=== PATIENT | female | born 1950 | race Caucasian/White ===

== ENCOUNTER 2020-06-17 15:12 | Outpatient (REF) | payer MEDICARE, MEDICAID, SELFPAY ==
--- NOTE | 2020-06-17 | MM_ITS ---
EXAMINATION: MM SCREENING DIGITAL BREAST TOMOSYNTHESIS, BILATERAL CLINICAL INFORMATION: Screening. Asymptomatic. The lifetime risk of breast cancer based on the Tyrer-Cuzick Model is 4%. COMPARISON: Mammography: 12/11/2018, 11/11/2017, 10/18/2016 TECHNIQUE: Digital breast tomosynthesis is performed in both the craniocaudal and mediolateral oblique views along with computer-aided detection (CAD). Synthesized 2D images are generated from the tomosynthesis. FINDINGS: There are scattered areas of fibroglandular density (ACR BI-RADS breast composition Category b). The right breast shows no significant mass or architectural abnormality. There are bilateral benign vascular and round and some coarse calcifications. The axilla and skin contours are unremarkable. The left breast has questionable small irregular focal asymmetric density 2:30 o'clock position mid depth. Patient will be recalled for additional imaging. MM/MM tomosynthesis screening BI IMPRESSION: 1. Left: Subtle focal asymmetric density mid 2:30 o'clock position. 2. Right: No mammographic evidence of malignancy. ASSESSMENT: BI-RADS 0: Incomplete - Need Additional Imaging Evaluation RECOMMENDATION: 1. Additional views of the left breast (3D spot CC; 3D spot ML). 2. Targeted ultrasound if warranted after review of the additional views. 3. Radiology department staff will contact the patient for additional imaging. This patient's information was entered into a reminder system with a target due date for their next mammogram.
== END 2020-06-17 15:13 | disposition home or self-care (01) ==
LOC: HO.MAMMO 15:12
PROVIDERS: PCP Internal Medicine; Visit Provider Internal Medicine
DX: Z12.31 Encounter for screening mammogram for malignant neoplasm of breast (principal)
CPT/HCPCS: 77063; 77067

== ENCOUNTER 2020-07-08 12:49 | Outpatient (REF) | payer MEDICARE, MEDICAID, SELFPAY ==
--- NOTE | 2020-07-08 12:54 | MM_ITS ---
EXAMINATION: MM DIAGNOSTIC DIGITAL BREAST TOMOSYNTHESIS, RIGHT CLINICAL INFORMATION: Density upper outer aspect COMPARISON: Mammography: June 17, 2020 and studies dating back to November 10, 2012 TECHNIQUE: Digital breast tomosynthesis is performed. 2D images are generated from the tomosynthesis. The following views are obtained: Spot compression craniocaudal and 90 degree mediolateral views. FINDINGS: There are scattered areas of fibroglandular density (ACR BI-RADS breast composition Category b). These spot compression views compress out the region to a similar appearance of prior studies dating back to September 28, 2015. No new persistent suspicious lesion is identified. Results are provided to the patient at time of visit by the technologist. MM/MM tomosynthesis added views L IMPRESSION: No specific mammographic evidence to suggest malignancy of the left breast. ASSESSMENT: BI-RADS 1: Negative RECOMMENDATION: Routine annual mammography screening due in 12 months. This patient's information was entered into a reminder system with a target due date for their next mammogram.
== END 2020-07-08 12:50 | disposition home or self-care (01) ==
LOC: HO.MAMMO 12:49
PROVIDERS: PCP Internal Medicine; Visit Provider Internal Medicine
DX: R92.2 Inconclusive mammogram (principal)
CPT/HCPCS: 77061; 77065

== ENCOUNTER 2021-01-09 09:22 | Outpatient (REF) | payer MEDICARE, MEDICAID, SELFPAY ==
[2021-01-09 09:57] LABS: MANUAL DIFF FLAG NO
[2021-01-09 10:00] LABS: Basophils Percent Auto 0.5 % (0-2); Eosinophils Absolute Auto 0.1 X10*3/uL (0.0-0.4); Eosinophils Percent Auto 1.7 % (0-4); Hematocrit 38.4 % (37-47); Hemoglobin 13.3 g/dl (12.0-16.0); Imm Gran Abs Auto 0.02 X10*3/uL (0.00-0.03); Imm Gran Pct Auto 0.3 % (0.0-0.4); Lymphocytes Absolute Auto 1.8 X10*3/uL (1.2-4.9); Lymphocytes Percent Auto 29.5 % (20-40); Mean Corpuscular HGB Conc 34.6 g/dl (31.0-35.0); Mean Corpuscular Volume 86.7 fL (80-98); Mean Platelet Volume 9.6 fL (9.4-12.3); Monocytes Absolute Auto 0.3 X10*3/uL (0.1-1.2); Monocytes Percent Auto 5.6 % (2-11); Neutrophils Absolute Auto 3.8 X10*3/uL (2.0-8.3); Neutrophils Percent Auto 62.4 % (45-73); Platelet Count 185 X10*3/uL (160-400); Red Blood Count 4.43 X10*6/uL (4.20-5.50)
[2021-01-09 10:30] LABS: Alanine Aminotransferase 22 U/L (0-31); Albumin Level 4.3 g/dL (3.5-5.0); Alkaline Phosphatase 65 U/L (39-117); Anion Gap 13 (12-20); Aspartate Amino Transferase 16 U/L (5-31); Blood Urea Nitrogen 18 mg/dL (9-16); Calcium 9.1 mg/dL (8.4-10.2); Carbon Dioxide 27 mmol/L (22-29); Chloride 106 mmol/L (96-108); Cholesterol 203 mg/dL; Estimated Glomerular Filt Rate > 60; Glucose Random 100 mg/dL (60-115); HDL Cholesterol 44 mg/dL; LDL Cholesterol Calculated 129 mg/dl; Potassium 4.3 mmol/L (3.3-5.1); Sodium 142 mmol/L (135-145); Total Protein 6.4 g/dL (6.5-8.0); Triglycerides 151 mg/dL
[2021-01-09 10:50] LABS: Free T4 (Free Thyroxine) 1.04 ng/dL (0.71-1.85); Thyroid Stimulating Hormone 0.24 uIU/mL (0.32-4.0); Vitamin D 25-OH Total 45.4 ng/mL (>30)
[2021-01-09 10:59] LABS: Folate 18.6 ng/mL (> or = 4.0); Vitamin B12 608 pg/mL (200-900)
== END 2021-01-09 09:23 | disposition home or self-care (01) ==
LOC: HO.LAB 09:22
PROVIDERS: PCP Internal Medicine; Visit Provider Internal Medicine
DX: E78.00 Pure hypercholesterolemia, unspecified (principal); I10 Essential (primary) hypertension
CPT/HCPCS: 36415; 80053; 80061; 82306; 82607; 82746; 84439; 84443; 85025

== ENCOUNTER 2021-07-27 11:41 | Outpatient (REF) | payer MEDICARE, MEDICAID, SELFPAY ==
--- NOTE | ~2021-07-27 | MM_ITS ---
EXAMINATION: MM SCREENING DIGITAL BREAST TOMOSYNTHESIS, BILATERAL CLINICAL INFORMATION: Screening. Asymptomatic. The lifetime risk of breast cancer based on the Tyrer-Cuzick Model is 3%. COMPARISON: Mammography: 07/08/2020, 06/17/2020, 12/11/2018, 11/11/2017 TECHNIQUE: Digital breast tomosynthesis is performed in both the craniocaudal and mediolateral oblique views along with computer-aided detection (CAD). Synthesized 2D images are generated from the tomosynthesis. FINDINGS: There are scattered areas of fibroglandular density (ACR BI-RADS breast composition Category b). The left breast shows no significant mass or developing density. Neither breast shows abnormal calcifications or interval architectural changes. The axilla and skin contours are unremarkable. Right breast has nodule 12:00 position anterior to mid depth under 1 cm, increased from prior studies. Margins are incompletely defined. Patient will be recalled for additional imaging to further characterize. MM/MM tomosynthesis screening BI IMPRESSION: 1. Right: Nodule 12:00 position increased from prior exams, margins incompletely defined. 2. Left: No mammographic evidence of malignancy. ASSESSMENT: BI-RADS 0: Incomplete - Need Additional Imaging Evaluation RECOMMENDATION: 1. Additional views of the right breast for margins (spot CC, spot ML). 2. Targeted ultrasound right breast. 3. Radiology department staff will contact the patient for additional imaging. This patient's information was entered into a reminder system with a target due date for their next mammogram.
== END 2021-07-27 11:42 | disposition home or self-care (01) ==
LOC: HO.MAMMO 11:41
PROVIDERS: Visit Provider Internal Medicine
DX: Z12.31 Encounter for screening mammogram for malignant neoplasm of breast (principal)
CPT/HCPCS: 77063; 77067

== ENCOUNTER 2021-08-17 13:47 | Outpatient (REF) | payer MEDICARE, MEDICAID, SELFPAY ==
--- NOTE | ~2021-08-17 | MM_ITS ---
EXAMINATION: MM DIAGNOSTIC DIGITAL BREAST TOMOSYNTHESIS, RIGHT US DIAGNOSTIC ULTRASOUND BREAST, RIGHT CLINICAL INFORMATION: Recall from screening for nodule anterior 12:00 position with incompletely defined margins. COMPARISON: Mammography: 07/27/2021, 06/17/2020, 12/11/2018 TECHNIQUE: Digital breast tomosynthesis is performed. 2D images are generated from the tomosynthesis. The following views are obtained: Spot CC, spot ML. Ultrasound right breast is targeted to the upper breast. Grayscale imaging and color Doppler are performed without and with harmonics. FINDINGS: There are scattered areas of fibroglandular density (ACR BI-RADS breast composition Category b). The additional views demonstrate nodule anterior 12:00 right breast, approximately 0.6 cm. Margins appear smooth. There is no spiculation. Ultrasound demonstrates a simple cyst 12:00 position 4 cm from nipple measuring 0.5 cm. There is increased through-transmission of sound. No associated internal or peripheral color flow. There are 2 adjacent smaller satellite cysts in the area. No solid mass or architectural abnormality. Results are discussed with the patient at time of visit. MM/MM tomosynthesis added views R IMPRESSION: Incidental simple cysts 12:00 anterior breast, largest 0.5 cm and corresponding to finding on mammography. ASSESSMENT: BI-RADS 2: Benign RECOMMENDATION: Routine annual mammography screening. This patient's information was entered into a reminder system with a target due date for their next mammogram.
== END 2021-08-17 13:48 | disposition home or self-care (01) ==
LOC: HO.MAMMO 13:47
PROVIDERS: PCP Internal Medicine; Visit Provider Internal Medicine
DX: R92.2 Inconclusive mammogram (principal); N63.25 Unspecified lump in the left breast, overlapping quadrants
CPT/HCPCS: 76642; 77061; 77065

== ENCOUNTER 2021-09-15 12:41 | Outpatient (REF) | payer MEDICARE, MEDICAID, SELFPAY ==
--- NOTE | ~2021-09-15 | MM_ITS ---
EXAMINATION: BONE DENSITOMETRY CLINICAL INDICATION: Menopause. COMPARISON: Previous BD dated 04/02/2019 and baseline BD dated 04/12/2009. TECHNIQUE: Using a [employer] DXA System (software version: 13.1) manufactured by [employer], dual-energy x-ray absorptiometry was performed of the lumbar spine and left hip. The images are of good technical quality. Summary results are attached. FINDINGS: AP SPINE L1-L4: Current: BMD 1.007 g/cm2, Z-score 0.0, T-score -1.4, osteopenia, 4.1% increase from previous, 20.6% increase from baseline (<5% change is not significant). Prior: BMD 0.967 g/cm2. Baseline: BMD 0.835 g/cm2. LEFT FEMUR, NECK: Current: BMD 0.763 g/cm2, Z-score -0.3, T-score -2.0, osteopenia. Prior: BMD 0.835 g/cm2. Baseline: BMD 0.867 g/cm2. LEFT FEMUR, TOTAL: Current: BMD 0.834 g/cm2, Z-score 0.0, T-score -1.4, osteopenia, 3.1% decrease from previous, 7.8% decrease from baseline (<5% change is not significant). Prior: BMD 0.861 g/cm2. Baseline: BMD 0.905 g/cm2. IDENTIFIED RISK FACTORS: Early menopause, history of fracture (adult), hysterectomy, osteoporosis, secondary osteoporosis. HISTORY OF FRACTURE: Humerus, shoulder. MEDICATIONS: Calcium or multivitamin. Vitamin D. MM/XR DEXA axial skeleton IMPRESSION: 1. DIAGNOSIS: Osteopenia based on the lowest T-score value of -2.0 in the femoral neck applying World Health Organization criteria. 2. 10-YEAR FRACTURE RISK PREDICTION, FRAX: Major osteoporotic fracture (clinical spine, forearm, hip or shoulder) 18.7%. Hip fracture 3.9%. 3. Treatment Recommendations: NOF guidelines recommend consideration for treatment in postmenopausal women and men age 50 and older presenting with the following: -A hip or vertebral (clinical or morphometric) fracture. -T-score less than or equal to -2.5 at the femoral neck or spine after appropriate evaluation to exclude secondary causes. -Low bone mass at the hip or spine and a 10-year fracture probability by FRAX of greater than or equal to 3% for hip fracture or greater than or equal to 20% for major osteoporotic fracture based on the [place] adapted WHO algorithm. 4. Other Recommendations: All treatment decisions require clinical judgment and consideration of individual patient factors, including patient preferences, comorbidities, previous drug use, risk factors not captured in the FRAX model (e.g. frailty, falls, vitamin D deficiency, increased bone turnover, interval significant decline in bone density) and possible under or overestimation of fracture risk by FRAX. Additional medical evaluation for secondary cause of low bone mineral density may be appropriate. FUTURE SCAN RECOMMENDATION: People with diagnosed cases of osteoporosis or at high risk for fracture should have regular bone mineral density tests. For patients eligible for Medicare, routine testing is allowed once every 2 years. The testing frequency can be increased to one year for patients who have rapidly progressing disease, those who are receiving or discontinuing medical therapy to restore bone mass, or have additional risk factors.
== END 2021-09-15 12:42 | disposition home or self-care (01) ==
LOC: HO.MAMMO 12:41
PROVIDERS: Visit Provider Nurse Practitioner Family
DX: Z13.820 Encounter for screening for osteoporosis (principal); Z78.0 Asymptomatic menopausal state
CPT/HCPCS: 77080

== ENCOUNTER 2022-03-08 12:34 | Outpatient (REF) | payer MEDICARE, MEDICAID, SELFPAY ==
[2022-03-08 12:59] LABS: MANUAL DIFF FLAG NO
[2022-03-08 13:27] LABS: Basophils Percent Auto 0.5 % (0-2); Eosinophils Absolute Auto 0.1 X10*3/uL (0.0-0.4); Eosinophils Percent Auto 1.4 % (0-4); Hematocrit 37.4 % (37.0-47.0); Hemoglobin 13.1 g/dl (12.0-16.0); Imm Gran Abs Auto 0.02 X10*3/uL (0.00-0.03); Imm Gran Pct Auto 0.2 % (0.0-0.4); Lymphocytes Absolute Auto 2.3 X10*3/uL (1.2-4.9); Lymphocytes Percent Auto 26.9 % (20-40); Mean Corpuscular Hemoglobin 30.5 pg (27.0-33.0); Mean Platelet Volume 9.7 fL (9.4-12.3); Monocytes Absolute Auto 0.5 X10*3/uL (0.1-1.2); Monocytes Percent Auto 5.6 % (2-11); Neutrophils Absolute Auto 5.6 x10*3/uL (2.0-8.3); Neutrophils Percent Auto 65.4 % (45-73); Platelet Count 198 X10*3/uL (160-400); Red Cell Distribution Width 12.9 % (11.0-16.0); White Blood Count 8.5 X10*3/uL (4.8-10.8)
[2022-03-08 14:12] LABS: Alanine Aminotransferase 29 U/L (0-31); Albumin Level 4.3 g/dL (3.5-5.0); Alkaline Phosphatase 67 U/L (39-117); Anion Gap 16 (12-20); Aspartate Amino Transferase 21 U/L (5-31); Bilirubin Total 1.1 mg/dL (0.0-1.0); Blood Urea Nitrogen 14 mg/dL (9-16); Calcium 9.1 mg/dL (8.4-10.2); Carbon Dioxide 27 mmol/L (22-29); Chloride 100 mmol/L (96-108); Cholesterol 208 mg/dL; Estimated Glomerular Filt Rate > 60; Glucose Random 85 mg/dL (60-115); HDL Cholesterol 42 mg/dL; LDL Cholesterol Calculated 128 mg/dl; Potassium 4.5 mmol/L (3.3-5.1); Sodium 138 mmol/L (135-145); Total Protein 6.6 g/dL (6.5-8.0); Triglycerides 191 mg/dL
[2022-03-08 14:35] LABS: Free T4 (Free Thyroxine) 1.09 ng/dL (0.71-1.85); Thyroid Stimulating Hormone 0.46 uIU/mL (0.32-4.0)
[2022-03-08 14:41] LABS: Folate > 20.0 ng/mL (> or = 4.0); Vitamin B12 607 pg/mL (200-900)
== END 2022-03-08 12:35 | disposition home or self-care (01) ==
LOC: HO.LAB 12:34
PROVIDERS: PCP Internal Medicine; Visit Provider Internal Medicine
DX: R79.89 Other specified abnormal findings of blood chemistry (principal); E78.00 Pure hypercholesterolemia, unspecified; I10 Essential (primary) hypertension
CPT/HCPCS: 36415; 80053; 80061; 82306; 82607; 82746; 84439; 84443; 85025

== ENCOUNTER 2022-08-01 11:48 | Outpatient (REF) | payer MEDICARE, MEDICAID, SELFPAY ==
--- NOTE | ~2022-08-01 | MM_ITS ---
EXAMINATION: MM SCREENING DIGITAL BREAST TOMOSYNTHESIS, BILATERAL CLINICAL INFORMATION: Screening. Asymptomatic. History excisional biopsy left breast, 1989. COMPARISON: Mammography: 08/17/2021, 07/27/2021, 07/08/2020, 06/17/2020, 12/11/2018, right breast ultrasound 08/17/2021 TECHNIQUE: Digital breast tomosynthesis is performed in both the craniocaudal and mediolateral oblique views along with computer-aided detection (CAD). Synthesized 2D images are generated from the tomosynthesis. FINDINGS: There are scattered areas of fibroglandular density (ACR BI-RADS breast composition Category b). Parenchymal pattern is similar to prior exams and there is no significant mass or interval architectural abnormality or developing density. A stable nodule 12:00 right breast is again seen consistent with cyst on prior ultrasound. The bilateral axilla and skin contours are unremarkable. Left breast shows no abnormal calcifications. The right breast has interval tightly grouped fine calcifications central 12:00 position 4 cm from nipple, possibly vascular. Patient will be recalled for additional imaging with magnification views to fully characterize. MM/MM tomosynthesis screening BI IMPRESSION: Right: -Tightly grouped fine calcifications central 12:00 position, possibly vascular. Left: -No mammographic evidence of malignancy. ASSESSMENT: BI-RADS 0: Incomplete - Need Additional Imaging Evaluation RECOMMENDATION: 1. Additional views of the right breast (magnification CC, magnification ML). 2. Radiology department staff will contact the patient for additional imaging. This patient's information was entered into a reminder system with a target due date for their next mammogram.
== END 2022-08-01 11:49 | disposition home or self-care (01) ==
LOC: HO.MAMMO 11:48
PROVIDERS: PCP Internal Medicine; Visit Provider Internal Medicine
DX: Z12.31 Encounter for screening mammogram for malignant neoplasm of breast (principal)
CPT/HCPCS: 77063; 77067

== ENCOUNTER 2022-08-17 09:11 | Outpatient (REF) | payer MEDICARE, MEDICAID, SELFPAY ==
--- NOTE | ~2022-08-17 | MM_ITS ---
EXAMINATION: MM DIAGNOSTIC DIGITAL MAMMOGRAPHY, RIGHT CLINICAL INFORMATION: Callback for calcifications. COMPARISON: Mammography: 08/01/2022 and studies dating back to 09/28/2015. TECHNIQUE: Digital mammography is performed in the following views: Spot magnification views of the right breast in craniocaudal and 90 degree mediolateral views. FINDINGS: There are scattered areas of fibroglandular density (ACR BI-RADS breast composition Category b). The grouping of calcifications within the superior lateral central region of the right breast are indeterminate in nature and stereotactic core biopsy is recommended. Results are discussed with the patient at time of visit. [facility] patient navigator called above recommendation to referring provider's office. MM/MM added views RT IMPRESSION: Right breast calcifications for which stereotactic core biopsy is recommended. ASSESSMENT: BI-RADS 4: Suspicious RECOMMENDATION: Stereotactic core biopsy of the right breast.
== END 2022-08-17 09:12 | disposition home or self-care (01) ==
LOC: HO.MAMMO 09:11
PROVIDERS: PCP Internal Medicine; Visit Provider Internal Medicine
DX: R92.1 Mammographic calcification found on diagnostic imaging of breast (principal)
CPT/HCPCS: 77065

== ENCOUNTER 2022-08-29 09:10 | Outpatient (REF) | payer MEDICARE, MEDICAID, SELFPAY ==
--- NOTE | ~2022-08-29 | MM_ITS ---
EXAMINATION: STEREOTACTIC TOMOSYNTHESIS-GUIDED VACUUM-ASSISTED BREAST BIOPSY, RIGHT SPECIMEN RADIOGRAPH, RIGHT POST PROCEDURE DIGITAL MAMMOGRAM, RIGHT CLINICAL INFORMATION: Tightly grouped fine calcifications mid 12:00 right breast. COMPARISON: Mammography 08/17/2022, 08/01/2022, 08/17/2021. TECHNIQUE/PROCEDURE: Informed consent was obtained from the patient after discussion of the benefits, risks, and alternatives to biopsy today. Patient appeared to understand. Gave opportunity for questions. Patient signed consent form. BIOPSY TABLE: [employer] Affirm Prone Biopsy System. LESION: Findings highly grouped calcifications mid 12:00 right breast. LOCAL ANESTHESIA: 10 mL carbonated 1% lidocaine; 10 mL 1% lidocaine with epinephrine. DERMATOTOMY: Single skin celsa dermatotomy performed. NEEDLE: [employer] Eviva 9-gauge vacuum assisted core biopsy device. APPROACH: Craniocaudal. TARGETING: Combination of digital breast tomosynthesis and stereotactic digital mammography used for targeting. CORES: 4. CLIP: [employer] Cylinder-shaped marker. SPECIMEN RADIOGRAPH: Specimen radiograph is taken in separate room using digital mammography. The index calcifications are in the excised cores. There are over 25 calcifications in the cores. POST PROCEDURE UNILATERAL DIGITAL MAMMOGRAM: The post biopsy mammogram is performed in separate room using separate digital mammography equipment from the biopsy procedure. CC and ML views are obtained. There are scattered areas of fibroglandular density (breast composition category: b). The clip marker is in position. The calcifications are markedly decreased at the biopsy site and no longer clearly visualized. No gross hematoma. The patient tolerated the procedure well. No immediate complications. Home instructions reviewed with the patient. Final pathology results are pending. MM/MM stereotactic biopsy RT IMPRESSION: 1. Digital tomosynthesis-guided core biopsy right breast with clip placement. 2. Specimen radiograph taken and post procedure mammogram. There is satisfactory positioning of the biopsy clip. 3. Final pathology results pending. An addendum report will be issued.
[2022-08-29] MEDS: Lidocaine HCl 1 % 20 ML VIAL 9 ML SUBCUT (11:59)
[2022-08-29] MEDS: Lidocaine HCl 1% PF/Epi 1:200,000 30 ML VIAL 10 ML SUBCUT (12:01)
[2022-08-29] MEDS: Sodium Bicarbonate 8.4% 50 MEQ/50 ML VIAL SUBCUT (12:02)
== END 2022-08-29 09:11 | disposition home or self-care (01) ==
LOC: HO.MAMMO 09:10
PROVIDERS: PCP Internal Medicine; Visit Provider Surgery
DX: R92.1 Mammographic calcification found on diagnostic imaging of breast (principal); Z79.899 Other long term (current) drug therapy
CPT/HCPCS: 19081; 88305; 88341; 88342; 88360; 99202; A4648

== ENCOUNTER → 2022-09-06 10:50 | Outpatient (BNVA) | payer MEDICARE, MEDICAID, SELFPAY | PROVIDERS: PCP Internal Medicine; Visit Provider Surgery | DX: D24.1 Benign neoplasm of right breast (principal) | CPT/HCPCS: 99212 ==

== ENCOUNTER 2022-09-21 08:50 | Day surgery (SDC) | payer MEDICARE, MEDICAID, SELFPAY ==
[2022-09-19 10:54] VITALS: BMI 30.2
[2022-09-21] VITALS (9 sets, daily range): BP systolic 130–187; BP diastolic 66–84; PULSE 65–73; RESP 16–20; TEMP 36.4–36.9; O2SAT 90–98; BMI 29.9; BMI 30.9
--- NOTE | ~2022-09-21 | MM_ITS ---
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 COMPARISON: Stereotactic biopsy 08/29/2022, mammography 08/17/2022, 08/01/2022 TECHNIQUE NEEDLE LOC: Proper informed consent is obtained from the patient after discussion of the procedure, potential risks and complications, and alternatives including declining the procedure today. Patient was given an opportunity for questions. The patient appeared to understand. The patient consented to the procedure and signed the consent form. GUIDANCE: Digital mammography. APPROACH: Cranio-caudal. TARGET: Cylinder shaped clip marker mid 12:00. ANESTHESIA: lidocaine carbonated 1%: 6 mL. LOCALIZATION MARKER: [place] [employer]. 5 cm length. The skin is prepped and local anesthesia administered. The needle is positioned and position assessed with mammography. The wire is hooked into position. Berger needle protector placed. The patient tolerated the procedure well and had no immediate complication. Procedure results discussed with Dr. Porter following the localization procedure. TECHNIQUE SPECIMEN RADIOGRAPH: Imaging of the excised specimen is performed using digital mammography in 1 view. FINDINGS SPECIMEN RADIOGRAPH: The needle and hookwire are removed from the specimen prior to delivery to radiology. The biopsy clip marker is within the specimen. There are some fine calcifications adjacent to the clip marker as well as other benign scattered coarse and vascular calcifications in the specimen. Results were called to Dr. Galdino Porter in the operating room at the time of imaging. MM/MM needle loc RT IMPRESSION: 1. Status post right breast needle localization with wire hooked into position. 2. Post operative specimen radiograph obtained.
--- NOTE | 2022-09-21 10:08 | PC.NURSE ---
to needle loc 1007
--- NOTE | 2022-09-21 10:27 | MHC.SHP ---
Pre-Procedural Eval Section A Date of Service: 09/21/22 The patient is an INPATIENT: No Changes since office visit: No Cold of Flu in the past 2 weeks, No New Medical Problems, No Changes in Medication and No Patient answered all questions The History & Physical has been completed within 30 days and I have reviewed it.: Yes Section B Chief Complaint: Benign neoplasm of right breast Allergies: Allergies Allergy/AdvReac Type Severity Reaction Status Date / Time amoxicillin [Augmentin] Allergy Unknown Unknown Verified 09/06/22 11:17 clavulanic acid [Augmentin] Allergy Unknown unknown Verified 09/06/22 11:17 Plan I have reviewed the history and physical and performed a pertinent physical examination on my patient. No changes have occurred unless specified. Time Spent With Patient Time: Total time managing care of this patient today ____ minutes.
--- NOTE | 2022-09-21 11:08 | P.CONAN_ITS ---
FORMERLY [facility], 1928–1983 Active Problems Active Problems: All Active Problems (Updated 09/06/22 @ 11:20 by Galdino Porter MD) Low TSH level (Acute) Intraductal papilloma of right breast (Acute) Breast calcification, right (Acute) Hypertension (Acute) Bipolar disorder (Acute) Obesity (BMI 30-39.9) (Acute) Hypercholesterolemia (Acute) Past Medical History Medical History Adult general medical exam Bipolar disorder Breast calcification, right Breast cancer screening by mammogram Breast density Hypercholesterolemia Hypertension Intraductal papilloma of right breast Obesity (BMI 30-39.9) Post-menopausal Splenic lesion Thyroid nodule Family History Family History Father Hypertension Mother Cancer Surgical History Surgical History H/O colonoscopy H/O varicose vein stripping History of left breast biopsy History of removal of retained hardware History of surgery History of vaginal hysterectomy History of Problems with Anesthesia: No Social History Social History Housing: House Alcohol intake: former Patient Tobacco Use Status: Former Tobacco user Tobacco use type: Cigarette e-Cigarette/Vaping Use: Never Used Second Hand Smoke Exposure: No Advance Directives: No Advance Directives Information Provided: Yes Current occupational status: retired Cognitive needs: No Hearing needs: No Vision needs: Yes Meds Allergies Allergy/AdvReac Type Severity Reaction Status Date / Time amoxicillin [Augmentin] Allergy Unknown Unknown Verified 09/06/22 11:17 clavulanic acid [Augmentin] Allergy Unknown unknown Verified 09/06/22 11:17 Home Medications Medication Instructions Recorded Confirmed Last Taken Type ascorbate calcium (vitamin C) 500 500 mg PO DAILY 07/07/20 09/19/22 Unknown History mg tablet calcium carb-ergocalciferol (vit 1 tab PO DAILY 07/07/20 09/19/22 Unknown History D2) 500 mg-125 unit tablet docusate sodium 100 mg capsule 100 mg PO DAILY 07/07/20 09/19/22 Unknown History (Stool Softener) multivitamin 1 tab PO DAILY 07/07/20 09/19/22 Unknown History aripiprazole 20 mg tablet (Abilify) 20 mg PO DAILY 06/14/22 09/19/22 Unknown History aripiprazole 5 mg tablet (Abilify) 5 mg PO BEDTIME 06/14/22 09/19/22 Unknown History Exam Exam Date and Time: September 21, 2022 1108 Height,Weight and Vital Signs: Height 5 ft 3 in Weight 76.657 kg Last Vital Signs Temp 97.9 F 09/21/22 09:12 Pulse 73 09/21/22 09:12 Resp 16 09/21/22 09:12 BP 158/74 H 09/21/22 09:12 Pulse Ox 96 09/21/22 09:12 O2 Del Method 09/21/22 09:12 Airway Mallampati Class: III Neck ROM: Full Partial: Upper and Lower Loose/Missing/Broken Teeth: Yes, Upper and Lower Heart: RRR Lungs: CTA Assessment and Plan Assessment Anesthesia Assessment: Anesthesia Plan Discussed and Chart Reviewed Final Anesthetic Review History of Problems with Anesthesia: No NPO: Yes ASA Class: II Final Preanesthetic Review: Meds/Allgs Chart Reviewed, Consent Obtained/Reviewed and Anes Risks/Benef Reviewed Patient Risk: Low Procedure Risk: Low Anesthetic Plan Anesthetic Plan: GA Disposition: Standard PACU
[2022-09-21] MEDS: Lidocaine HCl 1 % 20 ML VIAL 9 ML SUBCUT (11:16)
[2022-09-21] MEDS: Sodium Bicarbonate 8.4% 50 MEQ/50 ML VIAL SUBCUT (11:18)
--- NOTE | 2022-09-21 12:21 | W.PM.OPN ---
Operative Note Operative Note Date of Service: 09/21/22 Narrative: Preop diagnosis: Atypical intraductal proliferation Postop diagnosis: same Procedure: Right breast lumpectomy with needle localization Surgeon: Galdino Porter MD First asst: UCHE Wang The patient is a 71F who has a stereotactic biopsy for calcifications of the right breast which showed atypical itnraductal hyperplasia. Surgical excision was recommended in view of association with higher grade lesions. She understood the technique of lumpectomy with needle localization. She was aware of the risks, benefits and alternatives. She underwent needle localization earlier. The localizing wire was seen to enter almost perpendicularly to the skin on the upper part of fhe right breast. I reviewed the images with Dr. Allen. The patient was brought to the OR and placed supine under general anesthesia via LMA. The right breast was prepped and draped in the usual sterile fashion. I infiltrated the planned line of incision with Lidocaine 1%. I made the transverse incision using a blade 15. This was carried down through the full thickness of the skin with electrocautery. I then used the curved Omalley scissors to dissect through breast tissue surrounding the localizing needle. This was done circumferentially until I was past the curved tip of the wire. I was therefore palpating for the needle as we dissected for accurate orientation. I then marked the superior and lateral margins with sutures. As I was dissected past the deep margins, the wire was pulled out inadvertently with retraction but at this point, we were about ready to truncate the deep margin. I therefore completed the dissection circumferentially and the specimen was sent for re ray. I palpated the margins of the cavity. I felt some irregular tissue in the deep margin so I excised this and sent this as additional deep margins. I copiously irrigated. I cauterized oozing areas. Once hemostasis was confirmed, I reapposed deep breast tissue with simple Polysorb 3-0 sutures. Skin closure was achieved with subcuticular Polysorb 4-0 running sutures. Steristrips and dressings were applied. The area was infiltrated with Marcaine .5% for postop analgesia. She tolerated the procedure well. There were no immediate complications. Initial and final counts of sponges and instruments were correct. EBL was minimal. She was extubated without difficulty and transferred to the PACU with stable VS. The radiologist called at the end of the case confirming good position of the biopsy clip in the specimen.
[2022-09-21] MEDS: Acetaminophen 325 MG TABLET 650 MG PO (13:20)
== END 2022-09-21 14:09 | disposition home or self-care (01) ==
PROVIDERS: PCP Internal Medicine; Visit Provider Surgery
PROC: (CPT 19301; principal; 2022-09-21 11:20)
DX: D05.11 Intraductal carcinoma in situ of right breast (principal); D73.89 Other diseases of spleen; I10 Essential (primary) hypertension; E78.00 Pure hypercholesterolemia, unspecified; E04.1 Nontoxic single thyroid nodule; F31.9 Bipolar disorder, unspecified; E66.9 Obesity, unspecified; Z68.31 Body mass index [BMI] 31.0-31.9, adult; Z79.899 Other long term (current) drug therapy; Z88.1 Allergy status to other antibiotic agents; Z87.891 Personal history of nicotine dependence
CPT/HCPCS: 19301; 19281; 88307; 88329; 88360; A4648; J0690; J1100; J2405; J2795; J3010

== ENCOUNTER → 2022-10-04 10:28 | Outpatient (BNVA) | payer MEDICARE, MEDICAID, SELFPAY | PROVIDERS: PCP Internal Medicine; Visit Provider Surgery | DX: D05.10 Intraductal carcinoma in situ of unspecified breast (principal) | CPT/HCPCS: 99212 ==

== ENCOUNTER → 2022-10-09 14:26 | Outpatient (BNV) | payer MEDICARE, MEDICAID, SELFPAY | PROVIDERS: PCP Internal Medicine; Visit Provider Internal Medicine | DX: D05.10 Intraductal carcinoma in situ of unspecified breast (principal); M85.80 Other specified disorders of bone density and structure, unspecified site | CPT/HCPCS: 99205; 99214; G2211 ==

== ENCOUNTER → 2022-10-17 12:27 | Outpatient (BNVA) | payer MEDICARE, MEDICAID, SELFPAY | PROVIDERS: PCP Internal Medicine; Visit Provider Dietitian, Registered | DX: E66.9 Obesity, unspecified (principal); Z68.31 Body mass index [BMI] 31.0-31.9, adult | CPT/HCPCS: 97802 ==

== ENCOUNTER → 2022-12-26 09:46 | Outpatient (BNVA) | payer MEDICARE, MEDICAID, SELFPAY | PROVIDERS: PCP Internal Medicine; Visit Provider Dietitian, Registered | DX: E66.9 Obesity, unspecified (principal); Z68.30 Body mass index [BMI] 30.0-30.9, adult; Z71.3 Dietary counseling and surveillance | CPT/HCPCS: 97803 ==

== ENCOUNTER 2023-02-04 15:15 | Outpatient (AMB) | payer MEDICARE, MEDICAID, SELFPAY ==
[2023-02-04 15:23] VITALS: BP 138/76; PULSE 82; O2SAT 94; BMI 30.5
--- NOTE | 2023-02-04 15:23 | A.OFFPC_ITS ---
Vital Signs 02/04/23 15:23 Height 5 ft 2 in Weight 167 lb BMI 30.5 BP 138/76 Blood Pressure Location Lt brachial Position Sitting Pulse 82 Pulse Source Pulse Oximeter Pulse Oximetry (%) 94 Oxygen Delivery Method Room Air Intake Visit Reasons: 6M. F/U-Cholesterol/Obesity Allergies amoxicillin [Augmentin] Allergy (Unknown, Verified 02/04/23 15:23) Unknown clavulanic acid [Augmentin] Allergy (Unknown, Verified 02/04/23 15:23) unknown Medication List - Last Reconciled 02/04/23 by Alex Davis MD alendronate (Fosamax) 70 mg PO QWEEK aripiprazole (Abilify) 2.5 mg PO BEDTIME calcium carbonate-vitamin D2 500-125 mg-unit 1 tab PO DAILY docusate sodium (Stool Softener) 100 mg PO DAILY letrozole 2.5 mg PO DAILY lisinopril 20 mg PO DAILY multivitamin 1 tab PO DAILY Tobacco use date assessed: 02/04/23 Fall risk assessment: No Falls in past year Last assessed Fall Risk: 02/04/23 Dental Screening Dental Screen Date: 02/04/23 Did you have a dental visit in the last 12 months?: Yes Did you have a dental problem in the last 6 months where you did not have access to dental care?: No Was dental information given to patient?: Patient has dentist HPI 6M. F/U-Cholesterol/Obesity HPI Details [age] Year old obese female with hypercholesterolemia hypertension bipolar disorder coming in for follow-up. Last seen in May 2022. Mammogram up-to-date bone density up-to-date Cologuard due. Patient has been follow-up with hematology oncology right breast DCIS August 2022 patient has completed adjuvant radiation therapy at [facility] patient undergone right breast lumpectomy 09/21/2022 revealing ductal carcinoma re-excision showed no residual carcinoma started on letrozole patient has been started on Fosamax [facility] Medical History (Updated 02/04/23 @ 16:14 by Alex Davis MD) Adult general medical exam Bipolar disorder Breast calcification, right Breast cancer screening by mammogram Breast density DCIS (ductal carcinoma in situ) 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/22) Hypercholesterolemia Hypertension Intraductal papilloma of right breast Obesity (BMI 30-39.9) Post-menopausal Splenic lesion Thyroid nodule Surgical History H/O colonoscopy H/O varicose vein stripping History of left breast biopsy History of removal of retained hardware History of surgery History of vaginal hysterectomy Family History (Updated 02/04/23 @ 15:24 by Mary Ann Pereira [facility]) Father Hypertension Mother Cancer Social History Household Members: None Housing: Apartment Alcohol intake: former Patient Tobacco Use Status: Former Tobacco user Tobacco use type: Cigarette e-Cigarette/Vaping Use: Never Used Second Hand Smoke Exposure: No service: No Current occupational status: retired Cognitive needs: No Hearing needs: No Vision needs: Yes Questionnaire PHQ-9 Over the last 2 weeks, how often have you been bothered by any of the following problems? 1. Little interest or pleasure in doing things: not at all 2. Feeling down, depressed, or hopeless: not at all 3. Trouble falling or staying asleep, or sleeping too much: not at all 4. Feeling tired or having little energy: not at all 5. Poor appetite or overeating: not at all 6. Feeling bad about yourself - or that you are a failure or have let yourself or your family down: not at all 7. Trouble concentrating on things, such as reading the newspaper or watching television: not at all 8. Moving or speaking so slowly that other people could have noticed. Or the opposite - being so fidgety or restless that you have been moving around a lot more than usual: not at all 9. Thoughts that you would be better off or of hurting yourself in some way: not at all Total score: 0 Depression Screening Interpretation: Negative Source: Developed by Drs. Amadou Baxter, Joanie Palacio, Ty Thomas and colleagues, with an educational jody from [employer]. Thrive Questionnaire Date Thrive assessed: 02/04/23 I am a: Patient What is your living situation today?: I have a steady place to live Within the past 12 months, did the food you bought not last and you didn't have the money to get more?: Never true Within the past 12 months, did you worry whether your food would run out before you got money to buy more?: Never true Do you have trouble paying for medicines?: No Do you have trouble getting transportation to medical appointments?: No Do you have trouble paying your heating and electricity bill?: No Do you have trouble taking care of your child, family member or friend?: No Do you have trouble with day-to-day activities such as bathing, preparing meals, shopping, managing finances, etc.?: No Are you currently unemployed and looking for a job?: No Are you interested in more education?: No Currently or been in a relationship where the following occur: no concerns reported AUDIT C Alcohol Use Questionnaire (AUDIT-C) 1. How often do you have a drink containing alcohol?: Never 3. How often do you have six or more drinks on one occasion?: Never Total Score: 0 KRISSY-7 AMB Questionnaire KRISSY-7 Date KRISSY - 7 assessed: 02/04/23 Feeling nervous, anxious, or on edge: 0 = Not at all Not being able to stop or control worryin = Not at all Worrying too much about different things: 0 = Not at all Trouble relaxin = Not at all Being so restless that it is hard to sit still: 0 = Not at all Becoming easily annoyed or irritable: 0 = Not at all Feeling afraid as if something awful might happen: 0 = Not at all Total KRISSY-7 score (0-4 normal; 5-9 mild; 10-14 moderate; 15-21 severe): 0 Source: Developed by Drs. Amadou Baxter, Joanie Palacio, Ty Thomas and colleagues, with an educational jody from [employer]. Physical exam (Primary Care) Vital Signs: Last Vital Signs Pulse 82 02/04/23 15:23 BP 138/76 02/04/23 15:23 Pulse Ox 94 02/04/23 15:23 Oxygen Delivery Method Room Air 02/04/23 15:23 BMI result Body Mass Index 30.5 Tobacco/Smoking Status: Tobacco use Status Tobacco use date assessed 02/04/23 02/04/23 15:29 Patient Tobacco Use Status Former Tobacco user 02/04/23 15:29 Tobacco use type Cigarette 02/04/23 15:29 e-Cigarette/Vaping Use Never Used 02/04/23 15:29 PHQ-9: PHQ-9 Score PHQ-9: Total score 0 02/04/23 15:29 Depression Screening Interpretation: Negative Thrive Assessment: Date of Thrive Assessment Date Thrive assessed 02/04/23 02/04/23 15:29 Currently or been in a relationship where the following occur: no concerns reported Const General: alert; No acute distress Eyes Conjunctivae: conjunctivae normal Resp Auscultation: clear to auscultation bilaterally Cardio Rate: regular rate Rhythm: regular rhythm GI Inspection: Yes normal to inspection Extrem General: Yes normal to inspection and No edema Assessment and Plan Assessment & Plan (1) DCIS (ductal carcinoma in situ): Comment: Right breast Augustuctal carcinoma in situ, nuclear grade 2-3, cribriform and comedo patterns, with central necrosis and focal calcifications, extending into lobules. Code(s): D05.10 - Intraductal carcinoma in situ of unspecified breast Plan: Patient is presently following up with Hematology-Oncology (2) Hypertension: Code(s): I10 - Essential (primary) hypertension Qualifiers: Hypertension type: essential hypertension Qualified Code(s): I10 - Essential (primary) hypertension Plan: Continue with blood pressure medication. Decrease salt intake and exercise patient is on lisinopril 20 mg once a day (3) Bipolar disorder: Comment: WESLEY [place] Code(s): F31.9 - Bipolar disorder, unspecified Qualifiers: Active/Remission status: currently active Current bipolar episode type: mixed Current episode severity: moderate Qualified Code(s): F31.62 - Bipolar disorder, current episode mixed, moderate Plan: Continue with counseling and therapy (4) Obesity (BMI 30-39.9): Code(s): E66.9 - Obesity, unspecified Plan: Diet and exercise (5) Hypercholesterolemia: Code(s): E78.00 - Pure hypercholesterolemia, unspecified Plan: Avoid fried foods, chicken skin, eggs, butter margarine, pastries and meat. Be it pork or beef they have a lot of cholesterol LDL goal of less than 130 and triglyceride of less than 150 last blood work was February 2022 (6) Osteopenia: Code(s): M85.80 - Other specified disorders of bone density and structure, unspecified site Plan: August 2021- nest 08/2023 (7) Colon cancer screening: Code(s): Z12.11 - Encounter for screening for malignant neoplasm of colon Orders: Orders Complete Blood Count Auto Diff 1 Month E78.00 - Pure hypercholesterolemia, unspecified Comprehensive Met. Panel 1 Month E78.00 - Pure hypercholesterolemia, unspecified Free T4 (Free Thyroxine) 1 Month E78.00 - Pure hypercholesterolemia, unspecified Thyroid Stimulating Hormone 1 Month E78.00 - Pure hypercholesterolemia, unspecified Vitamin B12 and Folate 1 Month E78.00 - Pure hypercholesterolemia, unspecified Lipid Panel 1 Month E78.00 - Pure hypercholesterolemia, unspecified Vitamin D 25-OH Total 1 Month E78.00 - Pure hypercholesterolemia, unspecified Referrals Cologuard Test Z12.11 - Encounter for screening for malignant neoplasm of colon Coding Level of Care Code Est Pt Level 4 (04992) Diagnoses DCIS (ductal carcinoma in situ) D05.10 Hypertension I10 Hypertension type: essential hypertension Bipolar disorder F31.62 Active/Remission status: currently active Current bipolar episode type: mixed Current episode severity: moderate Obesity (BMI 30-39.9) E66.9 Hypercholesterolemia E78.00 Osteopenia M85.80 Colon cancer screening Z12.11
== END 2023-02-04 16:20 | disposition home or self-care (01) ==
PROVIDERS: Visit Provider Internal Medicine
DX: I10 Essential (primary) hypertension (principal); F31.62 Bipolar disorder, current episode mixed, moderate; E66.9 Obesity, unspecified; Z68.30 Body mass index [BMI] 30.0-30.9, adult; D05.10 Intraductal carcinoma in situ of unspecified breast; E78.00 Pure hypercholesterolemia, unspecified; M85.80 Other specified disorders of bone density and structure, unspecified site; Z12.11 Encounter for screening for malignant neoplasm of colon
CPT/HCPCS: 99214

== ENCOUNTER 2023-02-28 11:40 | Outpatient (REF) | payer MEDICARE, MEDICAID, SELFPAY ==
[2023-02-28 11:55] LABS: MANUAL DIFF FLAG NO
[2023-02-28 12:11] LABS: Basophils Percent Auto 0.4 % (0-2); Eosinophils Absolute Auto 0.1 X10*3/uL (0.0-0.4); Eosinophils Percent Auto 1.5 % (0-4); Hematocrit 38.2 % (37.0-47.0); Hemoglobin 13.3 g/dl (12.0-16.0); Imm Gran Abs Auto 0.02 X10*3/uL (0.00-0.03); Imm Gran Pct Auto 0.3 % (0.0-0.4); Lymphocytes Absolute Auto 1.6 X10*3/uL (1.2-4.9); Lymphocytes Percent Auto 21.5 % (20-40); Mean Corpuscular HGB Conc 34.8 g/dl (31.0-35.0); Mean Corpuscular Hemoglobin 30.7 pg (27.0-33.0); Mean Corpuscular Volume 88.2 fL (80.0-98.0); Mean Platelet Volume 9.6 fL (9.4-12.3); Monocytes Absolute Auto 0.5 X10*3/uL (0.1-1.2); Monocytes Percent Auto 6.8 % (2-11); Neutrophils Percent Auto 69.5 % (45-73); Platelet Count 189 X10*3/uL (160-400); Red Blood Count 4.33 X10*6/uL (4.20-5.50); White Blood Count 7.2 X10*3/uL (4.8-10.8)
[2023-02-28 12:52] LABS: Alanine Aminotransferase 22 U/L (0-31); Albumin Level 4.3 g/dL (3.5-5.0); Alkaline Phosphatase 76 U/L (39-117); Anion Gap 14 (12-20); Aspartate Amino Transferase 18 U/L (5-31); Bilirubin Total 0.9 mg/dL (0.0-1.0); Blood Urea Nitrogen 12 mg/dL (9-16); Calcium 9.6 mg/dL (8.4-10.2); Carbon Dioxide 26 mmol/L (22-29); Chloride 106 mmol/L (96-108); Cholesterol 188 mg/dL; Estimated Glomerular Filt Rate > 60; Glucose Random 90 mg/dL (60-115); HDL Cholesterol 41 mg/dL; LDL Cholesterol Calculated 113 mg/dl; Potassium 4.5 mmol/L (3.3-5.1); Sodium 141 mmol/L (135-145); Total Protein 6.9 g/dL (6.5-8.0); Triglycerides 170 mg/dL
[2023-02-28 13:10] LABS: Free T4 (Free Thyroxine) 0.98 ng/dL (0.71-1.85); Thyroid Stimulating Hormone 0.62 uIU/mL (0.32-4.0); Vitamin D 25-OH Total 66.8 ng/mL (>30)
[2023-02-28 13:23] LABS: Folate 17.9 ng/mL (> or = 4.0); Vitamin B12 749 pg/mL (200-900)
== END 2023-02-28 11:41 | disposition home or self-care (01) ==
LOC: HO.LAB 11:40
PROVIDERS: PCP Internal Medicine; Visit Provider Internal Medicine
DX: E78.00 Pure hypercholesterolemia, unspecified (principal); E55.9 Vitamin D deficiency, unspecified
CPT/HCPCS: 36415; 80053; 80061; 82306; 82607; 82746; 84439; 84443; 85025

== ENCOUNTER 2023-03-12 10:28 | Outpatient (AMB) | payer MEDICARE, MEDICAID, SELFPAY ==
[2023-03-12 10:38] VITALS: BMI 30.4
--- NOTE | 2023-03-12 10:38 | MHC.AMNUTRGE ---
Intake VS Expanded 03/12/23 10:38 Height 5 ft 2 in Weight 166 lb 7.184 oz BMI 30.4 Intake Visit Reasons: obesity Allergies amoxicillin [Augmentin] Allergy (Unknown, Verified 02/04/23) Unknown clavulanic acid [Augmentin] Allergy (Unknown, Verified 02/04/23) unknown HPI Nutrition Presentation Details Pt presents for MNT for obesity Pt reports participating in [employer], looking forward to preparing salads and trying new recipes Pt reports participating in stretching exercises at home, reports having access to treadmill at the [employer] facility Meals consists of B: Whole wheat bread or exekiel bread and peanut butter L: frozen meals (healthy choice ) or salad with chicken D: eats out burger fries or pizza ( twice a week) or homemade pasta salad snack on fruits/ice cream/crackers w p.b or salsa Food frequency dairy: 4-5 serving/d fruits 1-2/d protein : eggs, poultry, beef/cheese vegetables : 2 serving /daily starches > 15 servings pastries : once daily Most Recent Diabetes Results: Cholesterol 188 mg/dL 02/28/23 HDL Cholesterol 41 mg/dL 02/28/23 Triglycerides 170 mg/dL 02/28/23 Creatinine 0.72 mg/dL (0.5-1.4) 02/28/23 Blood Urea Nitrogen 12 mg/dL (9-16) 02/28/23 Sodium 141 mmol/L (135-145) 02/28/23 Potassium 4.5 mmol/L (3.3-5.1) 02/28/23 Chloride 106 mmol/L (96-108) 02/28/23 Carbon Dioxide 26 mmol/L (22-29) 02/28/23 Calcium 9.6 mg/dL (8.4-10.2) 02/28/23 AST 18 U/L (5-31) 02/28/23 ALT 22 U/L (0-31) 02/28/23 Total Protein 6.9 g/dL (6.5-8.0) 02/28/23 Albumin 4.3 g/dL (3.5-5.0) 02/28/23 [facility] Medical History (Updated 02/04/23 @ 16:14 by Alex Davis MD) Adult general medical exam Bipolar disorder Breast calcification, right Breast cancer screening by mammogram Breast density DCIS (ductal carcinoma in situ) 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/22) Hypercholesterolemia Hypertension Intraductal papilloma of right breast Obesity (BMI 30-39.9) Post-menopausal Splenic lesion Thyroid nodule Surgical History H/O colonoscopy H/O varicose vein stripping History of left breast biopsy History of removal of retained hardware History of surgery History of vaginal hysterectomy Family History (Updated 02/04/23 @ 15:24 by Mary Ann Pereira [facility]) Father Hypertension Mother Cancer Social History Household Members: None Housing: Apartment Alcohol intake: former Patient Tobacco Use Status: Former Tobacco user Tobacco use type: Cigarette e-Cigarette/Vaping Use: Never Used Second Hand Smoke Exposure: No service: No Current occupational status: retired Cognitive needs: No Hearing needs: No Vision needs: Yes Assessment & Plan Assessment & Plan (1) Obesity (BMI 30-39.9): Code(s): E66.9 - Obesity, unspecified Plan: Educate Pt on reducing fats/portions ? Used wt : 87 kg (BMI 31 on 09/2022) (76 kg on 12/26/22, BMI 30.6 ) Est kcal as per MSJ: 1475 (40% carb, 30% fat/prot) Est fluid needs: 2175 ml/d (25 ml/kg bw) Rec fiber: increase to 8-10 g per day and gradually increase to 25 g/d or as tolerated Rec Na: < 2000 mg /d Educate patient on: (R= Reviewed, V = verbalizes understanding N/R= Needs review N/A= not applicable) Food sources of carbohydrates and serving adequate serving sizes : R Difference between complex carbohydrates and simple carbohydrates, role of fiber: R Differences between fats (MUFA/PUFA/saturated fats, trans fats) and food sources of various fats: R Food sources of sodium and salt and healthy modifications for heart health and kidney health: R Vitamins and minerals: R How to interpret food labels: V Healthy Plate method concept: R V Physical activity: benefits and precaution: R Patient Instructions: Walk 10 minutes daily and gradually increase to 30 as tolerated Remove skins from meat/chicken, ask for gravies/sauces on the side when eating at restaurants working on reducing on fat intake Coding Level of Care Code Nutr Indiv Subseq (86601) Diagnoses Obesity (BMI 30-39.9) E66.9 Time Spent (min) 20
== END 2023-03-12 11:27 | disposition home or self-care (01) ==
PROVIDERS: PCP Internal Medicine; Visit Provider Dietitian, Registered
DX: E66.9 Obesity, unspecified (principal)

== ENCOUNTER → 2023-03-12 10:28 | Outpatient (BNVA) | payer MEDICARE, MEDICAID, SELFPAY | PROVIDERS: Visit Provider Dietitian, Registered | DX: E66.9 Obesity, unspecified (principal); Z68.30 Body mass index [BMI] 30.0-30.9, adult; Z71.3 Dietary counseling and surveillance | CPT/HCPCS: 97803 ==

== ENCOUNTER 2023-03-25 10:07 | Outpatient (AMB) | payer MEDICARE, MEDICAID, SELFPAY ==
--- NOTE | 2023-03-25 10:08 | A.OFFVIS_ITS ---
Intake Vital Signs 03/25/23 10:09 Height 5 ft 2 in Weight 161 lb BMI 29.4 BP 145/75 H Blood Pressure Location Rt brachial Position Sitting Pulse 83 Intake Visit Reasons: DCIS, 6 month follow up Intake Note: This patient presents for a six month follow-up assessment for DCIS. Patient c/o; reports tenderness on the right breast. 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 She had finished radiation treatment last Nov, 2022. She says she is seeing Dr. Drummond of Oncology. 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 She says she feels well overall. She denies any palpable breast masses or new nipple or skin changes. Her only complaint is that she had a sunburn on her face from last week as she is very sensitive to the sun. [facility] Medical History (Updated 02/04/23 @ 16:14 by Alex Davis MD) Adult general medical exam Bipolar disorder Breast calcification, right Breast cancer screening by mammogram Breast density DCIS (ductal carcinoma in situ) 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/22) Hypercholesterolemia Hypertension Intraductal papilloma of right breast Obesity (BMI 30-39.9) Post-menopausal Splenic lesion Thyroid nodule Surgical History H/O colonoscopy H/O varicose vein stripping History of left breast biopsy History of removal of retained hardware History of surgery History of vaginal hysterectomy Family History Father Hypertension Mother Cancer Social History Household Members: None Housing: Apartment Alcohol intake: former Patient Tobacco Use Status: Former Tobacco user Tobacco use type: Cigarette e-Cigarette/Vaping Use: Never Used Second Hand Smoke Exposure: No service: No Current occupational status: retired Cognitive needs: No Hearing needs: No Vision needs: Yes Review of Systems Const Denies chills and Denies fever(s) Card Denies chest pain, Denies dyspnea and Denies dyspnea on exertion Resp Denies cough, Denies dyspnea and Denies dyspnea on exertion GI Denies hematochezia and Denies change in bowel habits Denies hematuria Musc Denies back pain and Denies limited range of motion Neuro Denies focal weakness and Denies convulsions Psych Denies depression and Denies mood swings Physical Exam Vital Signs: Last Vital Signs Pulse 83 03/25/23 10:09 BP 145/75 H 03/25/23 10:09 BMI result Body Mass Index 29.4 Const General: comfortable and no acute distress Orientation/consciousness: patient oriented x3 Neck Neck: Yes no lymphadenopathy Chest Other: No palpable breast masses, no nipple or skin changes, no axillary lymphadenopathy on both breasts Resp Auscultation: clear to auscultation bilaterally Cardio Rhythm: regular rhythm GI Palpation (GI): Soft to palpation, nontender and no guarding Neuro General: patient oriented x3 Assessment & Plan Assessment & Plan (1) DCIS (ductal carcinoma in situ): Comment: Right breast Augustuctal carcinoma in situ, nuclear grade 2-3, cribriform and comedo patterns, with central necrosis and focal calcifications, extending into lobules. Code(s): D05.10 - Intraductal carcinoma in situ of unspecified breast Plan: She had DCIS on lumpectomy last August,. She has completed her radiation treatment to the right breast. She is currently on letrozole her home on positive tumor. Current exam does not reveal any palpable breast masses or any axillary lymphadenopathy. She is to continue with her yearly screening mammograms. She also has to follow-up with Dr. Drummond of Oncology. I will see her in the office after her next mammogram which will be in July,. Coding Level of Care Code Est Pt Level 3 (23168) Diagnoses DCIS (ductal carcinoma in situ) D05.10
[2023-03-25 10:09] VITALS: BP 145/75; PULSE 83; BMI 29.4
== END 2023-03-25 10:26 | disposition home or self-care (01) ==
PROVIDERS: PCP Internal Medicine; Visit Provider Surgery
DX: D05.10 Intraductal carcinoma in situ of unspecified breast (principal)
CPT/HCPCS: 99213

== ENCOUNTER → 2023-03-25 10:07 | Outpatient (BNVA) | payer MEDICARE, MEDICAID, SELFPAY | PROVIDERS: PCP Internal Medicine; Visit Provider Surgery | DX: D05.11 Intraductal carcinoma in situ of right breast (principal); Z79.811 Long term (current) use of aromatase inhibitors; Z92.3 Personal history of irradiation | CPT/HCPCS: 99212 ==

== ENCOUNTER 2023-05-10 12:57 | Outpatient (AMB) | payer MEDICARE, MEDICAID, SELFPAY ==
[2023-05-10 12:59] VITALS: BP 128/78; PULSE 81; O2SAT 96; BMI 29.6
--- NOTE | 2023-05-10 12:59 | MHC.PC.OV ---
Vital Signs 05/10/23 12:59 Height 5 ft 2 in Weight 162 lb BMI 29.6 BP 128/78 Blood Pressure Location Lt brachial Position Sitting Pulse 81 Pulse Source Pulse Oximeter Pulse Oximetry (%) 96 Oxygen Delivery Method Room Air Intake Visit Reasons: 3mth f/u Allergies amoxicillin [Augmentin] Allergy (Unknown, Verified 05/10/23 13:00) Unknown clavulanic acid [Augmentin] Allergy (Unknown, Verified 05/10/23 13:00) unknown Medication List - Last Reconciled 05/10/23 by Alex Davis MD alendronate (Fosamax) 70 mg PO QWEEK aripiprazole (Abilify) take with 20 mg = 25 mg Shanta [place] ascorbic acid (vitamin C) 250 mg PO DAILY calcium carbonate-vitamin D2 500-125 mg-unit 1 tab PO DAILY docusate sodium (Stool Softener) 100 mg PO DAILY letrozole 2.5 mg PO DAILY lisinopril 20 mg PO DAILY multivitamin 1 tab PO DAILY Tobacco use date assessed: 02/04/23 Fall risk assessment: No Falls in past year Last assessed Fall Risk: 05/10/23 Dental Screening Dental Screen Date: 05/10/23 Did you have a dental visit in the last 12 months?: Yes Did you have a dental problem in the last 6 months where you did not have access to dental care?: No Was dental information given to patient?: Patient has dentist HPI 3mth f/u HPI Details 72-year-old overweight female with bipolar disorder breast cancer hypertension hypercholesterolemia and osteopenia last seen in 02/04/2023. Patient is up-to-date with mammogram as well as bone density but due for Cologuard. Breast cancer August 2022 excisional biopsy done right breast lumpectomy August 2022 patient started on adjuvant radiation October 2022 and letrozole November 2022 as for osteopenia on Fosamax [facility] Medical History (Updated 05/10/23 @ 13:15 by Alex Davis MD) DCIS (ductal carcinoma in situ) 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 Breast calcification, right Adult general medical exam Post-menopausal Breast cancer screening by mammogram Thyroid nodule Hypertension Bipolar disorder Obesity (BMI 30-39.9) Splenic lesion Hypercholesterolemia Breast density Surgical History H/O colonoscopy H/O varicose vein stripping History of left breast biopsy History of removal of retained hardware History of surgery History of vaginal hysterectomy Family History Father Hypertension Mother Cancer Social History Household Members: None Housing: Apartment Alcohol intake: former Patient Tobacco Use Status: Former Tobacco user Tobacco use type: Cigarette e-Cigarette/Vaping Use: Never Used Second Hand Smoke Exposure: No service: No Current occupational status: retired Cognitive needs: No Hearing needs: No Vision needs: Yes Questionnaire PHQ-9 Over the last 2 weeks, how often have you been bothered by any of the following problems? 1. Little interest or pleasure in doing things: not at all 2. Feeling down, depressed, or hopeless: not at all 3. Trouble falling or staying asleep, or sleeping too much: not at all 4. Feeling tired or having little energy: not at all 5. Poor appetite or overeating: not at all 6. Feeling bad about yourself - or that you are a failure or have let yourself or your family down: not at all 7. Trouble concentrating on things, such as reading the newspaper or watching television: not at all 8. Moving or speaking so slowly that other people could have noticed. Or the opposite - being so fidgety or restless that you have been moving around a lot more than usual: not at all 9. Thoughts that you would be better off or of hurting yourself in some way: not at all Total score: 0 Depression Screening Interpretation: Negative Depression Screening Done: Yes Source: Developed by Drs. Amadou Baxter, Joanie Palacio, Ty Thomas and colleagues, with an educational jody from [employer]. Thrive Questionnaire Date Thrive assessed: 02/04/23 AUDIT C Alcohol Use Questionnaire (AUDIT-C) 1. How often do you have a drink containing alcohol?: Never 3. How often do you have six or more drinks on one occasion?: Never Total Score: 0 KRISSY-7 AMB Questionnaire KRISSY-7 Date KRISSY - 7 assessed: 02/04/23 Source: Developed by Drs. Amadou Baxter, Joanie Palacio, Ty Thomas and colleagues, with an educational jody from [employer]. Physical exam (Primary Care) Vital Signs: Last Vital Signs Pulse 81 05/10/23 12:59 BP 128/78 05/10/23 12:59 Pulse Ox 96 05/10/23 12:59 Oxygen Delivery Method Room Air 05/10/23 12:59 BMI result Body Mass Index 29.6 Tobacco/Smoking Status: Tobacco use Status Tobacco use date assessed 02/04/23 05/10/23 13:05 Patient Tobacco Use Status Former Tobacco user 05/10/23 13:05 Tobacco use type Cigarette 05/10/23 13:05 e-Cigarette/Vaping Use Never Used 05/10/23 13:05 PHQ-9: PHQ-9 Score PHQ-9: Total score 0 05/10/23 13:05 Depression Screening Interpretation: Negative Thrive Assessment: Date of Thrive Assessment Date Thrive assessed 02/04/23 05/10/23 13:05 Const General: alert; No acute distress Eyes Conjunctivae: conjunctivae normal Resp Auscultation: clear to auscultation bilaterally Cardio Rate: regular rate Rhythm: regular rhythm GI Inspection: Yes normal to inspection Extrem General: Yes normal to inspection and No edema Assessment and Plan Assessment & Plan (1) DCIS (ductal carcinoma in situ): Comment: Right breast Augustuctal carcinoma in situ, nuclear grade 2-3, cribriform and comedo patterns, with central necrosis and focal calcifications, extending into lobules. Code(s): D05.10 - Intraductal carcinoma in situ of unspecified breast Plan: Patient is being followed by Hematology-Oncology on letrozole (2) Hypertension: Code(s): I10 - Essential (primary) hypertension Qualifiers: Hypertension type: essential hypertension Qualified Code(s): I10 - Essential (primary) hypertension Plan: Continue with blood pressure medication. Decrease salt intake and exercise patient is taking lisinopril 20 mg once a day (3) Overweight (BMI 25.0-29.9): Code(s): E66.3 - Overweight Plan: Continue with diet and exercise (4) Hypercholesterolemia: Code(s): E78.00 - Pure hypercholesterolemia, unspecified Plan: Avoid fried foods, chicken skin, eggs, butter margarine, pastries and meat. Be it pork or beef they have a lot of cholesterol LDL goal of less than 130 and triglyceride of less than 150. (5) Bipolar disorder: Comment: SHANTA [place] Code(s): F31.9 - Bipolar disorder, unspecified Qualifiers: Active/Remission status: currently active Current bipolar episode type: mixed Current episode severity: moderate Qualified Code(s): F31.62 - Bipolar disorder, current episode mixed, moderate Plan: Continue with counseling and therapy on Abilify (6) Colon cancer screening: Code(s): Z12.11 - Encounter for screening for malignant neoplasm of colon Plan: Reminded about Cologuard (7) Osteopenia: Comment: 09/19 Code(s): M85.80 - Other specified disorders of bone density and structure, unspecified site Medications: New ascorbic acid (vitamin C) 250 mg PO DAILY 30 tabs 0RF Coding Level of Care Code Est Pt Level 4 (58596) Diagnoses DCIS (ductal carcinoma in situ) D05.10 Essential hypertension I10 Hypertension type: essential hypertension Overweight (BMI 25.0-29.9) E66.3 Hypercholesterolemia E78.00 Bipolar disorder, current episode mixed, moderate F31.62 Active/Remission status: currently active Current bipolar episode type: mixed Current episode severity: moderate Colon cancer screening Z12.11 Osteopenia M85.80
== END 2023-05-10 13:31 | disposition home or self-care (01) ==
PROVIDERS: PCP Internal Medicine; Visit Provider Internal Medicine
DX: D05.10 Intraductal carcinoma in situ of unspecified breast (principal); I10 Essential (primary) hypertension; F31.62 Bipolar disorder, current episode mixed, moderate; M85.80 Other specified disorders of bone density and structure, unspecified site
CPT/HCPCS: 99214

== ENCOUNTER 2023-08-16 10:41 | Outpatient (AMB) | payer MEDICARE, MEDICAID, SELFPAY ==
[2023-08-16 10:56] VITALS: BP 140/88; PULSE 69; RESP 17; O2SAT 96
--- NOTE | 2023-08-16 10:56 | A.OFFPC_ITS ---
Vital Signs 08/16/23 10:56 Height 5 ft 2 in Weight 164 lb BMI 30.0 Intake Visit Reasons: SWV G0439 Allergies amoxicillin [Augmentin] Allergy (Unknown, Verified 08/13/23 10:39) Unknown clavulanic acid [Augmentin] Allergy (Unknown, Verified 08/13/23 10:39) unknown Tobacco use date assessed: 02/04/23 [facility] Medical History (Updated 08/13/23 @ 10:36 by Tigist Drummond MD) DCIS (ductal carcinoma in situ) 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 Breast calcification, right Adult general medical exam Post-menopausal Breast cancer screening by mammogram Thyroid nodule Hypertension Bipolar disorder Obesity (BMI 30-39.9) Splenic lesion Hypercholesterolemia Breast density Surgical History H/O colonoscopy H/O varicose vein stripping History of left breast biopsy History of removal of retained hardware History of surgery History of vaginal hysterectomy Family History Father Hypertension Mother Cancer Social History Household Members: None Housing: Apartment Alcohol intake: former Patient Tobacco Use Status: Former Tobacco user Tobacco use type: Cigarette e-Cigarette/Vaping Use: Never Used Second Hand Smoke Exposure: No service: No Current occupational status: retired Cognitive needs: No Hearing needs: No Vision needs: Yes Questionnaire Thrive Questionnaire Date Thrive assessed: 02/04/23 KRISSY-7 AMB Questionnaire KRISSY-7 Date KRISSY - 7 assessed: 02/04/23 Source: Developed by Drs. Amadou Baxter, Joanie Palacio, Ty Thomas and colleagues, with an educational jody from [employer]. Physical exam (Primary Care) Tobacco/Smoking Status: Tobacco use Status Tobacco use date assessed 02/04/23 05/10/23 13:05 Patient Tobacco Use Status Former Tobacco user 05/10/23 13:05 Tobacco use type Cigarette 05/10/23 13:05 e-Cigarette/Vaping Use Never Used 05/10/23 13:05 Thrive Assessment: Date of Thrive Assessment Date Thrive assessed 02/04/23 05/10/23 13:05 Coding
--- NOTE | 2023-08-16 11:03 | A.OFFVIS_ITS ---
Intake Vital Signs 08/16/23 10:56 Height 5 ft 2 in Weight 164 lb BMI 30.0 BP 140/88 H Blood Pressure Location Lt brachial Position Sitting Respiration 17 Pulse 69 Pulse Source Pulse Oximeter Pulse Oximetry (%) 96 Oxygen Delivery Method Room Air Intake Visit Reasons: SWV G0439 Intake Note: Patient is here for an Annual Wellness Visit. 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 Accompanied by: Self / Same As Patient Allergies amoxicillin [Augmentin] Allergy (Unknown, Verified 08/16/23 11:06) Unknown clavulanic acid [Augmentin] Allergy (Unknown, Verified 08/16/23 11:06) unknown Medication List - Last Reconciled 08/16/23 by Alex Davis MD alendronate (Fosamax) 70 mg PO QWEEK aripiprazole (Abilify) take with 20 mg = 25 mg Shanta [place] ascorbic acid (vitamin C) 250 mg PO DAILY calcium carbonate-vitamin D2 500-125 mg-unit 1 tab PO DAILY docusate sodium (Stool Softener) 100 mg PO DAILY letrozole 2.5 mg PO DAILY lisinopril 20 mg PO DAILY multivitamin 1 tab PO DAILY HPI SWV G0439 HPI Details 72-year-old obese female with history of breast cancer hypertension hypercholesterolemia bipolar disorder coming in for annual well visit last seen in April 2023. Patient is mammogram is up-to-date July 2022 due this month, bone density is up-to-date due in September and colonoscopy Cologuard negative June 2020 and now August 17-. Patient follows up with Hematology-Oncology breast cancer right 2022 right breast lumpectomy August 2022 letrozole radiation therapy. Mammo and US R breast next week and will see surgeon [facility] Medical History (Updated 08/16/23 @ 19:05 by Alex Davis MD) DCIS (ductal carcinoma in situ) 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 Breast calcification, right Adult general medical exam Post-menopausal Breast cancer screening by mammogram Thyroid nodule Hypertension Bipolar disorder Obesity (BMI 30-39.9) Splenic lesion Hypercholesterolemia Breast density Surgical History H/O colonoscopy History of surgery History of removal of retained hardware History of left breast biopsy History of vaginal hysterectomy H/O varicose vein stripping Family History Father Hypertension Mother Cancer Social History (Updated 08/16/23 @ 11:54 by Alex Davis MD) Household Members: None Housing: Apartment Alcohol intake: former Comment: once Q 6 months beer Patient Tobacco Use Status: Former Tobacco user Tobacco use type: Cigarette Years Smoked: years ago stopped e-Cigarette/Vaping Use: Never Used Second Hand Smoke Exposure: No service: No Current occupational status: retired Cognitive needs: No Hearing needs: No Vision needs: Yes Questionnaire Medicare Wellness Checkup [age] What gender do you identify with?: female During the past 4 weeks, how much have you been bothered by emotional problems such as feeling anxious, depressed, irritable, sad or downhearted, and blue?: not at all During the past 4 weeks, has your physical & emotional health limited your social activities with family, friends, neighbors, or groups?: not at all During the past 4 weeks, how much bodily pain have you generally had?: no pain During the past 4 weeks, was someone available to help you if you needed & wanted help?: no, not at all During the past 4 weeks, what was the hardest physical activity you could do for at least 2 minutes?: very light Can you get to places out of walking distance without help? (For eg., can you travel alone on buses, taxis or drive your car?): Yes Can you go shopping for groceries or clothes without someone's help?: Yes Can you prepare your own meals?: Yes Can you do your housework without help?: Yes Because of any health problems, do you need the help of another person with your personal care needs such as eating, bathing, dressing or getting around the house?: No Can you handle your own money without help?: Yes During the past 4 weeks, how would you rate your health in general?: very good During the past 4 weeks how have things been going for you?: very well; could hardly better Are you having difficulties driving your car?: not applicable, I don't use a car Do you always fasten your seat belt when you are in a car?: yes, usually During past 4 weeks, have you been bothered by the following: never: Falling or dizzy when standing up, Sexual problems?, Trouble eating well?, Teeth or denture problems?, Problems using the telephone? and Tiredness or fatigue? Have you fallen 2 or more times in the past year?: No Are you afraid of falling?: Yes Are you a smoker?: no During the past 4 weeks, how many drinks of wine, beer, or other alcoholic beverages did you have?: no alcohol at all Do you exercise for about 20 minutes 3 or more times a week?: yes, most of the time Have you been given information to help with the following?: no: Hazards in your house that might hurt you? and no: Keeping track of your medications? How often do you have trouble taking medicines the way you have been told to take them?: I always take medicine as prescribed How confident are you that you can control & manage most of your health problems?: very confident What is your race?: White PHQ-9 Over the last 2 weeks, how often have you been bothered by any of the following problems? 1. Little interest or pleasure in doing things: not at all 2. Feeling down, depressed, or hopeless: not at all 3. Trouble falling or staying asleep, or sleeping too much: not at all 4. Feeling tired or having little energy: not at all 5. Poor appetite or overeating: not at all 6. Feeling bad about yourself - or that you are a failure or have let yourself or your family down: not at all 7. Trouble concentrating on things, such as reading the newspaper or watching television: not at all 8. Moving or speaking so slowly that other people could have noticed. Or the opposite - being so fidgety or restless that you have been moving around a lot more than usual: not at all 9. Thoughts that you would be better off or of hurting yourself in some way: not at all Total score: 0 Depression Screening Interpretation: Negative Depression Screening Done: Yes 27242 - PHQ-9 Billing: Yes Source: Developed by Drs. Amadou Baxter, Joanie Palacio, Ty Thomas and colleagues, with an educational jody from [employer]. Thrive Questionnaire Date Thrive assessed: 08/16/23 I am a: Patient What is your living situation today?: I have a steady place to live Within the past 12 months, did the food you bought not last and you didn't have the money to get more?: Never true Within the past 12 months, did you worry whether your food would run out before you got money to buy more?: Never true Do you have trouble paying for medicines?: No Do you have trouble getting transportation to medical appointments?: No Do you have trouble paying your heating and electricity bill?: No Do you have trouble taking care of your child, family member or friend?: No Do you have trouble with day-to-day activities such as bathing, preparing meals, shopping, managing finances, etc.?: No Are you currently unemployed and looking for a job?: No Are you interested in more education?: No Please select the resources that you would like help with: None Currently or been in a relationship where the following occur: no concerns reported THRIVE Score: 0 Review of Systems Const Denies poor appetite and Denies weakness Eyes Denies no additional complaints ENT Reports Normal hearing present, Denies dizziness, Denies nasal congestion, Denies tinnitus and Denies sore throat Card Denies chest pain, Denies syncope, Denies rapid heart rate and Denies dyspnea Resp Denies cough and Denies dyspnea GI Denies change in stool character, Reports constipation, Denies diarrhea, Denies nausea and Denies vomiting Denies urinary frequency, Denies difficulty voiding and Denies dysuria Neuro Reports Normal hearing present, Denies confusion, Denies dizziness, Denies syncope and Denies weakness Psych Denies confusion Physical Exam Vital Signs: Last Vital Signs Pulse 69 08/16/23 10:56 Resp 17 08/16/23 10:56 BP 140/88 H 08/16/23 10:56 Pulse Ox 96 08/16/23 10:56 Oxygen Delivery Method Room Air 08/16/23 10:56 BMI result Body Mass Index 30.0 Const General: No confusion Orientation/consciousness: No confusion HEENT Head: Yes normocephalic Ears: external ears normal and TM's normal bilaterally Face and sinus: Yes normal facial exam Mouth: moist mucous membranes Throat: Yes tonsils normal Eyes Conjunctivae: conjunctivae normal Pupils: Equal, round and reactive pupils present and Pupil accommodation reflex normal Direct Ophthalmoscopy: normal light reflex Neck Neck: No lymphadenopathy Thyroid: Thyroid normal Chest Chest palpation & inspection: normal inspection of the chest Resp Effort & Inspection: normal respiratory effort and no audible wheezes Auscultation: clear to auscultation bilaterally, no crackles, no wheezes and lung sounds not diminished Cardio Rate: regular rate Rhythm: regular rhythm Peripheral pulses: radial pulses present and dorsalis pedis present GI Palpation (GI): no masses Auscultation: normal bowel sounds and normoactive bowel sounds Rectal Exam - Female: deferred Skin General skin exam: no rashes or lesions noted Rashes: no rashes Neuro General: No confusion Cranial nerves: Yes Equal, round and reactive pupils present and Yes Normal hearing present Cognition (Neuro): normal cognition Gait exam (Neuro): Normal gait present Motor exam (neuro): 5/5 motor strength present throughout Deep tendon reflexes (DTR's): Right brachioradialis reflex intensity grade: 2+, Left brachioradialis reflex intensity grade: 2+, Right patellar reflex intensity grade: 2+ and Left patellar reflex intensity grade: 2+ Extrem General: No edema Assessment & Plan Assessment & Plan (1) Medicare annual wellness visit, subsequent: Code(s): Z00.00 - Encounter for general adult medical examination without abnormal findings Plan: Eat healthy, keep well hydrated and keep active (2) Obesity (BMI 30-39.9): Code(s): E66.9 - Obesity, unspecified Plan: Diet and exercise (3) Osteopenia: Comment: 09/19 Code(s): M85.80 - Other specified disorders of bone density and structure, unspecified site Qualifiers: Osteopenia location: unspecified Qualified Code(s): M85.80 - Other specified disorders of bone density and structure, unspecified site Plan: Reminded about bone density (4) DCIS (ductal carcinoma in situ): Comment: Right breast Augustuctal carcinoma in situ, nuclear grade 2-3, cribriform and comedo patterns, with central necrosis and focal calcifications, extending into lobules. Code(s): D05.10 - Intraductal carcinoma in situ of unspecified breast Qualifiers: Laterality: right Qualified Code(s): D05.11 - Intraductal carcinoma in situ of right breast Plan: Patient follows up with Hematology-Oncology (5) Hypertension: Code(s): I10 - Essential (primary) hypertension Qualifiers: Hypertension type: essential hypertension Qualified Code(s): I10 - Essential (primary) hypertension Plan: Continue with blood pressure medication. Decrease salt intake and exercise on lisinopril 20 mg once a day (6) Bipolar disorder: Comment: SHANTA BLA[place] Code(s): F31.9 - Bipolar disorder, unspecified Qualifiers: Active/Remission status: currently active Current bipolar episode type: mixed Current episode severity: moderate Qualified Code(s): F31.62 - Bipolar disorder, current episode mixed, moderate Plan: Continue with counseling and therapy (7) Hypercholesterolemia: Code(s): E78.00 - Pure hypercholesterolemia, unspecified Plan: Avoid fried foods, chicken skin, eggs, butter margarine, pastries and meat. Be it pork or beef they have a lot of cholesterol LDL goal of less than 130 and triglyceride of less than 150 (8) Impacted cerumen of both ears: Code(s): H61.23 - Impacted cerumen, bilateral Plan: will schedule for irrigation Orders: Orders XR DEXA axial skeleton 1 Month M81.0 - Age-related osteoporosis without current pathological fracture, M85.80 - Other specified disorders of bone density and structure, unspecified site Quality Reporting (2019) Depression/Bipolar (159/160/161/177) PHQ-9: Total score: 0 Coding Level of Care Code Medicare Subsequent (G0439) Diagnoses Medicare annual wellness visit, subsequent Z00.00 Obesity (BMI 30-39.9) E66.9 Osteopenia, unspecified location M85.80 Osteopenia location: unspecified Ductal carcinoma in situ (DCIS) of right breast D05.11 Laterality: right Essential hypertension I10 Hypertension type: essential hypertension Bipolar disorder, current episode mixed, moderate F31.62 Active/Remission status: currently active Current bipolar episode type: mixed Current episode severity: moderate Hypercholesterolemia E78.00 Impacted cerumen of both ears H61.23
== END 2023-08-16 12:08 | disposition home or self-care (01) ==
PROVIDERS: PCP Internal Medicine; Visit Provider Internal Medicine
DX: Z00.00 Encounter for general adult medical examination without abnormal findings (principal); F31.62 Bipolar disorder, current episode mixed, moderate; E66.9 Obesity, unspecified; Z68.30 Body mass index [BMI] 30.0-30.9, adult; M85.80 Other specified disorders of bone density and structure, unspecified site; D05.11 Intraductal carcinoma in situ of right breast; I10 Essential (primary) hypertension; E78.00 Pure hypercholesterolemia, unspecified; H61.23 Impacted cerumen, bilateral
CPT/HCPCS: G0439

== ENCOUNTER 2023-08-20 10:23 | Outpatient (REF) | payer MEDICARE, MEDICAID, SELFPAY ==
--- NOTE | ~2023-08-20 | MM_ITS ---
EXAMINATION: MM DIAGNOSTIC DIGITAL BREAST TOMOSYNTHESIS, BILATERAL US BREAST LIMITED, RIGHT MAMMOGRAPHY: CLINICAL INFORMATION: Periareolar right breast lump in the setting of a history of prior breast cancer treated in early 2022. COMPARISON: Mammography: This study is compared with prior mammograms dating back to 2018. TECHNIQUE: Digital breast tomosynthesis is performed in both the craniocaudal and mediolateral oblique views along with computer-aided detection (CAD). Synthesized 2D images are generated from the tomosynthesis. FINDINGS: There are scattered areas of fibroglandular density (ACR BI-RADS breast composition Category b). There are no significant masses, abnormal calcifications, or other abnormalities. There are postsurgical changes in the superior aspect of the right breast from prior breast cancer treatment. Few benign calcifications are present in the right breast. There are no mammographic signs of malignancy in either breast at the current time. ULTRASOUND: CLINICAL INFORMATION: Periareolar right breast lump COMPARISON: None TECHNIQUE: Targeted sonographic evaluation was performed using a high frequency linear transducer. Selected archived documentation. FINDINGS: RIGHT BREAST: The patient's palpable lump is located at the 12:00 position 3 cm from the nipple. In this location, there is postsurgical change. This has the appearance of a antoine scar. There are no suspicious features by ultrasound. MM/MM tomosynthesis diagnostic BI IMPRESSION: No mammographic evidence of malignancy. Palpable lump in the right breast corresponds to the patient's surgical bed. Clinical follow-up is advised. OVERALL ASSESSMENT: Mammography: BI-RADS 2 - Benign Findings Ultrasound: BI-RADS 2 - Benign Findings RECOMMENDATION: 1. Patient should be managed based on the clinical impression. 2. Otherwise, routine annual screening mammography. Results were provided to the patient at time of visit by the technologist. This patient's information was entered into a reminder system with a target due date for their next mammogram.
== END 2023-08-20 10:24 | disposition home or self-care (01) ==
LOC: HO.MAMMO 10:23
PROVIDERS: PCP Internal Medicine; Visit Provider Internal Medicine
DX: Z85.3 Personal history of malignant neoplasm of breast (principal); Z98.890 Other specified postprocedural states
CPT/HCPCS: 76642; 77062; 77066

== ENCOUNTER → 2023-08-20 10:30 | Outpatient (BNV) | payer MEDICARE, MEDICAID, SELFPAY | PROVIDERS: PCP Internal Medicine; Visit Provider Radiology Diagnostic Radiology | DX: N63.15 Unspecified lump in the right breast, overlapping quadrants (principal); Z85.3 Personal history of malignant neoplasm of breast | CPT/HCPCS: 76642; 77062; 77066 ==

== ENCOUNTER 2023-08-22 10:01 | Outpatient (AMB) | payer MEDICARE, MEDICAID, SELFPAY ==
--- NOTE | 2023-08-22 10:14 | A.OFFVIS_ITS ---
Intake Intake Visit Reasons: DCIS, 6 month follow up Intake Note: This patient presents for a six month follow-up breast examination assessment. Patient c/o; reports having DI which reflected scare tissue, reports no other breast complaints at this time. Superintendent Transportation Required: No Accompanied by: Self / Same As Patient Allergies amoxicillin [Augmentin] Allergy (Unknown, Verified 08/22/23 10:18) Unknown clavulanic acid [Augmentin] Allergy (Unknown, Verified 08/22/23 10:18) unknown Medication List - Last Reconciled 08/22/23 by Galdino Porter MD alendronate (Fosamax) 70 mg PO QWEEK aripiprazole (Abilify) take with 20 mg = 25 mg Shanta Taz aripiprazole 20 mg PO BEDTIME PRN ascorbic acid (vitamin C) 250 mg PO DAILY calcium carbonate-vitamin D2 500-125 mg-unit 1 tab PO DAILY docusate sodium (Stool Softener) 100 mg PO DAILY letrozole 2.5 mg PO DAILY lisinopril 20 mg PO DAILY multivitamin 1 tab PO DAILY HPI DCIS, 6 month follow up HPI Details She had undergone lumpectomy last August, was noted to have DCIS on final pathology. She had finished radiation treatment last Nov, 2022. She says she is seeing Dr. Drummond of Oncology. 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 She says she feels well overall. She denies any palpable breast masses or new nipple or skin changes. 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 Breast calcification, right Adult general medical exam Post-menopausal Breast cancer screening by mammogram Thyroid nodule Hypertension Bipolar disorder Obesity (BMI 30-39.9) Splenic lesion Hypercholesterolemia Breast density Surgical History H/O colonoscopy History of surgery History of removal of retained hardware History of left breast biopsy History of vaginal hysterectomy H/O varicose vein stripping Family History Father Hypertension Mother Cancer Social History Household Members: None Housing: Apartment Alcohol intake: former Comment: once Q 6 months beer Patient Tobacco Use Status: Former Tobacco user Tobacco use type: Cigarette Years Smoked: years ago stopped e-Cigarette/Vaping Use: Never Used Second Hand Smoke Exposure: No service: No Current occupational status: retired Cognitive needs: No Hearing needs: No Vision needs: Yes Review of Systems Const Denies chills and Denies fever(s) Card Denies chest pain, Denies dyspnea and Denies dyspnea on exertion Resp Denies cough, Denies dyspnea and Denies dyspnea on exertion GI Denies hematochezia and Denies change in bowel habits Denies hematuria Musc Denies back pain and Denies limited range of motion Neuro Denies focal weakness and Denies convulsions Psych Denies depression and Denies mood swings Physical Exam Const General: comfortable and no acute distress Orientation/consciousness: patient oriented x3 Neck Neck: Yes no lymphadenopathy Chest Other: No palpable breast masses, nipple or skin changes, no axillary lymphadenopathy Resp Auscultation: clear to auscultation bilaterally Cardio Rhythm: regular rhythm GI Palpation (GI): Soft to palpation, nontender and no guarding Neuro General: patient oriented x3 Assessment & Plan Assessment & Plan (1) History of ductal carcinoma in situ (DCIS) of breast: Code(s): Z86.000 - Personal history of in-situ neoplasm of breast Plan: I have her reviewed her mammogram from 2 days ago and this does not suggest any recurrence or any masses. I emphasized to her the importance of regular screening mammograms She remains on hormonal treatment for her DCIS She is to follow-up as well with her oncologist. Current exam does not reveal any palpable breast mass or any axillary lymphadenopathy. I will see her in the office in about 6 weeks. Coding Level of Care Code Est Pt Level 3 (69483) Diagnoses History of ductal carcinoma in situ (DCIS) of breast Z86.000
== END 2023-08-22 10:29 | disposition home or self-care (01) ==
PROVIDERS: PCP Internal Medicine; Visit Provider Surgery
DX: Z86.000 Personal history of in-situ neoplasm of breast (principal)
CPT/HCPCS: 99213

== ENCOUNTER → 2023-08-22 10:01 | Outpatient (BNVA) | payer MEDICARE, MEDICAID, SELFPAY | PROVIDERS: PCP Internal Medicine; Visit Provider Surgery | DX: D05.11 Intraductal carcinoma in situ of right breast (principal); Z79.890 Hormone replacement therapy; Z98.890 Other specified postprocedural states | CPT/HCPCS: 99212 ==

== ENCOUNTER 2023-09-06 10:47 | Outpatient (AMB) | payer MEDICARE, MEDICAID, SELFPAY ==
--- NOTE | 2023-09-06 10:54 | MHC.PC.OV ---
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 Breast calcification, right Adult general medical exam Post-menopausal Breast cancer screening by mammogram Thyroid nodule Hypertension Bipolar disorder Obesity (BMI 30-39.9) Splenic lesion Hypercholesterolemia Breast density Surgical History H/O colonoscopy History of surgery History of removal of retained hardware History of left breast biopsy History of vaginal hysterectomy H/O varicose vein stripping Family History Father Hypertension Mother Cancer Social History Household Members: None Housing: Apartment Alcohol intake: former Comment: once Q 6 months beer Patient Tobacco Use Status: Former Tobacco user Tobacco use type: Cigarette Years Smoked: years ago stopped e-Cigarette/Vaping Use: Never Used Second Hand Smoke Exposure: No service: No Current occupational status: retired Cognitive needs: No Hearing needs: No Vision needs: Yes Questionnaire Thrive Questionnaire Date Thrive assessed: 08/16/23 KRISSY-7 AMB Questionnaire KRISSY-7 Date KRISSY - 7 assessed: 02/04/23 Source: Developed by Drs. Amadou Baxter, Joanie B.W. Ty Palacio and colleagues, with an educational jody from [employer]. Physical exam (Primary Care) Vital Signs: Last Vital Signs Pulse 69 09/06/23 10:57 Resp 16 09/06/23 10:57 BP 148/84 H 09/06/23 10:57 Pulse Ox 97 09/06/23 10:57 Oxygen Delivery Method Room Air 09/06/23 10:57 BMI result Body Mass Index 29.6 Tobacco/Smoking Status: Tobacco use Status Tobacco use date assessed 09/06/23 09/06/23 11:02 Patient Tobacco Use Status Former Tobacco user 09/06/23 10:56 Tobacco use type Cigarette 09/06/23 10:56 e-Cigarette/Vaping Use Never Used 09/06/23 10:56 Thrive Assessment: Date of Thrive Assessment Date Thrive assessed 08/16/23 09/06/23 10:56 Const Other: Bilateral impacted cerumen Office Procedures Cerumen Removal From which ear canal was the cerumen removed: bilateral Removal: irrigation, otoscope w/curette, cerumen loop/spoon and other Notes: patient tolerated procedure well, no complications and ear canal clear [id number] Irrigation/Lavage Assessment and Plan Assessment & Plan (1) Impacted cerumen of both ears: Code(s): H61.23 - Impacted cerumen, bilateral Plan: scoop and irrigation done TM intact (2) Osteopenia: Comment: 09/19 Code(s): M85.80 - Other specified disorders of bone density and structure, unspecified site Qualifiers: Osteopenia location: unspecified Qualified Code(s): M85.80 - Other specified disorders of bone density and structure, unspecified site Orders: Orders XR DEXA axial skeleton Today M81.0 - Age-related osteoporosis without current pathological fracture, M85.80 - Other specified disorders of bone density and structure, unspecified site Coding Level of Care Code Est Pt Level 3 (70197) Diagnoses Impacted cerumen of both ears H61.23 Osteopenia, unspecified location M85.80 Osteopenia location: unspecified CPT Codes Office Procedure - CPT: 80618-Ctx Irrigation/Lavage ([id number])
[2023-09-06 10:57] VITALS: BP 148/84; PULSE 69; RESP 16; O2SAT 97; BMI 29.6
== END 2023-09-06 11:28 | disposition home or self-care (01) ==
PROVIDERS: PCP Internal Medicine; Visit Provider Internal Medicine
DX: H61.23 Impacted cerumen, bilateral (principal); M85.80 Other specified disorders of bone density and structure, unspecified site
CPT/HCPCS: 69209; 99213

== ENCOUNTER 2023-09-17 09:28 | Outpatient (REF) | payer MEDICARE, MEDICAID, SELFPAY ==
--- NOTE | ~2023-09-17 | MM_ITS ---
EXAMINATION: BONE DENSITOMETRY CLINICAL INDICATION: Age-related osteoporosis without current pathological fracture. COMPARISON: Previous BD dated 09/15/2021 and baseline BD dated 04/12/2009. TECHNIQUE: Using a [employer] DXA System (software version: 13.1) manufactured by [employer], dual-energy x-ray absorptiometry was performed of the lumbar spine and left hip. The images are of good technical quality. Summary results are attached. FINDINGS: LEFT FEMUR, NECK: Current: BMD 0.793 g/cm2, Z-score 0.0, T-score -1.8, osteopenia. Prior: BMD 0.763 g/cm2. Baseline: BMD 0.867 g/cm2. LEFT FEMUR, TOTAL: Current: BMD 0.847 g/cm2, Z-score 0.3, T-score -1.3, osteopenia, 1.6% increase from previous, 6.4% decrease from baseline (<5% change is not significant). Prior: BMD 0.834 g/cm2. Baseline: BMD 0.905 g/cm2. AP SPINE L1-L3 (excluding L4): The data of L1-L4 has been changed to exclude the L4 vertebral body, because degenerative sclerosis at this level may cause overestimation of lumbar spine density. Current: BMD 0.964 g/cm2, Z-score -0.2, T-score -1.7, osteopenia, 0.3% increase from previous, 21.3% increase from baseline (<5% change is not significant). Prior: BMD 0.961 g/cm2. Baseline: BMD 0.795 g/cm2. IDENTIFIED RISK FACTORS: Early menopause, secondary osteoporosis, history of fracture (adult), hysterectomy, osteoporosis. HISTORY OF FRACTURE: Humerus/shoulder. MEDICATIONS: Calcium supplements or multivitamin, vitamin D, ERT/SERMS. MM/XR DEXA axial skeleton IMPRESSION: 1. DIAGNOSIS: Osteopenia based on the lowest T-score value of -1.8 in the femoral neck applying World Health Organization criteria. 2. 10-YEAR FRACTURE RISK PREDICTION, FRAX: Not performed in this patient on estrogen or bone building treatments. 3. Treatment Recommendations: NOF guidelines recommend consideration for treatment in postmenopausal women and men age 50 and older presenting with the following: -A hip or vertebral (clinical or morphometric) fracture. -T-score less than or equal to -2.5 at the femoral neck or spine after appropriate evaluation to exclude secondary causes. -Low bone mass at the hip or spine and a 10-year fracture probability by FRAX of greater than or equal to 3% for hip fracture or greater than or equal to 20% for major osteoporotic fracture based on the [place] adapted WHO algorithm. 4. Other Recommendations: All treatment decisions require clinical judgment and consideration of individual patient factors, including patient preferences, comorbidities, previous drug use, risk factors not captured in the FRAX model (e.g. frailty, falls, vitamin D deficiency, increased bone turnover, interval significant decline in bone density) and possible under or overestimation of fracture risk by FRAX. Additional medical evaluation for secondary cause of low bone mineral density may be appropriate. FUTURE SCAN RECOMMENDATION: People with diagnosed cases of osteoporosis or at high risk for fracture should have regular bone mineral density tests. For patients eligible for Medicare, routine testing is allowed once every 2 years. The testing frequency can be increased to one year for patients who have rapidly progressing disease, those who are receiving or discontinuing medical therapy to restore bone mass, or have additional risk factors.
== END 2023-09-17 09:29 | disposition home or self-care (01) ==
LOC: HO.MAMMO 09:28
PROVIDERS: PCP Internal Medicine; Visit Provider Internal Medicine
DX: Z13.820 Encounter for screening for osteoporosis (principal); M85.80 Other specified disorders of bone density and structure, unspecified site; M81.0 Age-related osteoporosis without current pathological fracture; Z78.0 Asymptomatic menopausal state
CPT/HCPCS: 77080

== ENCOUNTER 2023-09-19 09:45 | Outpatient (AMB) | payer MEDICARE, MEDICAID, SELFPAY ==
--- NOTE | 2023-09-19 09:51 | A.OFFVIS_ITS ---
Intake VS Expanded 09/19/23 09:51 Height 5 ft 2 in Weight 164 lb 3.91 oz BMI 30.0 Intake Visit Reasons: Obesity/LVM Allergies amoxicillin [Augmentin] Allergy (Unknown, Verified 09/06/23 11:01) Unknown clavulanic acid [Augmentin] Allergy (Unknown, Verified 09/06/23 11:01) unknown HPI Nutrition Presentation Details Pt presets for MNT follow up for obesity, hyperlipidemia , hypertension Pt reports doing well ,working on choosing low fat foods Reports participating at the [employer], keeping active participating in different activities , not exercise routine B: prunes , cereal, (cheerios/cornflakes) , milk 2%, water L: meatloaf and mashed potato , cream soda D: shrimp and hotsauce/smoke, water and salad or mashed potato physical activity sedentary Fried foods : 0-2 per month pastries: 1-2/d fruits : 0-1/d ve /week Most Recent Diabetes Results: Creatinine 0.85 mg/dL (0.5-1.4) 08/13/23 Blood Urea Nitrogen 15 mg/dL (9-16) 08/13/23 Sodium 140 mmol/L (135-145) 08/13/23 Potassium 4.7 mmol/L (3.3-5.1) 08/13/23 Chloride 103 mmol/L (96-108) 08/13/23 Carbon Dioxide 30 mmol/L (22-29) H 08/13/23 Calcium 9.8 mg/dL (8.4-10.2) 08/13/23 AST 18 U/L (5-31) 08/13/23 ALT 21 U/L (0-31) 08/13/23 Total Protein 7.2 g/dL (6.5-8.0) 08/13/23 Albumin 4.4 g/dL (3.5-5.0) 08/13/23 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 Breast calcification, right Adult general medical exam Post-menopausal Breast cancer screening by mammogram Thyroid nodule Hypertension Bipolar disorder Obesity (BMI 30-39.9) Splenic lesion Hypercholesterolemia Breast density Surgical History H/O colonoscopy History of surgery History of removal of retained hardware History of left breast biopsy History of vaginal hysterectomy H/O varicose vein stripping Family History Father Hypertension Mother Cancer Social History Household Members: None Housing: Apartment Alcohol intake: former Comment: once Q 6 months beer Patient Tobacco Use Status: Former Tobacco user Tobacco use type: Cigarette Years Smoked: years ago stopped e-Cigarette/Vaping Use: Never Used Second Hand Smoke Exposure: No service: No Current occupational status: retired Cognitive needs: No Hearing needs: No Vision needs: Yes Assessment & Plan Assessment & Plan (1) Obesity (BMI 30-39.9): Code(s): E66.9 - Obesity, unspecified Plan: Educate Pt on reducing fats/portions ? Used wt : 87 kg (BMI 31 on 09/2022) (76 kg on 12/26/22, BMI 30.6 ) , 74 kg (08/2023) Est kcal as per MSJ: 1475 (40% carb, 30% fat/prot) Est fluid needs: 2175 ml/d (25 ml/kg bw) Rec fiber: increase to 8-10 g per day and gradually increase to 25 g/d or as tolerated Rec Na: < 2000 mg /d Educate patient on: (R= Reviewed, V = verbalizes understanding N/R= Needs review N/A= not applicable) * Food sources of carbohydrates and serving adequate serving sizes : R * Difference between complex carbohydrates and simple carbohydrates, role of fiber: R * Differences between fats (MUFA/PUFA/saturated fats, trans fats) and food sources of various fats: R * Food sources of sodium and salt and healthy modifications for heart health and kidney health: R * Vitamins and minerals: R * How to interpret food labels: V * Healthy Plate method concept: R V * Physical activity: benefits and precaution: R Patient Instructions: resume exercises, walking 10 minutes daily and increase as tolerated include greens in your diet 3 x a week (spinach, broccoli, green beans, as example in sand, in soup , meat loaf) work on reducing on salt ( do not add salt to the foods- foods prepared already have salt in them , try nutritional yeast as seasoning, see list of low sodium food options) Coding Level of Care Code Nutr Indiv Subseq (34907) Diagnoses Obesity (BMI 30-39.9) E66.9 Time Spent (min) 30
== END 2023-09-19 10:15 | disposition home or self-care (01) ==
PROVIDERS: PCP Internal Medicine; Visit Provider Dietitian, Registered
DX: E66.9 Obesity, unspecified (principal)

== ENCOUNTER → 2023-09-19 09:45 | Outpatient (BNVA) | payer MEDICARE, MEDICAID, SELFPAY | PROVIDERS: PCP Internal Medicine; Visit Provider Dietitian, Registered | DX: E66.9 Obesity, unspecified (principal); Z68.30 Body mass index [BMI] 30.0-30.9, adult | CPT/HCPCS: 97803 ==

== ENCOUNTER 2024-02-20 12:39 | Outpatient (AMB) | payer MEDICARE, MEDICAID, SELFPAY ==
--- NOTE | 2024-02-20 12:40 | A.OFFVIS_ITS ---
Vital Signs 02/20/24 12:47 Height 5 ft 2 in Weight 166 lb BMI 30.4 BP 162/78 H Blood Pressure Location Lt brachial Position Sitting Pulse 84 Intake Visit Reasons: DCIS 6 month follow up Intake Note: Patient is seen in office for 6 month follow up visit, breast exam. 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 Present Accompanied by: Self / Same As Patient Allergies amoxicillin [Augmentin] Allergy (Unknown, Verified 02/20/24 12:41) Unknown clavulanic acid [Augmentin] Allergy (Unknown, Verified 02/20/24 12:41) unknown Medication List - Last Reconciled 02/20/24 by Galdino Porter MD aripiprazole (Abilify) take with 20 mg = 25 mg Shanta Taz aripiprazole 20 mg PO BEDTIME PRN ascorbic acid (vitamin C) 250 mg PO DAILY calcium carbonate-vitamin D2 500-125 mg-unit 1 tab PO DAILY docusate sodium (Stool Softener) 100 mg PO DAILY letrozole 2.5 mg PO DAILY lisinopril 20 mg PO DAILY multivitamin 1 tab PO DAILY HPI HPI DCIS 6 month follow up: Details: She is here for follow-up for history of DCIS. She had undergone lumpectomy last August, was noted to have DCIS on final pathology. She had finished radiation treatment last Nov, 2022. She says she is seeing Dr. Drummond of Oncology. 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 She says she feels well overall. She denies any palpable breast masses or new nipple or skin changes. Her last imaging for surveillance was last July and this was unremarkable. 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 Breast calcification, right Adult general medical exam Post-menopausal Breast cancer screening by mammogram Thyroid nodule Hypertension Bipolar disorder Obesity (BMI 30-39.9) Splenic lesion Hypercholesterolemia Breast density Surgical History H/O colonoscopy History of surgery History of removal of retained hardware History of left breast biopsy History of vaginal hysterectomy H/O varicose vein stripping Family History Father Hypertension Mother Cancer Social History Household Members: None Housing: Apartment Alcohol intake: former Comment: once Q 6 months beer Patient Tobacco Use Status: Former Tobacco user Tobacco use type: Cigarette Years Smoked: years ago stopped e-Cigarette/Vaping Use: Never Used Second Hand Smoke Exposure: No service: No Current occupational status: retired Cognitive needs: No Hearing needs: No Vision needs: Yes Review of Systems Const Denies chills and Denies fever(s) Card Denies chest pain at rest Resp Denies cough Physical Exam Vital Signs: Last Vital Signs Pulse 84 02/20/24 12:47 BP 162/78 H 02/20/24 12:47 BMI result Body Mass Index 30.4 Const General: comfortable and no acute distress Chest Other: No palpable breast mass on both breasts, no axillary lymphadenopathy, no cervical lymph nodes, no nipple or skin changes Resp Effort & Inspection: normal respiratory effort Assessment & Plan Assessment & Plan (1) History of ductal carcinoma in situ (DCIS) of breast: Code(s): Z86.000 - Personal history of in-situ neoplasm of breast Category: Medical Plan: Current breast exam is unremarkable. She is on letrozole treatment She is to follow up with Dr. Montez I will see her in the office in about 6 months after her next surveillance mammogram. Coding Level of Care Code Est Pt Level 2 (33856) Diagnoses History of ductal carcinoma in situ (DCIS) of breast Z86.000
[2024-02-20 12:47] VITALS: BP 162/78; PULSE 84; BMI 30.4
== END 2024-02-20 13:54 | disposition home or self-care (01) ==
PROVIDERS: PCP Internal Medicine; Visit Provider Surgery
DX: D05.10 Intraductal carcinoma in situ of unspecified breast (principal)
CPT/HCPCS: 99213

== ENCOUNTER → 2024-02-20 12:39 | Outpatient (BNVA) | payer MEDICARE, MEDICAID, SELFPAY | PROVIDERS: PCP Internal Medicine; Visit Provider Surgery | DX: D05.11 Intraductal carcinoma in situ of right breast (principal); Z17.0 Estrogen receptor positive status [ER+]; Z78.0 Asymptomatic menopausal state; Z92.3 Personal history of irradiation; Z79.811 Long term (current) use of aromatase inhibitors | CPT/HCPCS: 99212 ==

== ENCOUNTER 2024-03-09 14:58 | Outpatient (AMB) | payer MEDICARE, MEDICAID, SELFPAY ==
[2024-03-09 15:05] VITALS: BP 122/68; PULSE 90; O2SAT 92
--- NOTE | 2024-03-09 15:05 | A.OFFPC_ITS ---
Vital Signs 03/09/24 15:05 Height 5 ft 2 in Weight 164 lb BMI 30.0 BP 122/68 Blood Pressure Location Rt brachial Position Sitting Pulse 90 Pulse Source Pulse Oximeter Pulse Oximetry (%) 92 Oxygen Delivery Method Room Air Intake Visit Reasons: follow up sprained ankle Allergies amoxicillin [Augmentin] Allergy (Unknown, Verified 03/09/24 15:05) Unknown clavulanic acid [Augmentin] Allergy (Unknown, Verified 03/09/24 15:05) unknown Tobacco use date assessed: 09/06/23 Fall risk assessment: No Falls in past year Last assessed Fall Risk: 03/09/24 Dental Screening Dental Screen Date: 03/09/24 Did you have a dental visit in the last 12 months?: Yes Did you have a dental problem in the last 6 months where you did not have access to dental care?: No Was dental information given to patient?: Patient has dentist HPI follow up sprained ankle HPI Details 73 year old obese female with hyperchole sterolemia hypertension breast cancer and bipolar disorder coming in for follow-up. Last seen for the impacted cerumen in August 2023. Patient is mammogram is due, up-to-date with bone density Cologuard testing is up-to-date. Patient follows up with the surgeon regarding the breast cancer lumpectomy in August 2022 radiation treatment november 2022 on letrozole. Last mammogram July 2023. NNO ANKLE PROBLEM> has been exercising and complains of L knee pain but presenlty better decline xray. [facility] Medical History (Updated 03/09/24 @ 15:35 by Alex Davis MD) History of ductal carcinoma in situ (DCIS) of breast DCIS (ductal carcinoma in situ) 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 Breast calcification, right Adult general medical exam Post-menopausal Breast cancer screening by mammogram Thyroid nodule Hypertension Bipolar disorder Obesity (BMI 30-39.9) Splenic lesion Hypercholesterolemia Breast density Surgical History H/O colonoscopy History of surgery History of removal of retained hardware History of left breast biopsy History of vaginal hysterectomy H/O varicose vein stripping Family History Father Hypertension Mother Cancer Social History Household Members: None Housing: Apartment Alcohol intake: former Comment: once Q 6 months beer Patient Tobacco Use Status: Former Tobacco user Tobacco use type: Cigarette Years Smoked: years ago stopped e-Cigarette/Vaping Use: Never Used Second Hand Smoke Exposure: No service: No Current occupational status: retired Cognitive needs: No Hearing needs: No Vision needs: Yes Questionnaire PHQ-9 Over the last 2 weeks, how often have you been bothered by any of the following problems? 1. Little interest or pleasure in doing things: not at all 2. Feeling down, depressed, or hopeless: not at all 3. Trouble falling or staying asleep, or sleeping too much: not at all 4. Feeling tired or having little energy: not at all 5. Poor appetite or overeating: not at all 6. Feeling bad about yourself - or that you are a failure or have let yourself or your family down: not at all 7. Trouble concentrating on things, such as reading the newspaper or watching television: not at all 8. Moving or speaking so slowly that other people could have noticed. Or the opposite - being so fidgety or restless that you have been moving around a lot more than usual: not at all 9. Thoughts that you would be better off or of hurting yourself in some way: not at all Total score: 0 Depression Screening Interpretation: Negative Depression Screening Done: Yes 82741 - PHQ-9 Billing: Yes Source: Developed by Drs. Amadou Baxter, Joanie Palacio, Ty Thomas and colleagues, with an educational jody from [employer]. Thrive Questionnaire Date Thrive assessed: 08/16/23 AUDIT C Alcohol Use Questionnaire (AUDIT-C) 1. How often do you have a drink containing alcohol?: Never 3. How often do you have six or more drinks on one occasion?: Never Total Score: 0 KRISSY-7 AMB Questionnaire KRISSY-7 Date KRISSY - 7 assessed: 03/09/24 Feeling nervous, anxious, or on edge: 0 = Not at all Not being able to stop or control worryin = Not at all Worrying too much about different things: 0 = Not at all Trouble relaxin = Not at all Being so restless that it is hard to sit still: 0 = Not at all Becoming easily annoyed or irritable: 0 = Not at all Feeling afraid as if something awful might happen: 0 = Not at all Total KRISSY-7 score (0-4 normal; 5-9 mild; 10-14 moderate; 15-21 severe): 0 Source: Developed by Drs. Amadou Baxter, Joanie Palacio, Ty Thomas and colleagues, with an educational jody from [employer]. Physical exam (Primary Care) Vital Signs: Last Vital Signs Pulse 90 03/09/24 15:05 BP 122/68 03/09/24 15:05 Pulse Ox 92 03/09/24 15:05 Oxygen Delivery Method Room Air 03/09/24 15:05 BMI result Body Mass Index 30.0 Tobacco/Smoking Status: Tobacco use Status Tobacco use date assessed 09/06/23 03/09/24 15:11 Patient Tobacco Use Status Former Tobacco user 03/09/24 15:11 Tobacco use type Cigarette 03/09/24 15:11 e-Cigarette/Vaping Use Never Used 03/09/24 15:11 PHQ-9: PHQ-9 Score PHQ-9: Total score 0 03/09/24 15:11 Depression Screening Interpretation: Negative Thrive Assessment: Date of Thrive Assessment Date Thrive assessed 08/16/23 03/09/24 15:11 Const General: alert; No acute distress Eyes Conjunctivae: conjunctivae normal Resp Auscultation: clear to auscultation bilaterally Cardio Rate: regular rate Rhythm: regular rhythm GI Inspection: Yes normal to inspection Extrem General: Yes normal to inspection and No edema Assessment and Plan Assessment & Plan (1) History of ductal carcinoma in situ (DCIS) of breast: Comment: Right breast August 2022 Code(s): Z86.000 - Personal history of in-situ neoplasm of breast Plan: Continue to follow-up with Hematology-Oncology and the surgeon July 2023 last mammogram (2) Obesity (BMI 30-39.9): Code(s): E66.9 - Obesity, unspecified Plan: Diet and exercise (3) Hypercholesterolemia: Code(s): E78.00 - Pure hypercholesterolemia, unspecified Plan: Avoid fried foods, chicken skin, eggs, butter margarine, pastries and meat. Be it pork or beef they have a lot of cholesterol LDL goal of less than 130 and triglyceride of less than 150. (4) Hypertension: Code(s): I10 - Essential (primary) hypertension Qualifiers: Hypertension type: essential hypertension Qualified Code(s): I10 - Essential (primary) hypertension Plan: Continue with blood pressure medication. Decrease salt intake and exercise on lisinopril 20 mg once a day (5) Bipolar disorder: Comment: [place] Code(s): F31.9 - Bipolar disorder, unspecified Qualifiers: Active/Remission status: currently active Current bipolar episode type: mixed Current episode severity: moderate Qualified Code(s): F31.62 - Bipolar disorder, current episode mixed, moderate Plan: Continue with counseling and therapy (6) Impaired fasting blood sugar: Code(s): R73.01 - Impaired fasting glucose Coding Level of Care Code Est Pt Level 4 (17677) Diagnoses History of ductal carcinoma in situ (DCIS) of breast Z86.000 Obesity (BMI 30-39.9) E66.9 Hypercholesterolemia E78.00 Essential hypertension I10 Hypertension type: essential hypertension Bipolar disorder, current episode mixed, moderate F31.62 Active/Remission status: currently active Current bipolar episode type: mixed Current episode severity: moderate Impaired fasting blood sugar R73.01
== END 2024-03-09 15:47 | disposition home or self-care (01) ==
PROVIDERS: PCP Internal Medicine; Visit Provider Internal Medicine
DX: I10 Essential (primary) hypertension (principal); F31.62 Bipolar disorder, current episode mixed, moderate; Z68.30 Body mass index [BMI] 30.0-30.9, adult; E66.9 Obesity, unspecified; E78.00 Pure hypercholesterolemia, unspecified; Z86.000 Personal history of in-situ neoplasm of breast; R73.01 Impaired fasting glucose
CPT/HCPCS: 99214

== ENCOUNTER 2024-03-19 10:07 | Outpatient (AMB) | payer MEDICARE, MEDICAID, SELFPAY ==
--- NOTE | 2024-03-19 10:21 | A.OFFVIS_ITS ---
VS Expanded 03/19/24 10:21 Height 5 ft 2 in Weight 164 lb BMI 30.0 Intake Visit Reasons: Obesity/LVM Allergies amoxicillin [Augmentin] Allergy (Unknown, Verified 03/09/24 15:05) Unknown clavulanic acid [Augmentin] Allergy (Unknown, Verified 03/09/24 15:05) unknown Nutrition Presentation Details: Pt presents for MNT f/u for IFG Pt reports keeping sedentary food frequency fruits: 0-1/d dairy: 2-3 serving /d ve -4 serving/daily fish: 1 x/wk pastries and similar: 1/d BS Monitoring Most Recent Diabetes Results: Creatinine 0.76 mg/dL (0.5-1.4) 02/18/24 Blood Urea Nitrogen 17 mg/dL (9-16) H 02/18/24 Sodium 140 mmol/L (135-145) 02/18/24 Potassium 4.7 mmol/L (3.3-5.1) 02/18/24 Chloride 103 mmol/L (96-108) 02/18/24 Carbon Dioxide 28 mmol/L (22-29) 02/18/24 Calcium 10.3 mg/dL (8.4-10.2) H 02/18/24 AST 18 U/L (5-31) 02/18/24 ALT 21 U/L (0-31) 02/18/24 Total Protein 6.9 g/dL (6.5-8.0) 02/18/24 Albumin 4.4 g/dL (3.5-5.0) 02/18/24 [facility] Medical History (Updated 03/09/24 @ 15:35 by Alex Davis MD) History of ductal carcinoma in situ (DCIS) of breast DCIS (ductal carcinoma in situ) 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 Breast calcification, right Adult general medical exam Post-menopausal Breast cancer screening by mammogram Thyroid nodule Hypertension Bipolar disorder Obesity (BMI 30-39.9) Splenic lesion Hypercholesterolemia Breast density Surgical History H/O colonoscopy History of surgery History of removal of retained hardware History of left breast biopsy History of vaginal hysterectomy H/O varicose vein stripping Family History Father Hypertension Mother Cancer Social History Household Members: None Housing: Apartment Alcohol intake: former Comment: once Q 6 months beer Patient Tobacco Use Status: Former Tobacco user Tobacco use type: Cigarette Years Smoked: years ago stopped e-Cigarette/Vaping Use: Never Used Second Hand Smoke Exposure: No service: No Current occupational status: retired Cognitive needs: No Hearing needs: No Vision needs: Yes Assessment & Plan Assessment & Plan (1) Obesity (BMI 30-39.9): Code(s): E66.9 - Obesity, unspecified Category: Medical Plan: Educate Pt on reducing fats/portions ? Used wt : 87 kg (BMI 31 on 09/2022) (76 kg on 12/26/22, BMI 30.6 ) , 74 kg (08/2023), 02/2024 Est kcal as per MSJ: 1475 (40% carb, 30% fat/prot) Est fluid needs: 2175 ml/d (25 ml/kg bw) Rec fiber: increase to 8-10 g per day and gradually increase to 25 g/d or as tolerated Rec Na: < 2000 mg /d Educate patient on: (R= Reviewed, V = verbalizes understanding N/R= Needs review N/A= not applicable) * Food sources of carbohydrates and serving adequate serving sizes : R * Difference between complex carbohydrates and simple carbohydrates, role of fiber: R * Differences between fats (MUFA/PUFA/saturated fats, trans fats) and food sources of various fats: R * Food sources of sodium and salt and healthy modifications for heart health and kidney health: R * Vitamins and minerals: R * How to interpret food labels: V * Healthy Plate method concept: R V * Physical activity: benefits and precaution: R Patient Instructions: Have a fruit as snack in between meals in place of pastries, aim at having 2 fruits a day Coding Level of Care Code Nutr Indiv Subseq (06837) Diagnoses Obesity (BMI 30-39.9) E66.9 Time Spent (min) 15
== END 2024-03-19 10:35 | disposition home or self-care (01) ==
PROVIDERS: PCP Internal Medicine; Visit Provider Dietitian, Registered
DX: E66.9 Obesity, unspecified (principal)

== ENCOUNTER → 2024-03-19 10:07 | Outpatient (BNVA) | payer MEDICARE, MEDICAID, SELFPAY | PROVIDERS: PCP Internal Medicine; Visit Provider Dietitian, Registered | DX: E66.9 Obesity, unspecified (principal); Z71.3 Dietary counseling and surveillance; Z68.30 Body mass index [BMI] 30.0-30.9, adult | CPT/HCPCS: 97803 ==

== ENCOUNTER 2024-05-28 10:05 | Outpatient (AMB) | payer MEDICARE, MEDICAID, SELFPAY ==
[2024-05-28 10:11] VITALS: BP 144/80; PULSE 63; O2SAT 98; BMI 29.4
--- NOTE | 2024-05-28 10:11 | MHC.PC.OV ---
Vital Signs 05/28/24 10:11 05/28/24 10:30 Height 5 ft 2 in Weight 161 lb BMI 29.4 BP 144/80 H 142/90 H Blood Pressure Location Rt brachial Rt brachial Position Sitting Sitting Pulse 63 Pulse Source Pulse Oximeter Pulse Oximetry (%) 98 Oxygen Delivery Method Room Air Intake Visit Reasons: high bp concern Allergies amoxicillin [Augmentin] Allergy (Unknown, Verified 05/28/24 10:13) Unknown clavulanic acid [Augmentin] Allergy (Unknown, Verified 05/28/24 10:13) unknown Medication List - Last Reconciled 05/28/24 by UCHE Jenkins-Snehal aripiprazole (Abilify) take with 20 mg = 25 mg [place] aripiprazole 20 mg PO BEDTIME PRN ascorbic acid (vitamin C) 250 mg PO DAILY calcium carbonate-vitamin D2 500-125 mg-unit 1 tab PO DAILY letrozole 2.5 mg PO DAILY lisinopril 20 mg PO DAILY magnesium oxide 500 mg PO DAILY multivitamin 1 tab PO DAILY Tobacco use date assessed: 09/06/23 Fall risk assessment: No Falls in past year Last assessed Fall Risk: 05/28/24 Dental Screening Dental Screen Date: 03/09/24 HPI high bp concern HPI Details 73-year-old female with past medical history of hypercholesterolemia, hypertension, breast cancer and bipolar disorder last seen by Dr. Davis February 2024 coming in for acute problem. Patient recently went to dentist for tooth extraction was told she had high blood pressure but is unsure of the reading. She is scheduled to follow up with Oncology next month for follow up of breast cancer. She has not been taking her blood pressure at home. Denies any headaches, chest pain, shortness of breath, or vision changes. 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 Breast calcification, right Adult general medical exam Post-menopausal Breast cancer screening by mammogram Thyroid nodule Hypertension Bipolar disorder Obesity (BMI 30-39.9) Splenic lesion Hypercholesterolemia Breast density Surgical History H/O colonoscopy History of surgery History of removal of retained hardware History of left breast biopsy History of vaginal hysterectomy H/O varicose vein stripping Family History Father Hypertension Mother Cancer Social History Household Members: None Housing: Apartment Alcohol intake: former Comment: once Q 6 months beer Patient Tobacco Use Status: Former Tobacco user Tobacco use type: Cigarette Years Smoked: years ago stopped e-Cigarette/Vaping Use: Never Used Second Hand Smoke Exposure: No service: No Current occupational status: retired Cognitive needs: No Hearing needs: No Vision needs: Yes Questionnaire Thrive Questionnaire Date Thrive assessed: 08/16/23 AUDIT C Alcohol Use Questionnaire (AUDIT-C) 1. How often do you have a drink containing alcohol?: Never 3. How often do you have six or more drinks on one occasion?: Never Total Score: 0 KRISSY-7 AMB Questionnaire KRISSY-7 Date KRISSY - 7 assessed: 03/09/24 Source: Developed by Drs. Amadou Baxter, Joanie Palacio, Ty Thomas and colleagues, with an educational jody from [employer]. Physical exam (Primary Care) Vital Signs: Last Vital Signs Pulse 63 05/28/24 10:11 BP 142/90 H 05/28/24 10:30 Pulse Ox 98 05/28/24 10:11 Oxygen Delivery Method Room Air 05/28/24 10:11 BMI result Body Mass Index 29.4 Tobacco/Smoking Status: Tobacco use Status Tobacco use date assessed 09/06/23 05/28/24 10:16 Patient Tobacco Use Status Former Tobacco user 05/28/24 10:16 Tobacco use type Cigarette 05/28/24 10:16 e-Cigarette/Vaping Use Never Used 05/28/24 10:16 Thrive Assessment: Date of Thrive Assessment Date Thrive assessed 08/16/23 05/28/24 10:16 Const General: cooperative, healthy appearing, comfortable and no acute distress Orientation/consciousness: patient oriented x3 HENMT Head: Yes normocephalic Ears: hearing grossly normal bilaterally General nose exam: Normal external nose present Eyes General: appearance normal, both eyes and all related structures Conjunctivae: conjunctivae normal Neck Neck: Yes full ROM and Yes no lymphadenopathy Resp Effort & Inspection: normal respiratory effort Auscultation: clear to auscultation bilaterally, no crackles, no rales, no rhonchi and no wheezes Cardio Rate: regular rate Rhythm: regular rhythm Skin General skin exam: no rashes or lesions noted Neuro General: patient oriented x3 Gait exam (Neuro): Normal gait present Extrem General: Yes normal to inspection, Yes full ROM and No edema Psych Affect: normal affect Attitude: cooperative Insight: Good insight present (Psych) Judgement: Good judgement present (Psych) Coding Level of Care Code Est Pt Level 3 (07111) Diagnoses Impaired fasting blood sugar R73.01 History of ductal carcinoma in situ (DCIS) of breast Z86.000 Hypercholesterolemia E78.00 Obesity (BMI 30-39.9) E66.9 Essential hypertension I10 Hypertension type: essential hypertension Assessment & Plan Assessment & Plan (1) Impaired fasting blood sugar: Code(s): R73.01 - Impaired fasting glucose Category: Medical Plan: Decrease the amount of carbohydrates such as pasta, bread, rice, and potatoes and limit the amount of sweets. Although fruits are generally healthy they should be eaten in moderation as they are still high in sugar. Ordered for repeat blood work (2) History of ductal carcinoma in situ (DCIS) of breast: Comment: Right breast August 2022 Code(s): Z86.000 - Personal history of in-situ neoplasm of breast Category: Medical Plan: Continue to follow with Hematology/Oncology (3) Hypercholesterolemia: Code(s): E78.00 - Pure hypercholesterolemia, unspecified Category: Medical Plan: Avoid foods that are high in cholesterol such as red meat, fried foods, eggs and baked goods. Triglyceride goal of less than 150 and LDL goal of less than 130. Ordered for updated blood work. (4) Obesity (BMI 30-39.9): Code(s): E66.9 - Obesity, unspecified Category: Medical Plan: Healthy diet and regular exercise is encouraged. (5) Hypertension: Code(s): I10 - Essential (primary) hypertension Category: Medical Qualifiers: Hypertension type: essential hypertension Qualified Code(s): I10 - Essential (primary) hypertension Plan: Blood pressure significantly elevated at dentist and elevated once again in the office today 142/90 when retaken. We will increase lisinopril to 30 mg daily and advised patient to take blood pressures at home. If blood pressures are too high/too low please reach out to the office otherwise follow up at next visit in July. Avoid salt intake and encourage healthy diet and regular exercise. Plan This note was constructed using voice recognition software. While every effort has been made to ensure accuracy and food safety manager, still areas may have been included sometimes these areas may affect the content or meeting of the given symptoms. Total time spent caring for the patient today was 20 minutes. This includes time spent before the visit reviewing the chart, time spent during the visit, and time spent after the visit and documentation. Orders: Orders Vitamin B12 and Folate 3 Months Z00.00 - Encounter for general adult medical examination without abnormal findings Vitamin D 25-OH (D2 and D3) 3 Months Z00.00 - Encounter for general adult medical examination without abnormal findings Comprehensive Met. Panel 3 Months Z00.00 - Encounter for general adult medical examination without abnormal findings Lipid Panel 3 Months Z00.00 - Encounter for general adult medical examination without abnormal findings TSH reflex Free T4 3 Months Z00.00 - Encounter for general adult medical examination without abnormal findings Hemoglobin A1c 3 Months Z00.00 - Encounter for general adult medical examination without abnormal findings Complete Blood Count Auto Diff 3 Months Z00.00 - Encounter for general adult medical examination without abnormal findings Medications: New lisinopril 30 mg PO DAILY 30 tabs 2RF On Hold lisinopril Hold Comment: Doctor's Order 20 mg PO DAILY 90 tabs 2RF
[2024-05-28 10:30] VITALS: BP 142/90
== END 2024-05-28 10:41 | disposition home or self-care (01) ==
LOC: HO.HMCH 10:06
PROVIDERS: PCP Internal Medicine
DX: E78.00 Pure hypercholesterolemia, unspecified (principal); R73.01 Impaired fasting glucose; E66.9 Obesity, unspecified; Z68.29 Body mass index [BMI] 29.0-29.9, adult; Z86.000 Personal history of in-situ neoplasm of breast; I10 Essential (primary) hypertension

== ENCOUNTER → 2024-05-28 10:05 | Outpatient (BNVA) | payer MEDICARE, MEDICAID, SELFPAY | PROVIDERS: PCP Internal Medicine | DX: R73.01 Impaired fasting glucose (principal); E78.00 Pure hypercholesterolemia, unspecified; E66.9 Obesity, unspecified; I10 Essential (primary) hypertension; Z86.000 Personal history of in-situ neoplasm of breast | CPT/HCPCS: 99212 ==

== ENCOUNTER 2024-08-21 13:39 | Outpatient (AMB) | payer MEDICARE, MEDICAID, SELFPAY ==
--- NOTE | 2024-08-21 13:57 | A.OFFVIS_ITS ---
Intake Vital Signs 08/21/24 13:58 Height 5 ft 2 in Weight 163 lb 2 oz BMI 29.8 BP 110/66 Blood Pressure Location Rt brachial Position Sitting Pulse 75 Pulse Source Pulse Oximeter Temp 96.9 F Temp Source Skin Pulse Oximetry (%) 95 Oxygen Delivery Method Room Air Intake Visit Reasons: AWV Intake Note: Patient is here for an Annual Wellness Visit. Bundler Seasonal Greenery Required: No Wool Sampler: Wool Sampler offered & declined Accompanied by: Self / Same As Patient Allergies amoxicillin [Augmentin] Allergy (Unknown, Verified 08/21/24 14:31) Unknown clavulanic acid [Augmentin] Allergy (Unknown, Verified 08/21/24 14:31) unknown Medication List - Last Reconciled 08/21/24 by Veronica Quinteros PA-C acetaminophen 1,000 mg PO ONCE PRN aripiprazole (Abilify) take with 20 mg = 25 mg Shanta [place] aripiprazole 20 mg PO BEDTIME PRN ascorbic acid (vitamin C) 250 mg PO DAILY calcium carbonate-vitamin D2 500-125 mg-unit 1 tab PO DAILY letrozole 2.5 mg PO DAILY lisinopril 30 mg PO DAILY magnesium oxide 500 mg PO DAILY multivitamin 1 tab PO DAILY HPI AWV HPI Details 73-year-old female with past medical his tory of hypercholesterolemia, hypertension, breast cancer and bipolar disorder last seen 04/2024 coming in for annual wellness exam.?In review of the notes, patient was seen by Hematology/Oncology 05/2024 currently on letrozole and doing well on this medication advised to follow up in 4 months. Patient tells us today she follows with a psychiatrist through [facility] and has a therapist as well and feels stable on her medication. She does mentioned she had 1 episode of chest pain that lasted for about 30 seconds 2 weeks ago and has not had any recurrence. She denies any shortness of breath or any other symptoms with this episode and it resolved spontaneously. 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 Breast calcification, right Adult general medical exam Post-menopausal Breast cancer screening by mammogram Thyroid nodule Hypertension Bipolar disorder Obesity (BMI 30-39.9) Splenic lesion Hypercholesterolemia Breast density Surgical History H/O colonoscopy History of surgery History of removal of retained hardware History of left breast biopsy History of vaginal hysterectomy H/O varicose vein stripping Family History Father Hypertension Mother Cancer Social History Household Members: None Housing: Apartment Alcohol intake: former Comment: once Q 6 months beer Patient Tobacco Use Status: Former Tobacco user Tobacco use type: Cigarette Years Smoked: years ago stopped e-Cigarette/Vaping Use: Never Used Second Hand Smoke Exposure: No service: No Current occupational status: retired Cognitive needs: No Hearing needs: No Vision needs: Yes Questionnaire Medicare Wellness Checkup [age] What gender do you identify with?: female During the past 4 weeks, how much have you been bothered by emotional problems such as feeling anxious, depressed, irritable, sad or downhearted, and blue?: not at all During the past 4 weeks, has your physical & emotional health limited your social activities with family, friends, neighbors, or groups?: not at all During the past 4 weeks, how much bodily pain have you generally had?: mild pain During the past 4 weeks, was someone available to help you if you needed & wanted help?: yes, as much as I wanted During the past 4 weeks, what was the hardest physical activity you could do for at least 2 minutes?: moderate Can you get to places out of walking distance without help? (For eg., can you travel alone on buses, taxis or drive your car?): Yes Can you go shopping for groceries or clothes without someone's help?: Yes Can you prepare your own meals?: Yes Can you do your housework without help?: Yes Because of any health problems, do you need the help of another person with your personal care needs such as eating, bathing, dressing or getting around the house?: No Can you handle your own money without help?: Yes During the past 4 weeks, how would you rate your health in general?: good During the past 4 weeks how have things been going for you?: pretty well Are you having difficulties driving your car?: not applicable, I don't use a car Do you always fasten your seat belt when you are in a car?: yes, usually During past 4 weeks, have you been bothered by the following: never: Sexual problems?, Trouble eating well?, Teeth or denture problems?, Problems using the telephone? and Tiredness or fatigue? and seldom: Falling or dizzy when standing up Have you fallen 2 or more times in the past year?: No Are you afraid of falling?: No Are you a smoker?: no During the past 4 weeks, how many drinks of wine, beer, or other alcoholic beverages did you have?: no alcohol at all Do you exercise for about 20 minutes 3 or more times a week?: yes, some of the time Have you been given information to help with the following?: yes: Keeping track of your medications? and no: Hazards in your house that might hurt you? How often do you have trouble taking medicines the way you have been told to take them?: I always take medicine as prescribed How confident are you that you can control & manage most of your health problems?: very confident What is your race?: White PHQ-9 Over the last 2 weeks, how often have you been bothered by any of the following problems? 1. Little interest or pleasure in doing things: not at all 2. Feeling down, depressed, or hopeless: not at all 3. Trouble falling or staying asleep, or sleeping too much: not at all 4. Feeling tired or having little energy: not at all 5. Poor appetite or overeating: not at all 6. Feeling bad about yourself - or that you are a failure or have let yourself or your family down: not at all 7. Trouble concentrating on things, such as reading the newspaper or watching television: not at all 8. Moving or speaking so slowly that other people could have noticed. Or the opposite - being so fidgety or restless that you have been moving around a lot more than usual: not at all 9. Thoughts that you would be better off or of hurting yourself in some way: not at all Total score: 0 Depression Screening Interpretation: Negative Depression Screening Done: Yes Source: Developed by Drs. Amadou Baxter, Joanie Palacio, Ty Thomas and colleagues, with an educational jody from [employer]. Thrive Questionnaire Date Thrive assessed: 08/21/24 I am a: Patient What is your living situation today?: I have a steady place to live Within the past 12 months, did the food you bought not last and you didn't have the money to get more?: Never true Within the past 12 months, did you worry whether your food would run out before you got money to buy more?: Never true Do you have trouble paying for medicines?: No Do you have trouble getting transportation to medical appointments?: No Do you have trouble paying your heating and electricity bill?: No Do you have trouble taking care of your child, family member or friend?: No Do you have trouble with day-to-day activities such as bathing, preparing meals, shopping, managing finances, etc.?: No Are you currently unemployed and looking for a job?: No Are you interested in more education?: No Please select the resources that you would like help with: None Currently or been in a relationship where the following occur: No concerns reported THRIVE Score: 0 KRISSY-7 AMB Questionnaire KRISSY-7 Date KRISSY - 7 assessed: 08/21/24 Feeling nervous, anxious, or on edge: 0 = Not at all Not being able to stop or control worryin = Not at all Worrying too much about different things: 0 = Not at all Trouble relaxin = Not at all Being so restless that it is hard to sit still: 0 = Not at all Becoming easily annoyed or irritable: 0 = Not at all Feeling afraid as if something awful might happen: 0 = Not at all Total KRISSY-7 score (0-4 normal; 5-9 mild; 10-14 moderate; 15-21 severe): 0 Source: Developed by Drs. Amadou Baxter, Joanie Palacio, Ty Thomas and colleagues, with an educational jody from [employer]. Review of Systems Const Denies body aches, Denies chills, Denies fever(s), Denies headache(s) and Denies poor appetite Eyes Reports no additional complaints ENT Denies dysphagia, Denies dizziness, Denies headache(s) and Denies odynophagia Card Denies chest pain, Denies syncope, Denies edema, Denies irregular heart rhythm, Denies lightheadedness and Denies dyspnea Resp Denies cough and Denies dyspnea GI Denies abdominal pain, Denies constipation, Denies dysphagia, Denies diarrhea, Denies nausea, Denies odynophagia and Denies vomiting Reports no additional complaints Musc Reports no additional complaints and Denies abnormal gait Skin/Breast Reports system reviewed and no additional complaints, except as documented Neuro Denies abnormal gait, Denies dizziness, Denies syncope and Denies headache(s) Psych Reports no additional complaints Physical Exam Vital Signs: Last Vital Signs Temp 96.9 F 08/21/24 13:58 Pulse 75 08/21/24 13:58 BP 110/66 08/21/24 13:58 Pulse Ox 95 08/21/24 13:58 Oxygen Delivery Method Room Air 08/21/24 13:58 BMI result Body Mass Index 29.8 Const General: cooperative, healthy appearing, comfortable and no acute distress Orientation/consciousness: patient oriented x3 HEENT Head: Yes normocephalic Ears: hearing grossly normal bilaterally, external ears normal, TM's normal bilaterally and EAC's normal General nose exam: Normal external nose present Face and sinus: Yes normal facial exam and Yes sinuses nontender Mouth: Normal oral and palatal mucosa present and tongue normal Throat: Yes posterior oropharynx normal Eyes General: appearance normal, both eyes and all related structures Conjunctivae: conjunctivae normal Pupils: Equal, round and reactive pupils present EOM: EOMs intact bilaterally and No Nystagmus present Neck Neck: Yes normal visual inspection, Yes full ROM and Yes no lymphadenopathy Chest Chest palpation & inspection: normal inspection of the chest Resp Effort & Inspection: normal respiratory effort Auscultation: clear to auscultation bilaterally, no crackles, no rales, no rhonchi, no wheezes and breath sounds present Cardio Rate: regular rate Rhythm: regular rhythm Peripheral pulses: radial pulses present and dorsalis pedis present GI Inspection: Yes normal to inspection and No Abdominal wall edema Palpation (GI): Soft to palpation, not firm and nontender Auscultation: normal bowel sounds Rectal Exam - Female: deferred General: Yes no CVA tenderness Back/Spine/Pelvis Back: no CVA tenderness Skin General skin exam: no rashes or lesions noted Neuro Other: Patient is cognitively intact and is able to make informed decisions about her health General: patient oriented x3 Cranial nerves: Yes Equal, round and reactive pupils present, Yes Midline tongue present, Yes Ability to bilaterally elevate shoulders present and No Nystagmus present Gait exam (Neuro): Normal gait present Extrem General: Yes normal to inspection, Yes full ROM, No no pedal edema and No edema Psych Speech and movement: Normal speech and movement present Affect: normal affect Insight: Good insight present (Psych) Judgement: Good judgement present (Psych) Assessment & Plan Assessment & Plan (1) Impaired fasting blood sugar: Code(s): R73.01 - Impaired fasting glucose Plan: Decrease the amount of carbohydrates such as pasta, bread, rice, and potatoes and limit the amount of sweets. Although fruits are generally healthy they should be eaten in moderation as they are still high in sugar. (2) History of ductal carcinoma in situ (DCIS) of breast: Comment: Right breast August 2022 Code(s): Z86.000 - Personal history of in-situ neoplasm of breast Plan: Currently following with Hematology/Oncology advised to continue on letrozole and follow up in 4 months. She will have her mammogram later this week. (3) Medicare annual wellness visit, subsequent: Code(s): Z00.00 - Encounter for general adult medical examination without abnormal findings (4) Osteopenia: Comment: 09/19, 09/21 Code(s): M85.80 - Other specified disorders of bone density and structure, unspecified site Qualifiers: Osteopenia location: unspecified Qualified Code(s): M85.80 - Other specified disorders of bone density and structure, unspecified site Plan: Bone density completed 08/2023 showing osteopenia advised to continue on letrozole. (5) Hypertension: Code(s): I10 - Essential (primary) hypertension Qualifiers: Hypertension type: essential hypertension Qualified Code(s): I10 - Essential (primary) hypertension Plan: Continue on current blood pressure medication. Avoid salt intake and encourage healthy diet and regular exercise. (6) Bipolar disorder: Comment: SHANTA [place] Code(s): F31.9 - Bipolar disorder, unspecified Qualifiers: Active/Remission status: currently active Current bipolar episode type: mixed Current episode severity: moderate Qualified Code(s): F31.62 - Bipolar disorder, current episode mixed, moderate Plan: Currently following with psychiatrist through [facility] and has counselor as well. Feels stable on her Abilify as no acute concerns today. (7) Obesity (BMI 30-39.9): Code(s): E66.9 - Obesity, unspecified Plan: Healthy diet and regular exercise is encouraged. Patient requesting to try Wegovy for weight loss. I discussed with patient at length the risks and benefits of this medications as well as a side effects and patient would like to try the medication. Reviewed with patient how to administer this medication appropriately and advised we will have repeat blood work in 1 month to monitor her liver function. Wegovy 0.25 mg sent to pharmacy advised patient to follow up if she has any other concerns or questions (8) Hypercholesterolemia: Code(s): E78.00 - Pure hypercholesterolemia, unspecified Plan: Avoid foods that are high in cholesterol such as red meat, fried foods, eggs and baked goods. Triglyceride goal of less than 150 and LDL goal of less than 100. No currently on medical management. Reminded patient about blood work Plan This note was constructed using voice recognition software. While every effort has been made to ensure accuracy and registered nursing professor, still areas may have been included sometimes these areas may affect the content or meeting of the given symptoms. Total time spent caring for the patient today was 30 minutes. This includes time spent before the visit reviewing the chart, time spent during the visit, and time spent after the visit and documentation. Medications: New semaglutide (weight loss) (Wegovy) administer weeks 1 through 4 of therapy 0.25 mg (0.5 mL) subcut QWEEK 2 mL 0RF Quality Reporting (2019) Depression/Bipolar (159/160/161/177) PHQ-9: Total score: 0 Coding Level of Care Code Medicare Subsequent (G0439) Diagnoses Impaired fasting blood sugar R73.01 History of ductal carcinoma in situ (DCIS) of breast Z86.000 Medicare annual wellness visit, subsequent Z00.00 Osteopenia, unspecified location M85.80 Osteopenia location: unspecified Essential hypertension I10 Hypertension type: essential hypertension Bipolar disorder, current episode mixed, moderate F31.62 Active/Remission status: currently active Current bipolar episode type: mixed Current episode severity: moderate Obesity (BMI 30-39.9) E66.9 Hypercholesterolemia E78.00 CPT Codes Advance Care Planning - Advance Care Planning discussion: On file, no changes ([id number]) Advance Care Planning - Time spent: 1-15 minutes, on File ([id number]) Advance Care Planning Advance Care Planning discussion: On file, no changes Date of discussion: 08/21/24 Forms completed: Health Care Proxy and [facility]OL[facility] Time spent: 1-15 minutes, on File Actual minutes spent: 5
[2024-08-21 13:58] VITALS: BP 110/66; PULSE 75; TEMP 36.1; O2SAT 95; BMI 29.8
== END 2024-08-21 14:51 | disposition home or self-care (01) ==
PROVIDERS: PCP Internal Medicine
DX: Z00.00 Encounter for general adult medical examination without abnormal findings (principal); F31.62 Bipolar disorder, current episode mixed, moderate; R73.01 Impaired fasting glucose; Z86.000 Personal history of in-situ neoplasm of breast; M85.80 Other specified disorders of bone density and structure, unspecified site; I10 Essential (primary) hypertension; E66.9 Obesity, unspecified; E78.00 Pure hypercholesterolemia, unspecified

== ENCOUNTER 2024-08-24 10:35 | Outpatient (REF) | payer MEDICARE, MEDICAID, SELFPAY ==
--- NOTE | ~2024-08-24 | MM_ITS ---
EXAMINATION: MM DIAGNOSTIC DIGITAL BREAST TOMOSYNTHESIS, BILATERAL CLINICAL INFORMATION: History of right breast cancer status post lumpectomy 2022. COMPARISON: Mammography: Comparison is made with relevant prior exams. TECHNIQUE: Digital breast mammography with tomosynthesis is performed in both the craniocaudal and mediolateral oblique views along with computer-aided detection (CAD). FINDINGS: There are scattered areas of fibroglandular density (ACR BI-RADS breast composition Category b). Post lumpectomy changes in the right breast are stable. There are no significant masses, abnormal calcifications, or other abnormalities. Results are provided to the patient at time of visit by the technologist. MM/MM tomosynthesis diagnostic BI IMPRESSION: There are no significant changes from prior study. ASSESSMENT: BI-RADS BI-RADS 2 - Benign Findings RECOMMENDATION: 1 year F/U This patient's information was entered into a reminder system with a target due date for their next mammogram. Electronically signed by: Jacey Gomez DO 08/24/2024 11:45 AM MALIKA
== END 2024-08-24 10:36 | disposition home or self-care (01) ==
LOC: HO.MAMMO 10:35
PROVIDERS: PCP Internal Medicine; Visit Provider Surgery
DX: Z86.000 Personal history of in-situ neoplasm of breast (principal)
CPT/HCPCS: 77062; 77066

== ENCOUNTER → 2024-08-24 11:00 | Outpatient (BNV) | payer MEDICARE, MEDICAID, SELFPAY | PROVIDERS: PCP Internal Medicine; Visit Provider Internal Medicine | DX: Z85.3 Personal history of malignant neoplasm of breast (principal); Z98.890 Other specified postprocedural states; R92.323 Mammographic fibroglandular density, bilateral breasts | CPT/HCPCS: 77066; G0279 ==

== ENCOUNTER 2024-08-27 13:11 | Outpatient (AMB) | payer MEDICARE, MEDICAID, SELFPAY ==
--- NOTE | 2024-08-27 13:12 | A.OFFVIS_ITS ---
Vital Signs 08/27/24 13:13 Height 5 ft 2 in Weight 166 lb BMI 30.4 Intake Visit Reasons: 6 month breast exam Intake Note: This patient presents for six month breast examination assessment. Pt c/o; no concerns. Imagin08/20/23- MM Diag, Breast US [facility] Therapist Required: No Accompanied by: Self / Same As Patient Allergies amoxicillin [Augmentin] Allergy (Unknown, Verified 08/27/24 13:19) Unknown clavulanic acid [Augmentin] Allergy (Unknown, Verified 08/27/24 13:19) unknown Medication List - Last Reconciled 08/27/24 by Galdino Porter MD acetaminophen 1,000 mg PO ONCE PRN aripiprazole (Abilify) take with 20 mg = 25 mg Shanta [place] aripiprazole 20 mg PO BEDTIME PRN ascorbic acid (vitamin C) 250 mg PO DAILY calcium carbonate-vitamin D2 500-125 mg-unit 1 tab PO DAILY letrozole 2.5 mg PO DAILY lisinopril 30 mg PO DAILY magnesium oxide 500 mg PO DAILY multivitamin 1 tab PO DAILY semaglutide (weight loss) (Wegovy) 0.25 mg (0.5 mL) subcut QWEEK HPI HPI 6 month breast exam: Details: She is here for follow-up for history of DCIS. She had undergone lumpectomy last August, was noted to have DCIS on final pathology. She had finished radiation treatment last Nov, 2022. She says she is seeing Dr. Drummond of Oncology. 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 She says she feels well overall. She denies any palpable breast masses or new nipple or skin changes. She did have her follow-up mammogram 3 days ago last 08/24/2024 and this had benign findings. 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 Breast calcification, right Adult general medical exam Post-menopausal Breast cancer screening by mammogram Thyroid nodule Hypertension Bipolar disorder Obesity (BMI 30-39.9) Splenic lesion Hypercholesterolemia Breast density Surgical History H/O colonoscopy History of surgery History of removal of retained hardware History of left breast biopsy History of vaginal hysterectomy H/O varicose vein stripping Family History Father Hypertension Mother Cancer Social History Household Members: None Housing: Apartment Alcohol intake: former Comment: once Q 6 months beer Patient Tobacco Use Status: Former Tobacco user Tobacco use type: Cigarette Years Smoked: years ago stopped e-Cigarette/Vaping Use: Never Used Second Hand Smoke Exposure: No service: No Current occupational status: retired Cognitive needs: No Hearing needs: No Vision needs: Yes Review of Systems Const Denies chills and Denies fever(s) Card Denies chest pain, Denies dyspnea and Denies dyspnea on exertion Resp Denies cough, Denies dyspnea and Denies dyspnea on exertion GI Denies hematochezia and Denies change in bowel habits Denies hematuria Musc Denies back pain and Denies limited range of motion Neuro Denies focal weakness and Denies convulsions Psych Denies depression and Denies mood swings Physical Exam Vital Signs: BMI result Body Mass Index 30.4 Const General: comfortable and no acute distress Orientation/consciousness: patient oriented x3 Neck Neck: Yes no lymphadenopathy Chest Other: No palpable breast masses, no nipple or skin changes, no axillary lymphadenopathy Resp Auscultation: clear to auscultation bilaterally Cardio Rhythm: regular rhythm GI Palpation (GI): Soft to palpation, nontender and no guarding Neuro General: patient oriented x3 Assessment & Plan Assessment & Plan (1) History of ductal carcinoma in situ (DCIS) of breast: Comment: Right breast August 2022 Code(s): Z86.000 - Personal history of in-situ neoplasm of breast Category: Medical Plan: She continues to do well after lumpectomy for DCIS. She denies any significant complaints at this time. She does state that she has started on Wegovy for weight loss. Breast exam is unremarkable. She continues to be on letrozole. She was reminded to continue to undergo regular yearly screening mammograms I will see her in the office in about 6 months. Coding Level of Care Code Est Pt Level 3 (45771) Complex EM visit Add On G2211 Diagnoses History of ductal carcinoma in situ (DCIS) of breast Z86.000
[2024-08-27 13:13] VITALS: BMI 30.4
== END 2024-08-27 13:48 | disposition home or self-care (01) ==
PROVIDERS: PCP Internal Medicine; Visit Provider Surgery
DX: Z86.000 Personal history of in-situ neoplasm of breast (principal)
CPT/HCPCS: 99213; G2211

== ENCOUNTER → 2024-08-27 13:11 | Outpatient (BNVA) | payer MEDICARE, MEDICAID, SELFPAY | PROVIDERS: PCP Internal Medicine; Visit Provider Surgery | DX: D05.11 Intraductal carcinoma in situ of right breast (principal) | CPT/HCPCS: 99212 ==

== ENCOUNTER 2024-09-17 09:40 | Outpatient (AMB) | payer MEDICARE, MEDICAID, SELFPAY ==
[2024-09-17 10:05] VITALS: BMI 29.8
--- NOTE | 2024-09-17 10:05 | A.OFFVIS_ITS ---
VS Expanded 09/17/24 10:05 Height 5 ft 2 in Weight 163 lb 2.273 oz BMI 29.8 Intake Visit Reasons: ifg Allergies amoxicillin [Augmentin] Allergy (Unknown, Verified 08/27/24 13:19) Unknown clavulanic acid [Augmentin] Allergy (Unknown, Verified 08/27/24 13:19) unknown Nutrition Presentation Details: Pt presents for MNT for 6 m f/u for obesity, IFG Pt reports having 3 meals/d, working on choosing low sugar beverages Typical meal Breakfast: yogurt and blueberries/egg Lunch: rice/squash/tilapia, tea cold dinner: noodles/beef/broccoli, water or tea snack: chips or popcorn physical activity 1/wk (stretches/) food frequency fruits: 0-1/d fish : 2x/wk dairy: yogurts 1x/d, milk (whole) 2 x/d, cheese 3x/wk vegetables: daily starches: 22 serving/d, combo complex/simple beverages: coffee/tea, water, juice BS Monitoring Most Recent Diabetes Results: Creatinine 0.71 mg/dL (0.5-1.4) 06/19/24 Blood Urea Nitrogen 12 mg/dL (9-16) 06/19/24 Sodium 141 mmol/L (135-145) 06/19/24 Potassium 4.3 mmol/L (3.3-5.1) 06/19/24 Chloride 105 mmol/L (96-108) 06/19/24 Carbon Dioxide 30 mmol/L (22-29) H 06/19/24 Calcium 9.8 mg/dL (8.4-10.2) 06/19/24 AST 24 U/L (5-31) 06/19/24 ALT 24 U/L (0-31) 06/19/24 Total Protein 6.8 g/dL (6.5-8.0) 06/19/24 Albumin 4.3 g/dL (3.5-5.0) 06/19/24 [facility] Medical History History of ductal carcinoma in situ (DCIS) of breast DCIS (ductal carcinoma in situ) 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 Breast calcification, right Adult general medical exam Post-menopausal Breast cancer screening by mammogram Thyroid nodule Hypertension Bipolar disorder Obesity (BMI 30-39.9) Splenic lesion Hypercholesterolemia Breast density Surgical History H/O colonoscopy History of surgery History of removal of retained hardware History of left breast biopsy History of vaginal hysterectomy H/O varicose vein stripping Family History Father Hypertension Mother Cancer Social History Household Members: None Housing: Apartment Alcohol intake: former Comment: once Q 6 months beer Patient Tobacco Use Status: Former Tobacco user Tobacco use type: Cigarette Years Smoked: years ago stopped e-Cigarette/Vaping Use: Never Used Second Hand Smoke Exposure: No service: No Current occupational status: retired Cognitive needs: No Hearing needs: No Vision needs: Yes Assessment & Plan Assessment & Plan (1) Obesity (BMI 30-39.9): Code(s): E66.9 - Obesity, unspecified Category: Medical Plan: REview low sodium/fiber rich foods ? Used wt : 87 kg (BMI 31 on 09/2022) (76 kg on 12/26/22, BMI 30.6 ) , 74 kg (08/2023), 02/2024 Est kcal as per MSJ: 1475 (40% carb, 30% fat/prot) Est fluid needs: 2175 ml/d (25 ml/kg bw) Rec fiber: increase to 8-10 g per day and gradually increase to 25 g/d or as tolerated Rec Na: < 2000 mg /d Educate patient on: (R= Reviewed, V = verbalizes understanding N/R= Needs review N/A= not applicable) * Food sources of carbohydrates and serving adequate serving sizes : R * Difference between complex carbohydrates and simple carbohydrates, role of fiber: R * Differences between fats (MUFA/PUFA/saturated fats, trans fats) and food sources of various fats: R * Food sources of sodium and salt and healthy modifications for heart health and kidney health: R * Vitamins and minerals: R * How to interpret food labels: V * Healthy Plate method concept: R V * Physical activity: benefits and precaution: R Patient Instructions: Have water with meals, dilute juice with water Have a fruit twice a day (fresh, fruits cups, canned in its own juice) Coding Level of Care Code Nutr Indiv Subseq (35105) Diagnoses Obesity (BMI 30-39.9) E66.9 Time Spent (min) 30
== END 2024-09-17 10:25 | disposition home or self-care (01) ==
PROVIDERS: PCP Internal Medicine; Visit Provider Dietitian, Registered
DX: E66.9 Obesity, unspecified (principal)

== ENCOUNTER → 2024-09-17 09:40 | Outpatient (BNVA) | payer MEDICARE, MEDICAID, SELFPAY | PROVIDERS: PCP Internal Medicine; Visit Provider Dietitian, Registered | DX: E66.9 Obesity, unspecified (principal); Z68.29 Body mass index [BMI] 29.0-29.9, adult | CPT/HCPCS: 97803 ==

== ENCOUNTER 2024-11-04 10:22 | Outpatient (REF) | payer MEDICARE, MEDICAID, SELFPAY ==
[2024-11-04 10:37] LABS: MANUAL DIFF FLAG NO
[2024-11-04 11:26] LABS: Basophils Percent Auto 0.8 % (0-2); Eosinophils Absolute Auto 0.1 X10*3/uL (0.0-0.4); Eosinophils Percent Auto 1.5 % (0-4); Hematocrit 37.5 % (37.0-47.0); Hemoglobin 12.8 g/dl (12.0-16.0); Imm Gran Abs Auto 0.01 X10*3/uL (0.00-0.03); Imm Gran Pct Auto 0.2 % (0.0-0.4); Lymphocytes Absolute Auto 1.3 X10*3/uL (1.2-4.9); Lymphocytes Percent Auto 24.8 % (20-40); Mean Corpuscular HGB Conc 34.1 g/dl (31.0-35.0); Mean Platelet Volume 9.4 fL (9.4-12.3); Monocytes Absolute Auto 0.3 X10*3/uL (0.1-1.2); Monocytes Percent Auto 5.7 % (2-11); Neutrophils Absolute Auto 3.5 x10*3/uL (2.0-8.3); Platelet Count 199 X10*3/uL (160-400); Red Blood Count 4.26 X10*6/uL (4.20-5.50); Red Cell Distribution Width 12.8 % (11.0-16.0); White Blood Count 5.2 X10*3/uL (4.8-10.8)
[2024-11-04 11:27] LABS: Estimated Average Glucose 114 mg/dL; Hemoglobin A1C 127.1301 umol/L; Hemoglobin A1c % 5.6 % (<6.0)
[2024-11-04 11:56] LABS: Alanine Aminotransferase 24 U/L (0-31); Albumin Level 4.2 g/dL (3.5-5.0); Alkaline Phosphatase 71 U/L (39-117); Anion Gap 9 (12-20); Aspartate Amino Transferase 22 U/L (5-31); Bilirubin Total 1.1 mg/dL (0.0-1.0); Blood Urea Nitrogen 17 mg/dL (9-16); Calcium 9.4 mg/dL (8.4-10.2); Carbon Dioxide 28 mmol/L (22-29); Chloride 106 mmol/L (96-108); Cholesterol 192 mg/dL (<200); Estimated Glomerular Filt Rate > 60; Glucose Random 107 mg/dL (60-115); HDL Cholesterol 42 mg/dL (>40); LDL Cholesterol Calculated 122 mg/dL (<100); Potassium 4.4 mmol/L (3.3-5.1); Sodium 139 mmol/L (135-145); Total Protein 6.8 g/dL (6.5-8.0); Triglycerides 140 mg/dL (<150)
[2024-11-04 12:12] LABS: TSH reflex Free T4 0.47 uIU/mL (0.32-4.0)
[2024-11-04 12:22] LABS: Folate 15.4 ng/mL (> or = 4.0); Vitamin B12 708 pg/mL (200-900)
[2024-11-08 18:23] LABS: Vitamin D 25-OH, D2 <4 ng/mL; Vitamin D 25-OH, D3 64 ng/mL; Vitamin D 25-OH, Total 64 ng/mL (30-100)
== END 2024-11-04 10:23 | disposition home or self-care (01) ==
LOC: HO.LAB 10:22
PROVIDERS: PCP Internal Medicine
DX: Z00.00 Encounter for general adult medical examination without abnormal findings (principal); Z13.1 Encounter for screening for diabetes mellitus; Z13.6 Encounter for screening for cardiovascular disorders
CPT/HCPCS: 36415; 80053; 80061; 82306; 82607; 82746; 83036; 84443; 85025

== ENCOUNTER 2024-11-19 13:42 | Outpatient (AMB) | payer MEDICARE, MEDICAID, SELFPAY ==
[2024-11-19 13:53] VITALS: BP 136/84; PULSE 88; O2SAT 94; BMI 30.2
--- NOTE | 2024-11-19 13:53 | MHC.PC.OV ---
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: No Accompanied by: Self / Same As Patient Allergies amoxicillin [Augmentin] Allergy (Unknown, Verified 11/19/24 13:54) Unknown clavulanic acid [Augmentin] Allergy (Unknown, Verified 11/19/24 13:54) unknown Medication List - Last Reconciled 11/19/24 by Veronica Quinteros PA-C acetaminophen 1,000 mg PO ONCE PRN aripiprazole (Abilify) take with 20 mg = 25 mg Shanta Otis aripiprazole 20 mg PO BEDTIME PRN ascorbic acid (vitamin C) 250 mg PO DAILY calcium carbonate-vitamin D2 500-125 mg-unit 1 tab PO DAILY letrozole 2.5 mg PO DAILY lisinopril 30 mg PO DAILY multivitamin 1 tab PO DAILY Tobacco use date assessed: 11/19/24 Fall risk assessment: No Falls in past year Last assessed Fall Risk: 11/19/24 Dental Screening Dental Screen Date: 11/19/24 Did you have a dental visit in the last 12 months?: Yes Did you have a dental problem in the last 6 months where you did not have access to dental care?: No Was dental information given to patient?: Patient has dentist HPI f/u weight loss HPI Details 74-year-old female with past medical history of hypercholesterolemia, hypertension, breast cancer and bipolar disorder last seen 07/2024 coming in for weight check. In review of the notes, Wegovy was initiated at last visit however was not covered by her insurance and prior Auth was denied.?She has seen her oncologist 09/2024 recommending blood work an appointment to follow.?She was seen by General surgery 08/27/2024 continue on letrozole and follow up in 6 months. Presenting with knee pain and swelling. Symptoms began approximately six months ago after using an elliptical machine. She reports initial swelling and pain, especially with motions involved in daily activities at work. Pain has improved, with no recent swelling, though discomfort persists, particularly involving the sides and muscle areas surrounding the knee. She reports a past fall injury affecting her arm, managed with weight-lifting and philly exercises. The patient is addressing slight weight gain with patient financial specialist guidance. She mentions not using the Wegovy as there were side effects as she did not want. 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 Breast calcification, right Adult general medical exam Post-menopausal Breast cancer screening by mammogram Thyroid nodule Hypertension Bipolar disorder Obesity (BMI 30-39.9) Splenic lesion Hypercholesterolemia Breast density Surgical History H/O colonoscopy History of surgery History of removal of retained hardware History of left breast biopsy History of vaginal hysterectomy H/O varicose vein stripping Family History Father Hypertension Mother Cancer Social History Household Members: None Housing: Apartment Alcohol intake: former Comment: once Q 6 months beer Patient Tobacco Use Status: Former Tobacco user Tobacco use type: Cigarette Years Smoked: years ago stopped e-Cigarette/Vaping Use: Never Used Second Hand Smoke Exposure: No service: No Current occupational status: retired Cognitive needs: No Hearing needs: No Vision needs: Yes Questionnaire PHQ-9 Over the last 2 weeks, how often have you been bothered by any of the following problems? 1. Little interest or pleasure in doing things: not at all 2. Feeling down, depressed, or hopeless: not at all 3. Trouble falling or staying asleep, or sleeping too much: not at all 4. Feeling tired or having little energy: not at all 5. Poor appetite or overeating: not at all 6. Feeling bad about yourself - or that you are a failure or have let yourself or your family down: not at all 7. Trouble concentrating on things, such as reading the newspaper or watching television: not at all 8. Moving or speaking so slowly that other people could have noticed. Or the opposite - being so fidgety or restless that you have been moving around a lot more than usual: not at all 9. Thoughts that you would be better off or of hurting yourself in some way: not at all Total score: 0 Depression Screening Interpretation: Negative Depression Screening Done: Yes Source: Developed by Drs. Amadou Baxter, Joanie Palacio, Ty Thomas and colleagues, with an educational jody from [employer] ([employer] Thrive Questionnaire Date Thrive assessed: 11/19/24 I am a: Patient What is your living situation today?: I have a steady place to live Within the past 12 months, did the food you bought not last and you didn't have the money to get more?: Never true Within the past 12 months, did you worry whether your food would run out before you got money to buy more?: Never true Do you have trouble paying for medicines?: No Do you have trouble getting transportation to medical appointments?: No Do you have trouble paying your heating and electricity bill?: No Do you have trouble taking care of your child, family member or friend?: No Do you have trouble with day-to-day activities such as bathing, preparing meals, shopping, managing finances, etc.?: No Are you currently unemployed and looking for a job?: No Are you interested in more education?: No Please select the resources that you would like help with: None Currently or been in a relationship where the following occur: No concerns reported THRIVE Score: 0 AUDIT C Alcohol Use Questionnaire (AUDIT-C) 1. How often do you have a drink containing alcohol?: Never 3. How often do you have six or more drinks on one occasion?: Never Total Score: 0 KRISSY-7 AMB Questionnaire KRISSY-7 Date KRISSY - 7 assessed: 11/19/24 Feeling nervous, anxious, or on edge: 0 = Not at all Not being able to stop or control worryin = Not at all Worrying too much about different things: 0 = Not at all Trouble relaxin = Not at all Being so restless that it is hard to sit still: 0 = Not at all Becoming easily annoyed or irritable: 0 = Not at all Feeling afraid as if something awful might happen: 0 = Not at all Total KRISSY-7 score (0-4 normal; 5-9 mild; 10-14 moderate; 15-21 severe): 0 Source: Developed by Drs. Amadou Baxter, Joanie Palacio, Ty Thomas and colleagues, with an educational jody from [employer] ([employer] Review of Systems Const Denies body aches, Denies chills, Denies fever(s), Denies headache(s) and Denies poor appetite Eyes Reports no additional complaints ENT Denies dizziness and Denies headache(s) Card Denies chest pain and Denies dyspnea Resp Denies dyspnea Reports no additional complaints Musc Details: Left knee pain Reports abnormal gait Skin/Breast Reports system reviewed and no additional complaints, except as documented Neuro Reports abnormal gait, Denies dizziness and Denies headache(s) Psych Reports no additional complaints Physical exam (Primary Care) Vital Signs: Last Vital Signs Pulse 88 11/19/24 13:53 BP 136/84 11/19/24 13:53 Pulse Ox 94 11/19/24 13:53 Oxygen Delivery Method Room Air 11/19/24 13:53 BMI result Body Mass Index 30.2 Tobacco/Smoking Status: Tobacco use Status Tobacco use date assessed 11/19/24 11/19/24 13:59 Patient Tobacco Use Status Former Tobacco user 11/19/24 13:59 Tobacco use type Cigarette 11/19/24 13:59 e-Cigarette/Vaping Use Never Used 11/19/24 13:59 PHQ-9: PHQ-9 Score PHQ-9: Total score 0 11/19/24 13:59 Depression Screening Interpretation: Negative Thrive Assessment: Date of Thrive Assessment Date Thrive assessed 11/19/24 11/19/24 13:59 Currently or been in a relationship where the following occur: No concerns reported Const General: cooperative, healthy appearing, comfortable and no acute distress Orientation/consciousness: patient oriented x3 [facility] Head: Yes normocephalic Ears: hearing grossly normal bilaterally General nose exam: Normal external nose present Eyes General: appearance normal, both eyes and all related structures Conjunctivae: conjunctivae normal Neck Neck: Yes full ROM and Yes no lymphadenopathy Resp Effort & Inspection: normal respiratory effort Auscultation: clear to auscultation bilaterally, no crackles, no rales, no rhonchi and no wheezes Cardio Rate: regular rate Rhythm: regular rhythm Skin General skin exam: no rashes or lesions noted Neuro General: patient oriented x3 Gait exam (Neuro): Normal gait present Extrem Other: Intact strength, sensation, pulses in bilateral lower extremities. Tenderness to palpation over medial and lateral joint lines of left knee without swelling, erythema or warmth. No calf swelling or tenderness bilaterally General: Yes normal to inspection, Yes full ROM and No edema Psych Affect: normal affect Attitude: cooperative Insight: Good insight present (Psych) Judgement: Good judgement present (Psych) Coding Level of Care Code Est Pt Level 3 (60637) Diagnoses Left knee pain M25.562 Impaired fasting blood sugar R73.01 Overweight (BMI 25.0-29.9) E66.3 Essential hypertension I10 Hypertension type: essential hypertension Hypercholesterolemia E78.00 Assessment & Plan Assessment & Plan (1) Left knee pain: Code(s): M25.562 - Pain in left knee Category: Medical Plan: Plan to obtain left knee x-ray for further evaluation and referral was placed to physical therapy today. Recommend the use of Tylenol and Voltaren gel as needed for pain. Patient may also use compression brace and heating pad as needed. (2) Impaired fasting blood sugar: Code(s): R73.01 - Impaired fasting glucose Category: Medical Plan: Decrease the amount of carbohydrates such as pasta, bread, rice, and potatoes and limit the amount of sweets. Although fruits are generally healthy they should be eaten in moderation as they are still high in sugar. A1c 5.6% on last blood work (3) Overweight (BMI 25.0-29.9): Code(s): E66.3 - Overweight Category: Medical Plan: Healthy diet and regular exercise is encouraged. Patient declined Wegovy injection and we will work with patient financial specialist and exercise as tolerated. (4) Hypertension: Code(s): I10 - Essential (primary) hypertension Category: Medical Qualifiers: Hypertension type: essential hypertension Qualified Code(s): I10 - Essential (primary) hypertension Plan: Continue on current blood pressure medication. Avoid salt intake and encourage healthy diet and regular exercise. (5) Hypercholesterolemia: Code(s): E78.00 - Pure hypercholesterolemia, unspecified Category: Medical Plan: Avoid foods that are high in cholesterol such as red meat, fried foods, eggs and baked goods. Triglyceride goal of less than 150 and LDL goal of less than 130. Cholesterol at goal on last labs. Plan For her knee osteoarthritis, I am initiating an X-ray and referring her to physical therapy to manage her symptoms more effectively and potentially improve her knee function. She should apply Voltaren gel twice daily and manage any discomfort with Tylenol. Heat may be used for muscle relaxation while ice can provide symptomatic relief. Her dietary plan continues under a patient financial specialist's guidance to address weight and slightly elevated cholesterol levels. Orders: Orders XR knee LT 2V Today M25.562 - Pain in left knee PT Evaluation and Treatment Today M25.562 - Pain in left knee Medications: New diclofenac sodium 1% (Arthritis Pain (diclofenac)) apply to single elbow, wrist or hand; for hand includes palm/fingers/back of hand 2 grams topical QID 100 grams 0RF
== END 2024-11-19 14:48 | disposition home or self-care (01) ==
LOC: HO.HMCH 13:43
PROVIDERS: PCP Internal Medicine
DX: M25.562 Pain in left knee (principal); R73.01 Impaired fasting glucose; E66.3 Overweight; I10 Essential (primary) hypertension; E78.00 Pure hypercholesterolemia, unspecified

== ENCOUNTER → 2024-11-19 13:42 | Outpatient (BNVA) | payer MEDICARE, MEDICAID, SELFPAY | PROVIDERS: PCP Internal Medicine | DX: M25.562 Pain in left knee (principal); R73.01 Impaired fasting glucose; E66.3 Overweight; E78.00 Pure hypercholesterolemia, unspecified; I10 Essential (primary) hypertension | CPT/HCPCS: 99212 ==

== ENCOUNTER 2024-11-27 09:37 | Outpatient (REF) | payer MEDICARE, MEDICAID, SELFPAY ==
--- NOTE | ~2024-11-27 | XR_ITS ---
EXAMINATION: XR KNEE, LEFT CLINICAL INFORMATION: M25.562 - Pain in left knee COMPARISON: None available. TECHNIQUE: Two views of the left knee. FINDINGS: No fracture, dislocation, or suspicious bone lesion. Normal alignment. Mild tricompartmental joint is narrowing and osteoarthritis. No evidence of joint effusion. Normal soft tissues. XR/XR knee LT 2V IMPRESSION: No acute bony abnormalities. Mild tricompartmental osteoarthritis. Electronically signed by: Beltran Parham MD 11/27/2024 03:24 PM EDT
== END 2024-11-27 09:38 | disposition home or self-care (01) ==
LOC: HO.XRAY 09:37
PROVIDERS: PCP Internal Medicine
DX: M25.562 Pain in left knee (principal)
CPT/HCPCS: 73560

== ENCOUNTER → 2024-11-27 09:42 | Outpatient (BNV) | payer MEDICARE, MEDICAID, SELFPAY | PROVIDERS: PCP Internal Medicine; Visit Provider Radiology Diagnostic Radiology | DX: M25.562 Pain in left knee (principal) | CPT/HCPCS: 73560 ==

== ENCOUNTER 2024-12-28 14:35 | Outpatient (AMB) | payer MEDICARE, MEDICAID, SELFPAY ==
[2024-12-28 14:38] VITALS: BP 134/82; PULSE 71; O2SAT 97; BMI 29.3
--- NOTE | 2024-12-28 14:38 | A.OFFPC_ITS ---
Vital Signs 12/28/24 14:38 Height 5 ft 2 in Weight 160 lb BMI 29.3 BP 134/82 Blood Pressure Location Rt brachial Position Sitting Pulse 71 Pulse Source Pulse Oximeter Pulse Oximetry (%) 97 Oxygen Delivery Method Room Air Intake Visit Reasons: Left knee pain Allergies amoxicillin [Augmentin] Allergy (Unknown, Verified 12/28/24 14:45) Unknown clavulanic acid [Augmentin] Allergy (Unknown, Verified 12/28/24 14:45) unknown Ipresam Adverse Reaction (Mild, Uncoded 12/28/24 14:45) unknown Tobacco use date assessed: 11/19/24 Fall risk assessment: No Falls in past year Last assessed Fall Risk: 12/28/24 Dental Screening Dental Screen Date: 11/19/24 HPI Left knee pain HPI Details congestion chest , no fevers 3 weeks taking robitussin. 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 Breast calcification, right Adult general medical exam Post-menopausal Breast cancer screening by mammogram Thyroid nodule Hypertension Bipolar disorder Obesity (BMI 30-39.9) Splenic lesion Hypercholesterolemia Breast density Surgical History H/O colonoscopy History of surgery History of removal of retained hardware History of left breast biopsy History of vaginal hysterectomy H/O varicose vein stripping Family History Father Hypertension Mother Cancer Social History Household Members: None Housing: Apartment Alcohol intake: former Comment: once Q 6 months beer Patient Tobacco Use Status: Former Tobacco user Tobacco use type: Cigarette Years Smoked: years ago stopped e-Cigarette/Vaping Use: Never Used Second Hand Smoke Exposure: No service: No Current occupational status: retired Cognitive needs: No Hearing needs: No Vision needs: Yes Questionnaire PHQ-9 Over the last 2 weeks, how often have you been bothered by any of the following problems? 1. Little interest or pleasure in doing things: not at all 2. Feeling down, depressed, or hopeless: not at all 3. Trouble falling or staying asleep, or sleeping too much: not at all 4. Feeling tired or having little energy: not at all 5. Poor appetite or overeating: not at all 6. Feeling bad about yourself - or that you are a failure or have let yourself or your family down: not at all 7. Trouble concentrating on things, such as reading the newspaper or watching television: not at all 8. Moving or speaking so slowly that other people could have noticed. Or the opposite - being so fidgety or restless that you have been moving around a lot more than usual: not at all 9. Thoughts that you would be better off or of hurting yourself in some way: not at all Total score: 0 Depression Screening Interpretation: Negative Depression Screening Done: Yes Source: Developed by Drs. Amadou Baxter, Joanie Palacio, Ty Thomas and colleagues, with an educational jody from [employer]. Thrive Questionnaire Date Thrive assessed: 11/19/24 I am a: Patient What is your living situation today?: I have a steady place to live Within the past 12 months, did the food you bought not last and you didn't have the money to get more?: Never true Within the past 12 months, did you worry whether your food would run out before you got money to buy more?: Never true Do you have trouble paying for medicines?: No Do you have trouble getting transportation to medical appointments?: No Do you have trouble paying your heating and electricity bill?: No Do you have trouble taking care of your child, family member or friend?: No Do you have trouble with day-to-day activities such as bathing, preparing meals, shopping, managing finances, etc.?: No Are you currently unemployed and looking for a job?: No Are you interested in more education?: No Please select the resources that you would like help with: Food Currently or been in a relationship where the following occur: I choose not to answer THRIVE Score: 0 AUDIT C Alcohol Use Questionnaire (AUDIT-C) 1. How often do you have a drink containing alcohol?: Never 2. How many drinks containing alcohol do you have on a typical day when you are drinking?: 1 or 2 3. How often do you have six or more drinks on one occasion?: Never Total Score: 0 KRISSY-7 AMB Questionnaire KRISSY-7 Date KRISSY - 7 assessed: 11/19/24 Feeling nervous, anxious, or on edge: 0 = Not at all Not being able to stop or control worryin = Not at all Worrying too much about different things: 0 = Not at all Trouble relaxin = Not at all Being so restless that it is hard to sit still: 0 = Not at all Becoming easily annoyed or irritable: 0 = Not at all Feeling afraid as if something awful might happen: 0 = Not at all Total KRISSY-7 score (0-4 normal; 5-9 mild; 10-14 moderate; 15-21 severe): 0 Source: Developed by Drs. Amadou Baxter, Joanie Palacio, Ty Thomas and colleagues, with an educational jody from [employer]. Physical exam (Primary Care) Vital Signs: Last Vital Signs Pulse 71 12/28/24 14:38 BP 134/82 12/28/24 14:38 Pulse Ox 97 12/28/24 14:38 Oxygen Delivery Method Room Air 12/28/24 14:38 BMI result Body Mass Index 29.3 Tobacco/Smoking Status: Tobacco use Status Tobacco use date assessed 11/19/24 12/28/24 14:39 Patient Tobacco Use Status Former Tobacco user 12/28/24 14:39 Tobacco use type Cigarette 12/28/24 14:39 e-Cigarette/Vaping Use Never Used 12/28/24 14:39 PHQ-9: PHQ-9 Score PHQ-9: Total score 0 12/28/24 15:01 Depression Screening Interpretation: Negative Thrive Assessment: Date of Thrive Assessment Date Thrive assessed 11/19/24 12/28/24 14:39 Currently or been in a relationship where the following occur: I choose not to answer Const General: alert; No acute distress Eyes Conjunctivae: conjunctivae normal Resp Auscultation: clear to auscultation bilaterally Cardio Rate: regular rate Rhythm: regular rhythm GI Inspection: Yes normal to inspection Extrem General: Yes normal to inspection and No edema Immunizations Tenivac (PF) 5 Lf unit-2 Lf unit/0.5 mL intramuscular suspension Performing Provider: Alex Davis MD Performing Location[place] [facility] Administered by: Mary Ann Pereira CMA on 12/28/24 15:01 Dose Route Admin Location Dispensed Lot Number Expiration Date [facility] 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 0.5 mL IM Left Deltoid 0.5 mL [id number] 09/26/26 30525-061-36 [employer] VIS Given Date VIS Provided VIS Publication Date 12/28/24 Single Vaccine 21 Eligibility Eligibility Date Funding Source Not [facility] [place] Eligible 12/28/24 Private Coding Level of Care Code Est Pt Level 4 (01850) Complex EM visit Add On G2211 Diagnoses Osteoarthritis of left knee M17.12 Impaired fasting blood sugar R73.01 History of ductal carcinoma in situ (DCIS) of breast Z86.000 Overweight (BMI 25.0-29.9) E66.3 Essential hypertension I10 Hypertension type: essential hypertension Bipolar disorder, current episode mixed, moderate F31.62 Active/Remission status: currently active Current bipolar episode type: mixed Current episode severity: moderate Hypercholesterolemia E78.00 Assessment & Plan Assessment & Plan (1) Osteoarthritis of left knee: Code(s): M17.12 - Unilateral primary osteoarthritis, left knee Category: Medical Plan: Continue to lose the weight, keep exercise and may use diclofenac gel (2) Impaired fasting blood sugar: Code(s): R73.01 - Impaired fasting glucose Category: Medical Plan: Decrease the amount of carbohydrate intake, pasta, bread, rice and potatoes are all sugar and that is aside from all the sweet stuff, remember that fruits are good but they are Sweet also. (3) History of ductal carcinoma in situ (DCIS) of breast: Comment: Right breast August 2022 Code(s): Z86.000 - Personal history of in-situ neoplasm of breast Category: Medical Plan: Patient is up-to-date with mammogram continue to follow-up with Hematology- Oncology (4) Overweight (BMI 25.0-29.9): Code(s): E66.3 - Overweight Category: Medical Plan: Diet and exercise (5) Hypertension: Code(s): I10 - Essential (primary) hypertension Category: Medical Qualifiers: Hypertension type: essential hypertension Qualified Code(s): I10 - Essential (primary) hypertension Plan: Continue with blood pressure medication. Decrease salt intake and exercise on lisinopril 30 (6) Bipolar disorder: Comment: [facility] Code(s): F31.9 - Bipolar disorder, unspecified Category: Medical Qualifiers: Active/Remission status: currently active Current bipolar episode type: mixed Current episode severity: moderate Qualified Code(s): F31.62 - Bipolar disorder, current episode mixed, moderate Plan: Continue with counseling and therapy (7) Hypercholesterolemia: Code(s): E78.00 - Pure hypercholesterolemia, unspecified Category: Medical Plan: Avoid fried foods, chicken skin, eggs, butter margarine, pastries and meat. Be it pork or beef they have a lot of cholesterol LDL goal of less than 130 and triglyceride of less than 150 patient is at goal Plan History of Present Illness The patient is a 74-year-old female presenting with knee pain. She describes this as recurring with noted left knee osteoarthritis seen on prior x-ray. She associates increased activity on the elliptical with muscle-related discomfort. The clofenac gel offers some relief, though she has been using it inconsistently. Additionally, the patient reports upper respiratory congestion persisting for three weeks without fever, accompanied by cough. Robitussin provides partial symptomatic relief. The patient also facilitates relief with hydrating lemon water. Her chronic medical conditions include bipolar disorder, hypercholesterolemia, and essential hypertension. Recent labs revealed an LDL cholesterol of 122 and a blood glucose of 107 on November 04. The patient has a history of breast cancer diagnosed in 2022, with routine mammograms performed, but the latest is due. The patient notes a 5-pound weight loss due to lifestyle changes, including a modified diet controlled by her daughter. Health Maintenance - Mammogram is due; previous mammogram completed July 2024. - Cologuard is up to date. - Received RSV and pneumonia vaccines; tetanus vaccine due as last received in 2013. - Encouragement of lifestyle modifications, including exercise and diet, with successful recent weight loss of 5 pounds. - Blood pressure management with lisinopril 30 mg. - Cholesterol management with LDL goal of less than 130 and triglycerides less than 150. - Diabetes management with focus on diet and exercise to maintain glucose control. Social History - Patient resides with family; daughter is supportive in managing dietary habits. - Engages in regular physical activity including the use of an elliptical machine. Review of Systems - Musculoskeletal: Reports knee pain, particularly in the left knee after exercise. - Respiratory: Reports congestion and cough; denies fever. - General: Reports weight loss of 5 pounds. Physical Exam - Respiratory- Lungs auscultation reveals no abnormalities, with clear breath sounds noted. - Throat- Throat appears normal with no indications of inflammation or abnormalities. - Musculoskeletal- Left knee shows signs of arthritis, with no severity noted in subsequent observations. Results - Labs: Blood glucose level of 107, LDL cholesterol of 122 from November 04 results. - Imaging: Left knee x-ray indicates osteoarthritis. Plan For knee osteoarthritis, continuation of clofenac gel is advised, with a recommendation to monitor exercise intensity to prevent muscle strain. Robitussin should be used for symptomatic relief of respiratory congestion, and the patient is encouraged to maintain fluid intake. The management of essential hypertension with lisinopril remains at 30 mg. LDL cholesterol management includes reaching set goals with a focus on diet to also regulate blood glucose levels. A tetanus booster was administered, completing her vaccination update. Her next mammogram should be scheduled to address her screening for breast cancer. Recognizing the 5-pound weight loss observed through improved lifestyle choices, continued support for these changes is given. Patient was informed and verbally consented to the use of an ambient scribe for clinic note documentation during this visit. Discussion Notes I discussed with the patient her management plan concerning the knee osteoarthritis, advising continued use of clofenac gel and caution during physical activity to prevent overstressing the joint. I addressed the management of her respiratory congestion, recommending the continued use of Robitussin, reassurance of its viral nature, and the importance of maintaining hydration with lemon water as she is doing. We revised her hypertension and cholesterol management plans, reaffirming adherence to lisinopril and healthy lifestyle objectives, targeting LDL cholesterol levels below 130. Vaccination updates were noted, with a tetanus booster administered as discussed. The potential for a mammography exam was highlighted, recalling her history of breast cancer and ensuring timely screening. The achieved weight loss under new dietary guidance from her daughter was acknowledged positively. We outlined ongoing support while encouraging efforts towards weight management through routine follow-up and adherence to current plans. Patient Instructions - Continue using clofenac gel as prescribed for knee pain relief. - Pace yourself on the elliptical machine to prevent injury. - Use Robitussin and stay hydrated with fluids like lemon water for congestion. - Take lisinopril as currently prescribed. - Continue with a healthy diet and exercise routine to manage weight and glucose levels. - Schedule a mammogram for routine breast cancer screening. - Return for a follow-up visit as needed or if symptoms worsen. Orders: Orders Td Immunization Today Z23 - Encounter for immunization
== END 2024-12-28 15:07 | disposition home or self-care (01) ==
LOC: HO.HMCH 14:36
PROVIDERS: PCP Internal Medicine; Visit Provider Internal Medicine
DX: M17.12 Unilateral primary osteoarthritis, left knee (principal); R73.01 Impaired fasting glucose; F31.62 Bipolar disorder, current episode mixed, moderate; Z86.000 Personal history of in-situ neoplasm of breast; E66.3 Overweight; I10 Essential (primary) hypertension; E78.00 Pure hypercholesterolemia, unspecified; Z23 Encounter for immunization

== ENCOUNTER → 2024-12-28 14:35 | Outpatient (BNVA) | payer MEDICARE, MEDICAID, SELFPAY | PROVIDERS: PCP Internal Medicine; Visit Provider Internal Medicine | DX: Z23 Encounter for immunization (principal); M17.12 Unilateral primary osteoarthritis, left knee; R73.01 Impaired fasting glucose; E66.3 Overweight; Z68.29 Body mass index [BMI] 29.0-29.9, adult; I10 Essential (primary) hypertension; F31.62 Bipolar disorder, current episode mixed, moderate; E78.00 Pure hypercholesterolemia, unspecified; Z86.000 Personal history of in-situ neoplasm of breast; Z71.3 Dietary counseling and surveillance | CPT/HCPCS: 90471; 90714; 99212 ==

== ENCOUNTER 2025-02-04 14:00 | Outpatient (RCR) | payer MEDICARE, MEDICAID, SELFPAY ==
--- NOTE | 2025-01-13 14:34 | MHC.PT.EP ---
[facility] [place] Office [place] Office [place] Office [address] Dee Dee Marquis [address] [phone] F: [phone] F: [phone] F: [phone] F: [phone] Physical Therapy Plan of Care Date of Evaluation: 01/13/25 Date of Surgery: Diagnosis: LEFT KNEE PAIN Assessment: 74 YO FEMAE REF TO PT W Lt KNEE PAIN x 6 MONTHS AFTER USING AN ELLIPTICAL MACHINE AT THE GYM. SHE RESIDES ALONE, PURCHASED A Lt KNEE BRACE AT [facility] W SOME RELIEF, AND NOTES IS ABLE TO PERFORM HER REG ADLs HER Lt KNEE PAIN HAS DECR SINCE ONSET. OBJECTIVELY, THE Pt HAS Lt TERMINAL KNEE EXT DEFICIT, WEAKNESS IN Lt QUAD/ GLUTE MM, TIGHTNESS IN Lt HS/CALF, DECR SLS Lt > Rt LE, PAIN IN Lt PES ANSERINE W DECR LATERAL PATELLAR MOB, AND FLUCTUATING Lt KNEE PAIN IMPACTING FUNCTION. SHE HAS DIFFIC DESCENDING STAIRS, AND THE Pt NOTES SHE HAS BEEN ABLE TO RESUME MAJORITY OF ADLs. Frequency and Duration: The patient will be seen 2 x WK x 4 WKS Short Term Goals: *DECR Lt KNEE PAIN *INITIATE HEP *Lt KNEE FULL TERMINAL EXT, WFL Lt HS FLEXIB *IMPROVE CORE STAB-> DLS-> SLS Chief Medical Officer Goals: *Pt INDEP W HEP AND SX MGMT *IMPROVED LEFI 68/80 *SLS Lt x 10 SEC *Lt LE STRENGTH INCR BY 1/2-1 GRADE-> WFL LUMBOPELVIC SYMMETRY Treatment Plan: Modalities to reduce pain, spasms and effusion. Manual therapy to restore motion and function. Therapeutic exercise to improve strength and flexibility. Neuromuscular re-education for posture and balance. Therapeutic activities to return to functional activities of daily living. Electronically signed by: AMADOU POSADA,PT Please sign and return to therapist. Thank you for your referral.
--- NOTE | 2025-02-08 09:21 | MHC.PT.DC ---
[facility] [place] Office [place] Office [place] Office [address] Dee Dee Marquis 140 [facility] [phone] F: [phone] F: [phone] F: [phone] F: [phone] Physical Therapy Discharge Report Diagnosis: LEFT KNEE PAIN Date of Surgery: Date of Evaluation: 01/13/25 Date of Discharge: 02/08/25 Treatments to Date: 5 Cancellations to Date: No Shows to Date: Discharge Status: Achieved Goals Improved Function Independent with HEP Patient Elected to Stop Discharge Summary: PRETTY PRESENTED FOR PT AND NOTED SHE WAS FEELING MUCH BETTER, DENIED LEFT KNEE PAIN, AND IS INDEP W HEP. SHE FEELS READY FOR D/C THIS DATE W HER HEP AND SHE IS PLEASED W RESUMING REG ADLs/ ACTIVITIES. HER LEFI SCORE AT EVAL WAS 68/80 AND AT D/C, IT WAS 77/80. Electronically signed by: AMADOU POSADA,PT Please sign and return to therapist. Thank you for your referral.
== END 2025-02-08 09:21 | disposition home or self-care (01) ==
LOC: HO.PT 14:00
PROVIDERS: PCP Internal Medicine
DX: M25.562 Pain in left knee (principal)
CPT/HCPCS: 97110; 97140; 97162

== ENCOUNTER 2025-02-15 13:08 | Outpatient (AMB) | payer MEDICARE, MEDICAID, SELFPAY ==
--- NOTE | 2025-02-15 13:10 | A.OFFVIS_ITS ---
Vital Signs 02/15/25 13:15 Height 5 ft 2 in Weight 160 lb BMI 29.3 BP 148/89 H Blood Pressure Location Rt brachial Position Sitting Pulse 88 Intake Visit Reasons: 6 month breast exam Intake Note: Patient here for a 6m breast exam. Hx Rt breast ductal carcinoma in- situ. On letrozole Patient c/o: no concerns. Denies lumps, tenderness, nipple discharge. Mammo: 08-24-2024 Rn Utilization Management Um Required: No Accompanied by: Self / Same As Patient Allergies amoxicillin (Augmentin) Allergy (Unknown, Verified 02/15/25 13:15) Unknown clavulanic acid (Augmentin) Allergy (Unknown, Verified 02/15/25 13:15) unknown Ipresam Adverse Reaction (Mild, Uncoded 02/15/25 13:15) unknown HPI HPI 6 month breast exam: Details: She is here for follow-up for history of DCIS. She had undergone lumpectomy for the right breast last August, for atypical ductal hyperplasia and was noted to have DCIS on final pathology. She had finished radiation treatment last Nov, 2022. She says she is seeing Dr. Drummond of Oncology. 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 She says she feels well overall. She denies any palpable breast masses or new nipple or skin changes. Her last surveillance imaging was a mammogram lastp 08/24/2024 and this had benign findings. She denies any changes in her health overall since I last saw her 6 months ago. 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 Breast calcification, right Adult general medical exam Post-menopausal Breast cancer screening by mammogram Thyroid nodule Hypertension Bipolar disorder Obesity (BMI 30-39.9) Splenic lesion Hypercholesterolemia Breast density Surgical History H/O colonoscopy History of surgery History of removal of retained hardware History of left breast biopsy History of vaginal hysterectomy H/O varicose vein stripping Family History Father Hypertension Mother Cancer Social History Household Members: None Housing: Apartment Alcohol intake: former Comment: once Q 6 months beer Patient Tobacco Use Status: Former Tobacco user Tobacco use type: Cigarette Years Smoked: years ago stopped e-Cigarette/Vaping Use: Never Used Second Hand Smoke Exposure: No service: No Current occupational status: retired Cognitive needs: No Hearing needs: No Vision needs: Yes Review of Systems Const Denies chills and Denies fever(s) Card Denies chest pain, Denies dyspnea and Denies dyspnea on exertion Resp Denies cough, Denies dyspnea and Denies dyspnea on exertion GI Denies hematochezia and Denies change in bowel habits Denies hematuria Musc Denies back pain and Denies limited range of motion Neuro Denies focal weakness and Denies convulsions Psych Denies depression and Denies mood swings Physical Exam Const General: comfortable and no acute distress Chest Other: No palpable breast masses, no axillary lymphadenopathy, no nipple or skin changes Resp Effort & Inspection: normal respiratory effort Cardio Rate: regular rate GI Palpation (GI): Soft to palpation and nontender Assessment & Plan Assessment & Plan (1) History of ductal carcinoma in situ (DCIS) of breast: Comment: Right breast August 2022 Code(s): Z86.000 - Personal history of in-situ neoplasm of breast Category: Medical Plan: She is doing very well after lumpectomy. She remains on letrozole for hormonal treatment Current exam does not suggest any mass or any axillary lymphadenopathy. I reminded her about her next mammogram which should be around July of 2025. I will see her in the office after that. She also is to continue to follow up with Dr. Drummond of Oncology. Coding Level of Care Code Est Pt Level 3 (52795) Complex EM visit Add On G2211 Diagnoses History of ductal carcinoma in situ (DCIS) of breast Z86.000
[2025-02-15 13:15] VITALS: BP 148/89; PULSE 88; BMI 29.3
== END 2025-02-15 13:23 | disposition home or self-care (01) ==
LOC: HO.HGS 13:09
PROVIDERS: PCP Internal Medicine; Visit Provider Surgery
DX: Z86.000 Personal history of in-situ neoplasm of breast (principal)
CPT/HCPCS: 99213; G2211

== ENCOUNTER → 2025-02-15 13:08 | Outpatient (BNVA) | payer MEDICARE, MEDICAID, SELFPAY | PROVIDERS: PCP Internal Medicine; Visit Provider Surgery | DX: Z86.000 Personal history of in-situ neoplasm of breast (principal) | CPT/HCPCS: 99212 ==

== ENCOUNTER 2025-03-18 09:29 | Outpatient (AMB) | payer MEDICARE, MEDICAID, SELFPAY ==
--- NOTE | 2025-03-18 10:07 | MHC.AMNUTRGE ---
VS Expanded 03/18/25 10:09 Height 5 ft 2 in Weight 159 lb 13.362 oz BMI 29.2 Intake Visit Reasons: IFG Allergies amoxicillin (Augmentin) Allergy (Unknown, Verified 02/15/25 13:15) Unknown clavulanic acid (Augmentin) Allergy (Unknown, Verified 02/15/25 13:15) unknown Ipresam Adverse Reaction (Mild, Uncoded 02/15/25 13:15) unknown Nutrition Presentation Details: Pt presents for MNT for obesity with IFG Pt reports working on using divided plates following healthy plate method and feels very comfortable B: plant based [place] boiled egg or oatmeal with blueberries or applesauce L: 1 pm lunch: tuna/fruit/bread and lemon water Meal prep tray D: turkey patties baked , 1/2 baked potato with spray on butter and corn, water with lemon snack: 1% milk or blueberries , Physical activity : 3 weeks , 4 lbs weights (chair exercises at the [facility]) 32 oz water with lemon, + 3 cups of coffee , 16 oz of [place] denies constipation/diarrhea BS Monitoring Most Recent Diabetes Results: Cholesterol, (<200) 192 mg/dL 11/04/24 HDL Cholesterol, (>40) 42 mg/dL 11/04/24 Triglycerides, (<150) 140 mg/dL 11/04/24 Creatinine, (0.5-1.4) 0.71 mg/dL 11/04/24 BUN, (9-16) 17 mg/dL H 11/04/24 Sodium, (135-145) 139 mmol/L 11/04/24 Potassium, (3.3-5.1) 4.4 mmol/L 11/04/24 Chloride, (96-108) 106 mmol/L 11/04/24 Carbon Dioxide, (22-29) 28 mmol/L 11/04/24 Calcium, (8.4-10.2) 9.4 mg/dL 11/04/24 AST, (5-31) 22 U/L 11/04/24 ALT, (0-31) 24 U/L 11/04/24 Total Protein, (6.5-8.0) 6.8 g/dL 11/04/24 Albumin, (3.5-5.0) 4.2 g/dL 11/04/24 [facility] Medical History Left knee pain History of ductal carcinoma in situ (DCIS) of breast DCIS (ductal carcinoma in situ) 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 Breast calcification, right Adult general medical exam Post-menopausal Breast cancer screening by mammogram Thyroid nodule Hypertension Bipolar disorder Obesity (BMI 30-39.9) Splenic lesion Hypercholesterolemia Breast density Surgical History H/O colonoscopy History of surgery History of removal of retained hardware History of left breast biopsy History of vaginal hysterectomy H/O varicose vein stripping Family History Father Hypertension Mother Cancer Social History Household Members: None Housing: Apartment Alcohol intake: former Comment: once Q 6 months beer Patient Tobacco Use Status: Former Tobacco user Tobacco use type: Cigarette Years Smoked: years ago stopped e-Cigarette/Vaping Use: Never Used Second Hand Smoke Exposure: No service: No Current occupational status: retired Cognitive needs: No Hearing needs: No Vision needs: Yes Assessment & Plan Assessment & Plan (1) Obesity (BMI 30-39.9): Code(s): E66.9 - Obesity, unspecified Category: Medical Plan: Review low sodium/fiber rich foods ? Used wt : 87 kg (BMI 31 on 09/2022) (76 kg on 12/26/22, BMI 30.6 ) , 74 kg (08/2023), 02/2024, 73kg (03/22) Est kcal as per MSJ: 1475 (40% carb, 30% fat/prot) Est fluid needs: 2175 ml/d (25 ml/kg bw) Rec fiber: increase to 8-10 g per day and gradually increase to 25 g/d or as tolerated Rec Na: < 2000 mg /d Educate patient on: (R= Reviewed, V = verbalizes understanding N/R= Needs review N/A= not applicable) Food sources of carbohydrates and serving adequate serving sizes : R ,V Difference between complex carbohydrates and simple carbohydrates, role of fiber: R,V Differences between fats (MUFA/PUFA/saturated fats, trans fats) and food sources of various fats: R ,V Food sources of sodium and salt and healthy modifications for heart health and kidney health: R Vitamins and minerals: R How to interpret food labels: V Healthy Plate method concept: R V Physical activity: benefits and precaution: R Patient Instructions: Continue working on following healthy plate method Choose MUFA/PUFA source of foods 1-2 tbsp per day (nuts, seeds, avocado, olive oil) and include fish at least twice a week ) keep hydrated by having water with meals and snacks Coding Level of Care Code Nutr Indiv Subseq (98457) Diagnoses Obesity (BMI 30-39.9) E66.9 Time Spent (min) 30
[2025-03-18 10:09] VITALS: BMI 29.2
== END 2025-03-18 10:26 | disposition home or self-care (01) ==
LOC: HO.ENCR 09:30
PROVIDERS: PCP Internal Medicine; Visit Provider Dietitian, Registered
DX: E66.9 Obesity, unspecified (principal)

== ENCOUNTER → 2025-03-18 09:29 | Outpatient (BNVA) | payer MEDICARE, MEDICAID, SELFPAY | PROVIDERS: PCP Internal Medicine; Visit Provider Dietitian, Registered | DX: E66.9 Obesity, unspecified (principal); Z71.3 Dietary counseling and surveillance | CPT/HCPCS: 97803 ==

== ENCOUNTER 2025-04-13 14:13 | Outpatient (AMB) | payer MEDICARE, MEDICAID, SELFPAY ==
[2025-04-13 14:16] VITALS: BP 130/86; PULSE 76; TEMP 36.2; O2SAT 98; BMI 29.5
--- NOTE | 2025-04-13 14:16 | A.OFFPC_ITS ---
Vital Signs 04/13/25 14:16 Height 5 ft 2 in Weight 161 lb 2 oz BMI 29.5 BP 130/86 Blood Pressure Location Lt brachial Position Sitting Pulse 76 Pulse Source Pulse Oximeter Temp 97.1 F Temp Source Temporal Artery Scan Pulse Oximetry (%) 98 Oxygen Delivery Method Room Air Intake Visit Reasons: r breast cancer, HTN Allergies amoxicillin (Augmentin) Allergy (Unknown, Verified 04/13/25 14:19) Unknown clavulanic acid (Augmentin) Allergy (Unknown, Verified 04/13/25 14:19) unknown Ipresam Adverse Reaction (Mild, Uncoded 04/13/25 14:19) unknown Tobacco use date assessed: 04/13/25 Fall risk assessment: 2 + Falls in past year Last assessed Fall Risk: 04/13/25 Dental Screening Dental Screen Date: 04/13/25 Did you have a dental visit in the last 12 months?: Yes Did you have a dental problem in the last 6 months where you did not have access to dental care?: No Was dental information given to patient?: Patient has dentist HPI r breast cancer, HTN HPI Details fell twice- 1 week ago, then the next day- bruise R knee and reyn[place] did go to urgent care and was found to have bronchitis and was treated with antibiotic otherwise we have a 74-year-old overweight female with hypercholesterolemia bipolar disorder hypertension breast cancer history impaired glucose tolerance coming in for follow-up. 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 Breast calcification, right Adult general medical exam Post-menopausal Breast cancer screening by mammogram Thyroid nodule Hypertension Bipolar disorder Obesity (BMI 30-39.9) Splenic lesion Hypercholesterolemia Breast density Surgical History H/O colonoscopy History of surgery History of removal of retained hardware History of left breast biopsy History of vaginal hysterectomy H/O varicose vein stripping Family History Father Hypertension Mother Cancer Social History Household Members: None Housing: Apartment Alcohol intake: former Comment: once Q 6 months beer Patient Tobacco Use Status: Former Tobacco user Tobacco use type: Cigarette Years Smoked: years ago stopped e-Cigarette/Vaping Use: Never Used Second Hand Smoke Exposure: No service: No Current occupational status: retired Cognitive needs: No Hearing needs: No Vision needs: Yes Questionnaire PHQ-9 Over the last 2 weeks, how often have you been bothered by any of the following problems? 1. Little interest or pleasure in doing things: not at all 2. Feeling down, depressed, or hopeless: not at all 3. Trouble falling or staying asleep, or sleeping too much: not at all 4. Feeling tired or having little energy: not at all 5. Poor appetite or overeating: not at all 6. Feeling bad about yourself - or that you are a failure or have let yourself or your family down: not at all 7. Trouble concentrating on things, such as reading the newspaper or watching television: not at all 8. Moving or speaking so slowly that other people could have noticed. Or the opposite - being so fidgety or restless that you have been moving around a lot more than usual: not at all 9. Thoughts that you would be better off or of hurting yourself in some way: not at all Total score: 0 Depression Screening Interpretation: Negative Depression Screening Done: Yes Source: Developed by Drs. Amadou Baxter, Joanie Palacio, Ty Thomas and colleagues, with an educational jody from [employer]. Thrive Questionnaire Date Thrive assessed: 12/21/24 I am a: Patient What is your living situation today?: I have a steady place to live Within the past 12 months, did the food you bought not last and you didn't have the money to get more?: Never true Within the past 12 months, did you worry whether your food would run out before you got money to buy more?: Never true Do you have trouble paying for medicines?: No Do you have trouble getting transportation to medical appointments?: No Do you have trouble paying your heating and electricity bill?: No Do you have trouble taking care of your child, family member or friend?: No Do you have trouble with day-to-day activities such as bathing, preparing meals, shopping, managing finances, etc.?: No Are you currently unemployed and looking for a job?: No Are you interested in more education?: No Please select the resources that you would like help with: Food Currently or been in a relationship where the following occur: I choose not to answer THRIVE Score: 0 AUDIT C Alcohol Use Questionnaire (AUDIT-C) 1. How often do you have a drink containing alcohol?: Never 3. How often do you have six or more drinks on one occasion?: Never Total Score: 0 KRISSY-7 AMB Questionnaire KRISSY-7 Date KRISSY - 7 assessed: 11/19/24 Feeling nervous, anxious, or on edge: 0 = Not at all Not being able to stop or control worryin = Not at all Worrying too much about different things: 0 = Not at all Trouble relaxin = Not at all Being so restless that it is hard to sit still: 0 = Not at all Becoming easily annoyed or irritable: 0 = Not at all Feeling afraid as if something awful might happen: 0 = Not at all Total KRISSY-7 score (0-4 normal; 5-9 mild; 10-14 moderate; 15-21 severe): 0 Source: Developed by Drs. Amadou Baxter, Joanie Palacio, Ty Thomas and colleagues, with an educational jody from [employer]. Physical exam (Primary Care) Vital Signs: Last Vital Signs Temp 97.1 F 04/13/25 14:16 Pulse 76 04/13/25 14:16 BP 130/86 04/13/25 14:16 Pulse Ox 98 04/13/25 14:16 Oxygen Delivery Method Room Air 04/13/25 14:16 BMI result Body Mass Index 29.5 Tobacco/Smoking Status: Tobacco use Status Tobacco use date assessed 04/13/25 04/13/25 14:21 Patient Tobacco Use Status Former Tobacco user 04/13/25 14:21 Tobacco use type Cigarette 04/13/25 14:21 e-Cigarette/Vaping Use Never Used 04/13/25 14:21 PHQ-9: PHQ-9 Score PHQ-9: Total score 0 04/13/25 14:21 Depression Screening Interpretation: Negative Thrive Assessment: Date of Thrive Assessment Date Thrive assessed 12/21/24 04/13/25 14:21 Currently or been in a relationship where the following occur: I choose not to answer Const General: alert; No acute distress Eyes Conjunctivae: conjunctivae normal Resp Auscultation: clear to auscultation bilaterally Cardio Rate: regular rate Rhythm: regular rhythm GI Inspection: Yes normal to inspection Extrem General: Yes normal to inspection and No edema Coding Level of Care Code Est Pt Level 4 (43869) Complex EM visit Add On G2211 Diagnoses Essential hypertension I10 Hypertension type: essential hypertension Hypercholesterolemia E78.00 Impaired fasting blood sugar R73.01 Overweight (BMI 25.0-29.9) E66.3 Ductal carcinoma in situ (DCIS) of right breast D05.11 Laterality: right Primary osteoarthritis of left knee M17.12 Osteoarthritis type: primary Bipolar disorder, current episode mixed, moderate F31.62 Active/Remission status: currently active Current bipolar episode type: mixed Current episode severity: moderate Assessment & Plan Assessment & Plan (1) Hypertension: Code(s): I10 - Essential (primary) hypertension Category: Medical Qualifiers: Hypertension type: essential hypertension Qualified Code(s): I10 - Essential (primary) hypertension Plan: Continue with blood pressure medication. Decrease salt intake and exercise patient is on lisinopril 30 mg once a day (2) Hypercholesterolemia: Code(s): E78.00 - Pure hypercholesterolemia, unspecified Category: Medical Plan: Avoid fried foods, chicken skin, eggs, butter margarine, pastries and meat. Be it pork or beef they have a lot of cholesterol LDL goal of less than 130 and triglyceride of less than 150. Diet controlled (3) Impaired fasting blood sugar: Code(s): R73.01 - Impaired fasting glucose Category: Medical Plan: Decrease the amount of carbohydrate intake, pasta, bread, rice and potatoes are all sugar and that is aside from all the sweet stuff, remember that fruits are good but they are Sweet also. (4) Overweight (BMI 25.0-29.9): Code(s): E66.3 - Overweight Category: Medical Plan: Diet and exercise (5) DCIS (ductal carcinoma in situ): Comment: Right breast Augustuctal carcinoma in situ, nuclear grade 2-3, cribriform and comedo patterns, with central necrosis and focal calcifications, extending into lobules. Code(s): D05.10 - Intraductal carcinoma in situ of unspecified breast Category: Medical Qualifiers: Laterality: right Qualified Code(s): D05.11 - Intraductal carcinoma in situ of right breast Plan: Continue to follow-up with the surgeon, hematology oncology and up-to-date with mammogram (6) Osteoarthritis of left knee: Code(s): M17.12 - Unilateral primary osteoarthritis, left knee Category: Medical Qualifiers: Osteoarthritis type: primary Qualified Code(s): M17.12 - Unilateral primary osteoarthritis, left knee Plan: Keep active and exercise (7) Bipolar disorder: Comment: WES[place] Code(s): F31.9 - Bipolar disorder, unspecified Category: Medical Qualifiers: Active/Remission status: currently active Current bipolar episode type: mixed Current episode severity: moderate Qualified Code(s): F31.62 - Bipolar disorder, current episode mixed, moderate Plan: Continue with counseling and therapy
== END 2025-04-13 15:11 | disposition home or self-care (01) ==
LOC: HO.HMCH 14:14
PROVIDERS: PCP Internal Medicine; Visit Provider Internal Medicine
DX: I10 Essential (primary) hypertension (principal); F31.62 Bipolar disorder, current episode mixed, moderate; E66.3 Overweight; Z68.29 Body mass index [BMI] 29.0-29.9, adult; E78.00 Pure hypercholesterolemia, unspecified; R73.01 Impaired fasting glucose; D05.11 Intraductal carcinoma in situ of right breast; M17.12 Unilateral primary osteoarthritis, left knee

== ENCOUNTER → 2025-04-13 14:13 | Outpatient (BNVA) | payer MEDICARE, MEDICAID, SELFPAY | PROVIDERS: PCP Internal Medicine; Visit Provider Internal Medicine | DX: I10 Essential (primary) hypertension (principal); E78.00 Pure hypercholesterolemia, unspecified; F31.9 Bipolar disorder, unspecified; R73.01 Impaired fasting glucose; D05.11 Intraductal carcinoma in situ of right breast; M17.12 Unilateral primary osteoarthritis, left knee; F31.62 Bipolar disorder, current episode mixed, moderate; E66.3 Overweight; Z68.29 Body mass index [BMI] 29.0-29.9, adult | CPT/HCPCS: 96127; 99212 ==